=== PATIENT | female | born 1975 | race Two or more races ===

== ENCOUNTER 2022-02-01 08:40 | Outpatient (REF) | payer OTHER, SELFPAY ==
--- NOTE | ~2022-02-01 | MM_ITS ---
EXAMINATION: MM SCREENING DIGITAL BREAST TOMOSYNTHESIS, BILATERAL CLINICAL INFORMATION: Screening. Asymptomatic. The lifetime risk of breast cancer based on the Tyrer-Cuzick Model is 10%. COMPARISON: Mammography: 12/07/2018 (new baseline) TECHNIQUE: Digital breast tomosynthesis is performed in both the craniocaudal and mediolateral oblique views along with computer-aided detection (CAD). Synthesized 2D images are generated from the tomosynthesis. FINDINGS: There are scattered areas of fibroglandular density (ACR BI-RADS breast composition Category b). There are no significant masses, abnormal calcifications, or other abnormalities. Parenchymal pattern is similar to prior new baseline exam. There is no interval mass or architectural abnormality or abnormal calcifications. The axilla and skin contours are unremarkable. No significant changes. MM/MM tomosynthesis screening BI IMPRESSION: No mammographic evidence of malignancy. ASSESSMENT: BI-RADS 1: Negative RECOMMENDATION: Routine annual mammography screening. This patient's information was entered into a reminder system with a target due date for their next mammogram.
== END 2022-02-01 08:41 | disposition home or self-care (01) ==
LOC: HO.MAMMO 08:40
PROVIDERS: Visit Provider Internal Medicine
DX: Z12.31 Encounter for screening mammogram for malignant neoplasm of breast (principal)
CPT/HCPCS: 77063; 77067

== ENCOUNTER 2022-10-27 07:25 | Emergency (ER) | payer OTHER, SELFPAY ==
--- NOTE | ~2022-10-27 | XR_ITS ---
EXAMINATION: XR CHEST CLINICAL INFORMATION: ?asthma. COMPARISON: None TECHNIQUE: Frontal view of the chest was obtained. FINDINGS: Cardiac size is normal. No abnormal tracheal deviation. Central bronchial thickening/peribronchial cuffing is noted. There is obscuration of the right cardiac border in the lower chest. Opacities noted in this region may represent vascular markings; however, airspace opacities cannot be completely excluded. There are no pertinent prior studies available for comparison. Otherwise, no focal airspace opacities are noted. No pleural effusions, pulmonary edema or pneumothorax. Regional skeleton is intact. XR/XR chest 1V IMPRESSION: Central bronchial thickening is suspected. Obscuration of the right cardiac border in the lower chest with adjacent opacities which may reflect pulmonary vascular markings; however, the possibility of airspace opacity here cannot be completely excluded. Recommend clinical correlation.
[2022-10-27 07:27] VITALS: BP 141/78; PULSE 90; RESP 20; TEMP 36.1; O2SAT 100; BMI 25.0
[2022-10-27 08:56] LABS: IDNOW Serial# BCCEAD1C; Influenza A Negative (Negative); Influenza B2 Negative (Negative)
[2022-10-27 08:57] LABS: COVID-19 Test Negative (Negative); IDNOW Serial# 16C4AD1C
--- NOTE | 2022-10-27 09:14 | ED_ITS ---
HPI - General Adult General Chief complaint: Dyspnea Stated complaint: asthma Time Seen by Provider: 10/27/22 08:14 Source: patient Mode of arrival: ambulatory Limitations: no limitations History of Present Illness HPI narrative: 47-year-old female with history of asthma presents to ED for coughing for 1 week, and chest tightness the past 2 days/asthma exacerbation. Patient denies any leg swelling, calf pain, coughing up blood, recent long travel, recent surgery, pleurisy, control use, or recent trauma. Related Data Previous Rx's Medication Instructions Recorded amoxicillin 500 mg capsule 1,000 mg PO TID 5 days #30 caps 10/27/22 doxycycline hyclate 100 mg capsule 100 mg PO BID 5 days #10 caps 10/27/22 prednisone 20 mg tablet 40 mg PO DAILY 5 days #10 tabs 10/27/22 Allergies Allergy/AdvReac Type Severity Reaction Status Date / Time No Known Allergies Allergy Unverified 07/26/20 19:35 [No Known Allergies*] Review of Systems Review of Systems: Cough, chest tightness, asthma exacerbation Yes all other systems are reviewed and are negative [facility] Social History Social History Alcohol intake: never Smoked in Last 30 Days: No Use of substances other than those prescribed or required for medical reasons: No Advance Directives: No Advance Directives Information Provided: Yes Patient : Yes Physical Exam ED Vital Signs: Vital Signs - 24 hr 10/27/22 07:27 Temperature 97 F Pulse Rate 90 Respiratory Rate 20 Blood Pressure 141/78 H Pulse Oximetry 100 Oxygen Delivery Method Room Air BMI result Body Mass Index 25.0 Const General: cooperative, healthy appearing, comfortable, no acute distress, well developed, alert and awake Orientation/consciousness: oriented to person, oriented to place, oriented to time and patient oriented x3 [facility] Head: Yes normal to inspection, Yes No palpable skull fracture present, Yes normocephalic, Yes atraumatic and No abrasion Ears: hearing grossly normal bilaterally, external ears normal, TM's normal bilaterally, EAC's normal, mastoids normal and no periauricular adenopathy Face and sinus: Yes normal facial exam and Yes sinuses nontender Mouth: Normal oral and palatal mucosa present, lip normal and tongue normal Teeth and gingiva: dentition normal and gingiva normal Throat: Yes posterior oropharynx normal, Yes tonsils normal and Yes uvula midline Eyes General: appearance normal, both eyes and all related structures Neck Neck: Yes normal visual inspection, Yes full ROM, Yes no lymphadenopathy, Yes no meningeal signs, Yes trachea midline, Yes supple, No anterior neck swelling and No tender Chest Chest palpation & inspection: normal inspection of the chest and normal palpation of entire chest wall Resp Effort & Inspection: normal respiratory effort and able to speak in complete sentences Auscultation: clear to auscultation bilaterally Cardio Jugular venous distension: no JVD Heart sounds: S1 normal heart sound present and S2 normal heart sound present GI Inspection: Yes normal to inspection and No abdominal wall ecchymosis Palpation (GI): Soft to palpation, not firm, nontender, no guarding and not rigid General: No CVA tenderness and Yes no CVA tenderness Back/Spine/Pelvis Back: no CVA tenderness, No CVA tenderness and No back tenderness Skin General skin exam: no rashes or lesions noted and elasticity normal Neuro General: oriented to person, oriented to place, oriented to time, patient oriented x3, gait normal, tone normal, moves all extremities, Normal light touch and pain sensation, no meningeal signs, no focal motor deficits and CN's II-XI intact bilaterally Extrem Other: Bilateral lower extremities negative for swelling, edema, or calf tenderness. General: Yes normal to inspection and Yes full ROM Psych Appearance: grossly normal, well kempt and not disheveled Course Course Course Narrative: Chest x-ray, COVID, influenza ordered Reevaluation(s) Reevaluation #1: Chest x-ray shows bronchial thickening and pneumonia. COVID influenza negative. Patient will be discharged with antibiotics and steroids. Patient informed continue albuterol at home. Time: 09:18 Medical Decision Making Lab Data Labs: Lab Results 10/27/22 10/27/22 Range/Units 08:10 08:10 COVID-19 (JOHANA) Negative (Negative) COVID-19 Clin Com See Note Influenza Type A (TEQUILA) Negative (Negative) Influenza Type B (TEQUILA) Negative (Negative) Influenza A & B Note See Note Discharge Plan Discharge Clinical Impression: Community acquired pneumonia, Asthma with exacerbation Patient Disposition: Home, Self-Care Instructions: Asthma (ED), Community Acquired Pneumonia (ED) Additional Instructions: You will be discharged with antibiotics for pneumonia on the x-ray. Continues albuterol inhaler as needed at home. He will be discharged with steroids also. Return to the ED for any chest pain, leg swelling, calf pain, coughing up blood, chest pain on inspiration, weakness, dizziness, or any other concerning symptoms. Please follow-up with primary care provider Prescriptions: New amoxicillin 500 mg capsule 1,000 mg PO TID 5 Days Qty: 30 0RF doxycycline hyclate 100 mg capsule 100 mg PO BID 5 Days Qty: 10 0RF prednisone 20 mg tablet 40 mg PO DAILY 5 Days Qty: 10 0RF Stand Alone Forms: Work/School Release Interventions: ED Discharge Assessment Last Done: 10/27/22 09:27 Discharge Date/Time: 10/27/22 09:27 Print Language: Turkish
== END 2022-10-27 09:27 | disposition home or self-care (01) ==
PROVIDERS: Emergency Provider Emergency Medicine; PCP Internal Medicine
DX: J18.9 Pneumonia, unspecified organism (principal); R06.02 Shortness of breath; Z20.822 Contact with and (suspected) exposure to COVID-19; Z79.899 Other long term (current) drug therapy
CPT/HCPCS: 71045; 87502; 87635; 99283

== ENCOUNTER 2022-11-10 08:42 | Emergency (ER) | payer OTHER, SELFPAY ==
--- NOTE | ~2022-11-10 | XR_ITS ---
EXAMINATION: XR chest 2V CLINICAL INFORMATION: Reason for Exam cough, recent pna COMPARISON: 10/27/2022 TECHNIQUE: XR chest 2V Lungs and Justa: Mild diffuse increased interstitial lung marking and peribronchial cuffing might be chronic or mild small airway disease. No dense focal consolidation. Pleura: Normal. Costophrenic angles are sharp. No pneumothorax. Heart: The heart is normal in size. Mediastinum: The mediastinum is within normal limits.. Bones: Skeletal structures included are normal for patient's age. XR/XR chest 2V IMPRESSION: * Mild diffuse increased interstitial lung marking and peribronchial cuffing might be chronic or mild small airway disease. * No dense focal consolidation pneumonia.
[2022-11-10 08:44] VITALS: BP 137/82; PULSE 99; RESP 16; TEMP 36.8; O2SAT 99; BMI 25.0
--- NOTE | 2022-11-10 09:48 | ED_ITS ---
HPI - URI/Sore Throat General Chief Complaint: Upper Respiratory Symptoms Stated Complaint: asthma Time Seen by Provider: 11/10/22 09:07 Source: patient Mode of arrival: ambulatory Limitations: no limitations History of Present Illness HPI Narrative: 47-year-old female with history of hypothyroidism, asthma, hypertension presents with 5 days of cough and wheezing. Patient reports she was here on October 27 and diagnosed with pneumonia. Patient reports she did 5 days of azithromycin and prednisone and felt better. However symptoms began again. Patient using albuterol MDI with continued symptoms. She denies any fevers, chills, vomiting, diarrhea, chest pain, shortness of breath, skin rash, headache. Denies any leg swelling or leg pain. MD elicited complaint: cough Pertinent past history: asthma Related Data Previous Rx's Medication Instructions Recorded amoxicillin 500 mg capsule 1,000 mg PO TID 5 days #30 caps 10/27/22 doxycycline hyclate 100 mg capsule 100 mg PO BID 5 days #10 caps 10/27/22 prednisone 20 mg tablet 40 mg PO DAILY 5 days #10 tabs 10/27/22 prednisone 20 mg tablet 40 mg PO DAILY #10 tabs 11/10/22 Allergies Allergy/AdvReac Type Severity Reaction Status Date / Time No Known Allergies Allergy Unverified 07/26/20 19:35 [No Known Allergies*] Review of Systems Review of Systems: Yes all other systems are reviewed and are negative Constitutional: Constitutional: Reports no additional constitutional complaints, Denies body ache(s), Denies chills, Denies fever(s), Denies headac he(s) and Denies weakness Eyes: Eyes: Reports no additional eye complaints and Denies change in vision ENT: Reports system reviewed and no additional complaints, except as documented, Denies dizziness, Denies headache(s), Denies nasal congestion, Denies nasal discharge and Denies neck pain Cardiovascular: Cardiovascular: Reports no additional cardiovascular complaints, Denies chest pain, Denies leg edema and Denies dyspnea Respiratory: Respiratory: Reports no additional respiratory complaints, Reports cough, Denies dyspnea and Reports wheezing Gastrointestinal: Gastrointestinal: Reports no additional gastrointestinal complaints, Denies abdominal pain, Denies diarrhea, Denies nausea and Denies vomiting Genitourinary: Genitourinary: Reports no additional female genitourinary complaints and Denies urinary incontinence Musculoskeletal: Musculoskeletal: Reports no additional musculoskeletal complaints, Denies back pain, Denies arthralgias, Denies joint swelling, Denies neck pain, Denies numbness and Denies tingling Integumentary/Breasts: Skin/Breast: Reports system reviewed and no additional complaints, except as docu and Denies rash Neurologic: Reports system reviewed and no additional complaints, except as documented, Denies Abnormal speech present, Denies dizziness, Denies headache(s), Denies numbness, Denies tingling and Denies weakness Allergic/Immunologic: Allergic/Immunologic: Reports wheezing [facility] Past Medical History Attestation statement: The following information was validated with the patient. Source: old records reviewed and nursing notes reviewed Social History Social History Alcohol intake: never Smoked in Last 30 Days: No Use of substances other than those prescribed or required for medical reasons: No Advance Directives: No Advance Directives Information Provided: No Physical Exam Vital Signs: Vital Signs: Last Vital Signs Temp 98.2 F 11/10/22 08:44 Pulse 78 11/10/22 10:27 Resp 16 11/10/22 10:27 BP 137/82 11/10/22 08:44 Pulse Ox 99 11/10/22 08:44 O2 Del Method 11/10/22 08:44 BMI result Body Mass Index 25.0 Const: General: cooperative, healthy appearing, comfortable and no acute distress Orientation/consciousness: patient oriented x3 Limitations: no limitations HEENT: Head: Yes normal to inspection Ears: hearing grossly normal bilaterally and TM's normal bilaterally General nose exam: Normal external nose present Face and sinus: Yes normal facial exam Mouth: Normal oral and palatal mucosa present Throat: Yes posterior oropharynx normal, Yes tonsils normal and Yes uvula midline Eyes: General: appearance normal, both eyes and all related structures Pupils: Equal, round and reactive pupils present Neck: Neck: Yes normal visual inspection, Yes full ROM, Yes no lymphadenopathy and Yes no meningeal signs Chest: Chest palpation & inspection: normal inspection of the chest Resp: Other: Expiratory wheezing Effort & Inspection: normal respiratory effort Cardio: Rate: regular rate Rhythm: regular rhythm Peripheral pulses: Peripheral pulses 2+ throughout GI: Inspection: Yes normal to inspection Palpation (GI): Soft to palpation and nontender Auscultation: normal bowel sounds Back/Spine/Pelvis: Thoracic/Lumbar Spine: thoracic and lumbar spine normal to inspection Skin: General skin exam: no rashes or lesions noted Neuro: General: patient oriented x3, no meningeal signs, no focal motor deficits and normal sensation to monofilament Cranial nerves: Yes Equal, ro und and reactive pupils present Cognition (Neuro): normal cognition Speech: No Abnormal speech present Gait exam (Neuro): Normal gait present Motor exam (neuro): 5/5 motor strength present throughout Extrem: General: Yes normal to inspection, Yes no pedal edema and Yes no calf tenderness Course Course Course Narrative: Testing for flu, COVID, RSV are negative. Chest x-ray shows no acute finding. Patient with wheezing this improved after receiving a DuoNeb. Likely asthma exacerbation. Patient will be treated with course of prednisone. Patient reports adequate albuterol at home. Recommend follow-up with primary care doctor for further management of her asthma. Reviewed worrisome signs and symptoms when to return to the emergency room. Comfortable w/ discharge home. Medications Administered Discontinued Medications Generic Name Dose Route Start Last Admin Trade Name Freq PRN Reason Stop Dose Admin Albuterol/Ipratropium 3 ml 11/10/22 09:52 11/10/22 10:27 Albuterol/Iprat 2.5/0.5mg 3 Ml Ampul.Neb INHALE 11/10/22 09:53 3 ml ONCE ONE Administration Prednisone 60 mg 11/10/22 09:52 11/10/22 10:10 Prednisone 20 Mg Tablet PO 11/10/22 09:53 60 mg ONCE ONE Administration Medical Decision Making Medical Decision Making [facility] Narrative: 47-year-old female with a history of asthma here with 5 days of cough and wheezing. Patient with recent pneumonia treated with azithromycin with improvement of symptoms. Vitals stable. Expiratory wheezing throughout. Will send testing for flu, COVID, RSV. Will obtain chest x-ray. Patient received DuoNeb and p.o. prednisone. Differential Diagnosis Differential Diagnoses: The differential diagnosis associated with the presentation includes Asthma exacerbation, pneumonia, influenza, viral syndrome Lab Data [facility] Lab Attestation statement: I reviewed the patient's lab results. Labs: Lab Results 11/10/22 Range/Units 10:32 Influenza Type A (PCR) NEGATIVE (Negative) Influenza Type B (PCR) NEGATIVE (Negative) RSV RNA Qual (PCR) NEGATIVE (Negative) SARS-CoV-2 RNA (RT-PCR) NEGATIVE (Negative) Independent Interpretation I performed an independent interpretation of an: Plain X-Ray (I independently reviewed the x-ray which shows No signs of pneumonia) Radiology Impression Discussion of test interpretation with radiology: I have reviewed the radiologist's reading. Radiologist Impression: XR/XR chest 2V IMPRESSION: ? *? Mild diffuse increased interstitial lung marking and peribronchial cuffing might be chronic or mild small airway disease. ? *? No dense focal consolidation pneumonia. Discharge Plan Discharge Clinical Impression: Upper respiratory infection, Asthma exacerbation Patient Disposition: Home, Self-Care Instructions: Asthma (ED), Upper Respiratory Infection (ED) Additional Instructions: X-ray shows no signs of pneumonia Testing for flu, COVID, RSV are negative Take the prednisone as prescribed Continue your inhaler. Return for worsening symptoms Prescriptions: New prednisone 20 mg tablet 40 mg PO DAILY Qty: 10 0RF No Action amoxicillin 500 mg capsule 1,000 mg PO TID 5 Days Qty: 30 0RF doxycycline hyclate 100 mg capsule 100 mg PO BID 5 Days Qty: 10 0RF prednisone 20 mg tablet 40 mg PO DAILY 5 Days Qty: 10 0RF Referrals: Cora Deleon MD [Primary Care Provider] - 10 days Stand Alone Forms: Work/School Release
[2022-11-10] MEDS: predniSONE 20 MG TABLET 60 MG PO (10:10)
[2022-11-10 10:27] VITALS: PULSE 78; RESP 16; O2SAT 98
[2022-11-10] MEDS: Albuterol/Iprat 2.5/0.5MG 3 ML AMPUL.NEB INHALE (10:27)
[2022-11-10 11:43] LABS: Influenza A PCR NEGATIVE (Negative); Influenza B PCR NEGATIVE (Negative); Resp Syncy Virus RNA Qual PCR NEGATIVE (Negative); SARS COV2 PCR INHOUSE NEGATIVE (Negative)
== END 2022-11-10 12:37 | disposition home or self-care (01) ==
PROVIDERS: Nurse Practitioner Family; Emergency Provider Student in an Organized Health Care Education/Training Program; PCP Internal Medicine
DX: J06.9 Acute upper respiratory infection, unspecified (principal); J45.901 Unspecified asthma with (acute) exacerbation; Z20.828 Contact with and (suspected) exposure to other viral communicable diseases
CPT/HCPCS: 0241U; 71046; 94640; 99284

== ENCOUNTER 2023-02-28 08:03 | Outpatient (REF) | payer OTHER, SELFPAY ==
--- NOTE | ~2023-02-28 | MM_ITS ---
EXAMINATION: MM SCREENING DIGITAL BREAST TOMOSYNTHESIS, BILATERAL CLINICAL INFORMATION: Screening. Asymptomatic. The lifetime risk of breast cancer based on the Tyrer-Cuzick Model is 10%. COMPARISON: Mammography: 02/01/2022, 12/07/2018 (new baseline) TECHNIQUE: Digital breast tomosynthesis is performed in both the craniocaudal and mediolateral oblique views along with computer-aided detection (CAD). Synthesized 2D images are generated from the tomosynthesis. Additional exaggerated left CC view is provided. FINDINGS: There are scattered areas of fibroglandular density (ACR BI-RADS breast composition Category b). Breast tissue composition borders on heterogeneously dense. There are no significant masses, abnormal calcifications, or other abnormalities. No developing density or architectural abnormality. The axilla are similar to previous studies. The skin contours are unremarkable. There are no significant changes from prior exams. MM/MM tomosynthesis screening BI IMPRESSION: No mammographic evidence of malignancy. ASSESSMENT: BI-RADS 1: Negative RECOMMENDATION: Routine annual mammography screening. This patient's information was entered into a reminder system with a target due date for their next mammogram.
== END 2023-02-28 08:04 | disposition home or self-care (01) ==
LOC: HO.MAMMO 08:03
PROVIDERS: PCP Internal Medicine; Visit Provider Internal Medicine
DX: Z12.31 Encounter for screening mammogram for malignant neoplasm of breast (principal)
CPT/HCPCS: 77063; 77067

== ENCOUNTER 2023-08-21 04:13 | Emergency (ER) | payer OTHER, SELFPAY ==
--- NOTE | 2023-08-21 | ECG_ITS ---
Test Reason : TACHYCARDIA Blood Pressure : / mmHG Vent. Rate : 105 BPM Atrial Rate : 105 BPM P-R Int : 118 ms QRS Dur : 090 ms QT Int : 334 ms P-R-T Axes : 057 051 058 degrees QTc Int : 441 ms Sinus tachycardia RSR' or QR pattern in V1 suggests right ventricular conduction delay Intra-ventricular conduction delay Nonspecific ST abnormality Lateral leads Abnormal ECG No previous ECGs available Referred By: Generic ED Physician Electronically Signed By:REYMUNDO TOLEDO MD
--- NOTE | ~2023-08-21 | CT_ITS ---
EXAMINATION: CT ABDOMEN AND PELVIS WITHOUT CONTRAST CLINICAL INFORMATION: Right renal colic COMPARISON: None available. TECHNIQUE: Multidetector volumetric imaging was performed from the superior aspect of the liver through the pubic symphysis. Sagittal and coronal reformatted images were obtained on the technologist's workstation. This CT examination was performed using dose optimization techniques as appropriate, variously including the following: *Automated exposure control *Adjustment of mA and/or kV according to patient size (this includes techniques or standardized protocols for targeted exams where dose is matched to indication/reason for exam; i.e. extremities or head) *Use of iterative reconstruction technique DLP: 443 mGy-cm FINDINGS: LUNG BASES: Subsegmental atelectasis within the middle lobe and lingula. LIVER, GALLBLADDER, AND BILIARY TREE: The liver is normal in size, shape, and attenuation. No focal hepatic lesion or biliary ductal dilatation is present. The gallbladder is unremarkable with no evidence of radiopaque gallstones, gallbladder wall thickening, or obvious pericholecystic inflammatory changes. PANCREAS: Unremarkable. SPLEEN: Unremarkable. ADRENAL GLANDS: Unremarkable. KIDNEYS AND URETERS: Bilateral simple fluid attenuating renal cysts are benign. No follow-up imaging recommended. Mild right pelvocaliectasis without belen hydronephrosis. There is mild prominence of the right ureter and periureteral fat stranding. No urinary calculi are identified. BLADDER: Unremarkable. GASTROINTESTINAL TRACT: The small and large bowel are unremarkable. The appendix is unremarkable. ABDOMINAL WALL: Small fat-containing umbilical hernia. LYMPH NODES: Normal. VASCULAR: Unremarkable. PELVIC VISCERA: Uterus and adnexa unremarkable. OSSEOUS STRUCTURES: No acute or suspicious osseous abnormalities. CT/CT abdomen pelvis wo IV con IMPRESSION: * No urinary calculi are identified. * There is mild right pelvocaliectasis and mild prominence of the right ureter with periureteral fat stranding. This could be compatible with a recently passed stone or ureteritis. Please correlate with urinalysis.
[2023-08-21 04:15] VITALS: BP 110/59; PULSE 125; RESP 18; TEMP 37.7; O2SAT 95; BMI 25.1
[2023-08-21 04:38] VITALS: BP 112/53; PULSE 111; RESP 18; TEMP 37.7; O2SAT 94
--- NOTE | 2023-08-21 04:51 | PC.NURSE ---
this rn assumed care of pt. pt a&ox3. respirations even and unlabored. pt coming from home reporting sudden onset of right flank pain with burning with urination. pt reports having one episode of nausea and vomiting before coming to the ED. pt denies abdominal pain, chest pain and SOB. pt reports blood in urine but states she is also on her period. pt right flank tender to touch, abdomen soft non tender to touch. pt denies trauma to the back. pt sinus tachy on tele 114-117. Iv established, labs and urine obtained and sent to lab.
[2023-08-21 04:52] LABS: Basophils Percent Auto 0.3 % (0-2); Eosinophils Absolute Auto 0.1 X10*3/uL (0.0-0.4); Eosinophils Percent Auto 0.4 % (0-4); Hematocrit 26.4 % (37.0-47.0); Hemoglobin 7.9 g/dl (12.0-16.0); Imm Gran Abs Auto 0.05 X10*3/uL (0.00-0.03); Imm Gran Pct Auto 0.4 % (0.0-0.4); Lymphocytes Absolute Auto 1.4 X10*3/uL (1.2-4.9); Lymphocytes Percent Auto 10.1 % (20-40); MANUAL DIFF FLAG NO; Mean Corpuscular HGB Conc 29.9 g/dl (31.0-35.0); Mean Corpuscular Hemoglobin 19.1 pg (27.0-33.0); Monocytes Absolute Auto 0.1 X10*3/uL (0.1-1.2); Monocytes Percent Auto 0.8 % (2-11); Platelet Count 437 X10*3/uL (160-400); Red Blood Count 4.14 X10*6/uL (4.20-5.50); White Blood Count 13.7 X10*3/uL (4.8-10.8)
[2023-08-21 04:53] LABS: Mean Corpuscular Volume 63.8 fL (80.0-98.0)
--- NOTE | 2023-08-21 05:01 | ED_ITS ---
HPI - Female Genitourinary General Chief complaint: Urogenital-Female Stated complaint: Pain in lower right side Time Seen by Provider: 08/21/23 04:56 Source: patient Mode of arrival: ambulatory Limitations: no limitations History of Present Illness HPI Narrative: Patient with no significant past medical history of kidney stone or gallstone comes here with sudden onset of right flank pain started at 22:00 with nausea vomited 1 time no fever had some chills no hematuria had slight dysuria no frequency no abdominal pain or distention Related Data Previous Rx's Medication Instructions Recorded amoxicillin 500 mg capsule 1,000 mg (2 x 500 mg) PO TID 5 10/27/22 days #30 caps doxycycline hyclate 100 mg capsule 100 mg PO BID 5 days #10 caps 10/27/22 prednisone 20 mg tablet 40 mg (2 x 20 mg) PO DAILY 5 days 10/27/22 #10 tabs prednisone 20 mg tablet 40 mg (2 x 20 mg) PO DAILY #10 tabs 11/10/22 cefuroxime axetil 250 mg tablet 250 mg PO BID 10 days #20 tabs 08/21/23 ibuprofen 600 mg tablet 600 mg PO Q6H PRN fever or pain 08/21/23 #30 tabs Allergies Allergy/AdvReac Type Severity Reaction Status Date / Time No Known Allergies Allergy Unverified 07/26/20 19:35 [No Known Allergies*] Review of Systems 2 Review of Systems: Yes all other systems are reviewed and are negative [facility] Social History Social History Alcohol intake: current Alcohol intake frequency: holidays/special occasions only Smoked in Last 30 Days: No Use of substances other than those prescribed or required for medical reasons: No Advance Directives: No Advance Directives Information Provided: No Patient : No Physical Exam 2 Vital Signs: Vital Signs: Last Vital Signs Temp 98.2 F 08/21/23 06:42 Pulse 87 08/21/23 06:48 Resp 18 08/21/23 06:48 BP 90/48 L 08/21/23 06:48 Pulse Ox 98 08/21/23 06:48 O2 Del Method Room Air 08/21/23 06:48 BMI result Body Mass Index 25.1 Appearance: Alert. Oriented X3. Mild distress Eyes: PERRLA, ENT: Pharynx normal. Oral Mucosa moist Neck: Normal inspection. Neck supple. CVS: Normal heart rate and rhythm. Pulses normal. Respiratory: No respiratory distress. Equal air entry bilateral, no wheezing/rales/rhonchi Abdomen: Soft and nontender. Bowel sounds are present, no mass palpable, R CVA tenderness Skin: Skin warm and dry. Normal skin color. Normal skin turgor. Extremities: No lower extremity edema. No calf tenderness Neuro: Oriented X 3. Medications Administered Discontinued Medications Generic Name Dose Route Start Last Admin Trade Name Freq PRN Reason Stop Dose Admin Acetaminophen 975 mg 08/21/23 05:51 08/21/23 06:15 Acetaminophen 325 Mg Tablet PO 08/21/23 05:52 975 mg ONCE ONE Administration Ferrous Sulfate 324 mg 08/21/23 05:51 08/21/23 06:15 Ferrous Sulfate 324 Mg Tablet.Dr PO 08/21/23 05:52 324 mg ONCE ONE Administration Sodium Chloride 1,000 mls @ 999 mls/hr 08/21/23 05:05 08/21/23 05:13 Ns IV 08/21/23 06:05 999 mls/hr .Q1H1M ONE Administration Ceftriaxone Sodium 1 gm/ 50 mls @ 100 mls/hr 08/21/23 05:48 08/21/23 06:45 Sodium Chloride IV 08/21/23 06:17 Infused ONCE ONE Infusion Sodium Chloride 1,000 mls @ 999 mls/hr 08/21/23 05:51 08/21/23 06:15 Ns IV 08/21/23 06:51 999 mls/hr .Q1H1M ONE Administration Ketorolac Tromethamine 30 mg 08/21/23 05:05 08/21/23 05:13 Ketorolac Tromethamine 30 Mg/Ml Vial IVPUSH 08/21/23 05:06 30 mg ONCE ONE Administration Morphine Sulfate 4 mg 08/21/23 05:05 08/21/23 05:14 Morphine Sulfate 4 Mg/Ml Cartridge IVPUSH 08/21/23 05:06 4 mg ONCE ONE Administration Protocol Ondansetron HCl 4 mg 08/21/23 05:05 08/21/23 05:13 Ondansetron Hcl 4 Mg/2 Ml Vial IVPUSH 08/21/23 05:06 4 mg ONCE ONE Administration Medical Decision Making Medical Decision Making MDM Narrative: Patient with possible recently passed kidney stone with UTI not septic lactic acid normal was given dose of Rocephin discharge patient home on Ceftin and tramadol for pain Differential Diagnosis Differential Diagnoses: The differential diagnosis associated with the presentation includes Renal colic/stone/UTI/gallstone Lab Data [facility] Lab Attestation statement: I reviewed the patient's lab results. 08/21/23 04:46 08/21/23 04:46 Labs: Lab Results 08/21/23 08/21/23 08/21/23 Range/Units 04:46 05:01 06:13 WBC 13.7 H (4.8-10.8) X10*3/uL RBC 4.14 L (4.20-5.50) X10*6/uL Hgb 7.9 L (12.0-16.0) g/dl Hct 26.4 L (37.0-47.0) % MCV 63.8 L (80.0-98.0) fL MCH 19.1 L (27.0-33.0) pg MCHC 29.9 L (31.0-35.0) g/dl RDW 18.0 H (11.0-16.0) % Plt Count 437 H (160-400) X10*3/uL MPV 9.0 L (9.4-12.3) fL Immature Gran % (Auto) 0.4 (0.0-0.4) % Neut % (Auto) 88.0 H (45-73) % Lymph % (Auto) 10.1 L (20-40) % Webster % (Auto) 0.8 L (2-11) % Eos % (Auto) 0.4 (0-4) % Baso % (Auto) 0.3 (0-2) % Lymph # (Auto) 1.4 (1.2-4.9) X10*3/uL Webster # (Auto) 0.1 (0.1-1.2) X10*3/uL Eos # (Auto) 0.1 (0.0-0.4) X10*3/uL Baso # (Auto) 0.0 (0.0-0.2) X10*3/uL Abs Immat Gran (auto) 0.05 H (0.00-0.03) X10*3/uL Absolute Neuts (auto) 12.0 H (2.0-8.3) x10*3/uL Absolute Nucleated RBC 0.000 (0.0-0.012) X10*3/uL Nucleated RBC % (auto) 0.0 (0.0-0.2) /100WBC Sodium 142 (135-145) mmol/L Potassium 3.4 (3.3-5.1) mmol/L Chloride 105 (96-108) mmol/L Carbon Dioxide 24 (22-29) mmol/L Anion Gap 16 (12-20) BUN 19 H (9-16) mg/dL Creatinine 0.80 (0.5-1.4) mg/dL Estim Creat Clear Calc 83.6 Estimated GFR > 60 Random Glucose 108 (60-115) mg/dL Lactic Acid 1.8 (0.5-2.0) mmol/L Calcium 8.9 (8.4-10.2) mg/dL Total Bilirubin 0.7 (0.0-1.0) mg/dL AST 12 (5-31) U/L ALT 13 (0-31) U/L Alkaline Phosphatase 53 (39-117) U/L Total Protein 6.6 (6.5-8.0) g/dL Albumin 3.8 (3.5-5.0) g/dL Urine Color Yellow Urine Appearance Cloudy Urine pH 5.5 (5.0-9.0) Ur Specific Flora 1.015 (1.005-1.025) Urine Protein Trace (Neg-Trace) mg/dL Urine Glucose (UA) Negative (Negative) mg/dL Urine Ketones Negative (Negative) mg/dL Urine Blood Trace H (Negative) Urine Nitrite Positive H (Negative) Ur Leukocyte Esterase Large (3+) H (Negative) Urine RBC 0-2 (0-2) /HPF Urine WBC >50 H (0-5) /HPF Ur Squamous Epith Cells 0-2 (0-2) /HPF Urine Bacteria 4+ (None Seen) Hyaline Casts 0-2 (0-2) /LPF Urine Test NEGATIVE (NEGATIVE) COVID-19 (JOHANA) Negative (Negative) COVID-19 Clin Com See Note Radiology Impression Discussion of test interpretation with radiology: I have reviewed the radiologist's reading. Radiologist Impression: RDER #: [id number] CT/CT abdomen pelvis wo IV con IMPRESSION: * No urinary calculi are identified. * There is mild right pelvocaliectasis and mild prominence of the right ureter with periureteral fat stranding. This could be compatible with a recently passed stone or ureteritis. Please correlate with urinalysis. Discharge Plan Discharge Clinical Impression: Urinary tract infection, Renal colic on right side Patient Disposition: Home, Self-Care Instructions: Urinary Tract Infection in Women (ED), Renal Colic (ED) Additional Instructions: Drink plenty of fluids Possibly you have passed a kidney stone Antibiotic as prescribed Ibuprofen for pain Prescriptions: New cefuroxime axetil 250 mg tablet 250 mg PO BID 10 Days Qty: 20 0RF ibuprofen 600 mg tablet 600 mg PO Q6H PRN (Reason: fever or pain) Qty: 30 0RF No Action prednisone 20 mg tablet 40 mg PO DAILY Qty: 10 0RF amoxicillin 500 mg capsule 1,000 mg PO TID 5 Days Qty: 30 0RF doxycycline hyclate 100 mg capsule 100 mg PO BID 5 Days Qty: 10 0RF prednisone 20 mg tablet 40 mg PO DAILY 5 Days Qty: 10 0RF
[2023-08-21 05:03] LABS: COVID-19 Test Negative (Negative); IDNOW Serial# 6674DD1D
[2023-08-21 05:05] LABS: Alanine Aminotransferase 13 U/L (0-31); Albumin Level 3.8 g/dL (3.5-5.0); Alkaline Phosphatase 53 U/L (39-117); Anion Gap 16 (12-20); Aspartate Amino Transferase 12 U/L (5-31); Bilirubin Total 0.7 mg/dL (0.0-1.0); Blood Urea Nitrogen 19 mg/dL (9-16); Calcium 8.9 mg/dL (8.4-10.2); Carbon Dioxide 24 mmol/L (22-29); Chloride 105 mmol/L (96-108); Creatinine Clr Calc Pharmacy 83.6; Estimated Glomerular Filt Rate > 60; Glucose Random 108 mg/dL (60-115); Potassium 3.4 mmol/L (3.3-5.1); Sodium 142 mmol/L (135-145); Total Protein 6.6 g/dL (6.5-8.0)
[2023-08-21 05:05] LABS: UPreg QC Valid YES
[2023-08-21 05:07] LABS: Appearance Urine Cloudy; Color Urine Yellow; Glucose Urine UA Negative (Negative); Leukocyte Esterase Urine Large (3+) (Negative); Nitrite Urine Positive (Negative); PH 5.5 (5.0-9.0); Specific Gravity - Urine 1.015 (1.005-1.025); UMIC TRIGGER UACC YES; Urine Blood Trace (Negative); Urine Ketones Negative (Negative); Urine Pregnancy NEGATIVE (NEGATIVE); Urine Protein Trace mg/dL (Neg-Trace)
[2023-08-21 05:12] LABS: Bacteria Urine 4+ (None Seen); Hyaline Casts Urine 0-2 /LPF (0-2); RBC Urine 0-2 /HPF (0-2); Squamous Epithelial Cell Urine 0-2 /HPF (0-2); UACC Culture Trigger YES; WBC Urine >50 /HPF (0-5)
[2023-08-21] MEDS: Ketorolac Tromethamine 30 MG/ML VIAL IVPUSH (05:13)
[2023-08-21] MEDS: ondansetron HCL 4 MG/2 ML VIAL IVPUSH (05:13)
[2023-08-21] MEDS: 0.9 % Sodium Chloride 1,000 ML 999 ML IV ×2 (05:13→06:15)
[2023-08-21] MEDS: Morphine Sulfate 4 MG/ML CARTRIDGE IVPUSH (05:14)
[2023-08-21] MEDS: Acetaminophen 325 MG TABLET 975 MG PO (06:15)
[2023-08-21] MEDS: Ferrous Sulfate 324 MG TABLET.DR PO (06:15)
[2023-08-21] MEDS: cefTRIAXone sodium 1 GM in 0.9 % Sodium Chloride 50 ML IV (06:22)
[2023-08-21 06:29] LABS: Lactic Acid 1.8 mmol/L (0.5-2.0)
[2023-08-21 06:42] VITALS: BP 88/47; PULSE 86; RESP 18; TEMP 36.8; O2SAT 98
--- NOTE | 2023-08-21 06:45 | PC.NURSE ---
Iv normal saline liter piggy back hanging at this time. iv antibiotic complete at this time.
[2023-08-21 06:48] VITALS: BP 90/48; PULSE 87; RESP 18; O2SAT 98
[2023-08-21 07:07] VITALS: BP 85/46; PULSE 90; RESP 15; TEMP 36.9; O2SAT 96
== END 2023-08-21 07:39 | disposition home or self-care (01) ==
PROVIDERS: Emergency Provider Internal Medicine; PCP Internal Medicine
DX: N39.0 Urinary tract infection, site not specified (principal); B96.20 Unspecified Escherichia coli [E. coli] as the cause of diseases classified elsewhere; N23 Unspecified renal colic; Z11.52 Encounter for screening for COVID-19
CPT/HCPCS: 36415; 74176; 80053; 81001; 81025; 83605; 85025; 87040; 87086; 87088; 87186; 87635; 93005; 96361; 96374; 96375; 99284; 99285; J0696; J1885; J2270; J2405

== ENCOUNTER 2024-01-09 07:34 | Outpatient (REF) | payer OTHER, SELFPAY ==
--- NOTE | ~2024-01-09 | XR_ITS ---
EXAMINATION: XR FOOT, RIGHT CLINICAL INFORMATION: Right heel pain COMPARISON: None available. TECHNIQUE: AP, lateral, and oblique views of the right foot. FINDINGS: The bones are intact. No fracture. Alignment is anatomic. Joint spaces are maintained. There is a large Achilles enthesophyte and a small ossific or calcific density seen adjacent to the insertion of the Achilles tendon. There is a tiny posterior plantar calcaneal spur. XR/XR foot RT min 3V IMPRESSION: Large Achilles enthesophyte and small ossific or calcific density adjacent to the insertion of the Achilles tendon.
[2024-01-09 09:13] LABS: Anion Gap 13 (12-20); Blood Urea Nitrogen 10 mg/dL (9-16); Calcium 9.4 mg/dL (8.4-10.2); Carbon Dioxide 30 mmol/L (22-29); Chloride 103 mmol/L (96-108); Cholesterol 155 mg/dL (<200); Estimated Glomerular Filt Rate > 60; Glucose Random 103 mg/dL (60-115); HDL Cholesterol 60 mg/dL (>40); LDL Cholesterol Calculated 78 mg/dL (<100); Potassium 3.7 mmol/L (3.3-5.1); Sodium 142 mmol/L (135-145); Triglycerides 87 mg/dL (<150)
[2024-01-09 09:30] LABS: Ferritin 8 ng/mL (10-250); TSH reflex Free T4 2.16 uIU/mL (0.32-4.0); Vitamin D 25-OH Total 17.1 ng/mL (>30)
[2024-01-09 10:00] LABS: Reflex LDLD? No
== END 2024-01-09 07:35 | disposition home or self-care (01) ==
LOC: HO.LAB 07:34
PROVIDERS: PCP Internal Medicine; Visit Provider Internal Medicine
DX: M79.671 Pain in right foot (principal); D64.9 Anemia, unspecified; I10 Essential (primary) hypertension; E55.9 Vitamin D deficiency, unspecified; G89.29 Other chronic pain
CPT/HCPCS: 36415; 73630; 80048; 80061; 82306; 82728; 84443

== ENCOUNTER 2024-01-15 15:06 | Outpatient (REF) | payer OTHER, SELFPAY ==
--- NOTE | ~2024-01-15 | US_ITS ---
EXAMINATION: US RETROPERITONEAL COMPLETE (RENAL) CLINICAL INFORMATION: Renal cyst. COMPARISON: CT abdomen and pelvis 08/21/2023. TECHNIQUE: Real-time imaging of the kidneys and bladder. FINDINGS: RIGHT KIDNEY: 11.8 x 5.7 x 4.4 cm (SAG x AP x TRV). The kidney is normal in size, contour, and echogenicity. Renal cortical thickness is normal. No renal calculi or hydronephrosis. Benign-appearing renal cyst measuring 5.7 cm, previously 6.2 cm. No follow up imaging is recommended. LEFT KIDNEY: 12.3 x 6.5 x 6.7 cm (SAG x AP x TRV). The kidney is normal in size, contour, and echogenicity. Renal cortical thickness is normal. No renal calculi or hydronephrosis. Benign-appearing renal cyst measuring 7.4 cm, previously 7.3 cm. No follow up imaging is recommended. BLADDER: Well distended and normal. Bilateral ureteral jets are demonstrated. Prevoid bladder volume is 270.1 mL. Postvoid bladder volume is 30.6 mL. US/US retroperitoneal comp IMPRESSION: Benign-appearing bilateral renal cysts measuring up to 7.4 cm on the left. No follow up imaging is recommended.
== END 2024-01-15 15:07 | disposition home or self-care (01) ==
LOC: HO.US 15:06
PROVIDERS: PCP Internal Medicine; Visit Provider Internal Medicine
DX: N26.1 Atrophy of kidney (terminal) (principal); E55.9 Vitamin D deficiency, unspecified
CPT/HCPCS: 76770

== ENCOUNTER 2024-04-21 16:16 | Outpatient (REF) | payer OTHER, SELFPAY | END 2024-04-21 16:17 | disposition home or self-care (01) | LOC: HO.MAMMO 16:16 | PROVIDERS: PCP Internal Medicine; Visit Provider Internal Medicine | DX: Z12.31 Encounter for screening mammogram for malignant neoplasm of breast (principal) | CPT/HCPCS: 77063; 77067 ==

== ENCOUNTER → 2024-04-21 16:30 | Outpatient (BNV) | payer OTHER, SELFPAY | PROVIDERS: PCP Internal Medicine; Visit Provider Radiology Diagnostic Radiology | DX: Z12.31 Encounter for screening mammogram for malignant neoplasm of breast (principal) | CPT/HCPCS: 77063; 77067 ==

== ENCOUNTER 2024-07-08 15:30 | Outpatient (RCR) | payer BC, SELFPAY | END 2024-07-08 15:53 | disposition home or self-care (01) | LOC: HO.OT 15:30 | PROVIDERS: PCP Internal Medicine; Visit Provider Internal Medicine | DX: M77.12 Lateral epicondylitis, left elbow (principal) | CPT/HCPCS: 97110; 97140; 97165 ==

== ENCOUNTER 2024-09-16 15:21 | Outpatient (AMB) | payer BC, SELFPAY ==
--- NOTE | 2024-09-16 15:27 | MHC.OFFVIS ---
Vital Signs 09/16/24 15:29 Height 5 ft 7 in Weight 167 lb 8.821 oz BMI 26.2 BP 140/67 H Blood Pressure Location Lt brachial Position Sitting Pulse 75 Intake Visit Reasons: anemia Intake Note: Sneha presents in as a new patient for anemia. CC: She has been having constipation and states since summer time she has a on and off pain in the left side of her abdomen. She states that it is a random stabbing pains. College Basketball Coach Required: No Allergies No Known Allergies [No Known Allergies*] Allergy (Unverified 09/16/24 15:31) HPI Comments Details: 49 y.o F with pmh of who is here for anemia. Pt reports longstanding hx of anemia since she was a young girl. Most recently was seen by her PCP last month and told iron levels are borderline . Has hx of menorrhagia. Has to wear tampons and pads at the same time to avoid leakage and changes this every 2 hours. No family history of blood disorders that she is aware of. Pt has never had a colo. Patient also report intermittent left upper quadrant pain, especially after meals. [facility] Social History Alcohol intake: current Alcohol intake frequency: holidays/special occasions only Review of Systems Const All systems reviewed & are unremarkable except as noted in HPI and below Physical Exam Vital Signs: Last Vital Signs Pulse 75 09/16/24 15:29 BP 140/67 H 09/16/24 15:29 BMI result Body Mass Index 26.2 No apparent distress Nonicteric Abdomen soft, nondistended Alert and oriented x3, normal gait Assessment & Plan Assessment & Plan (1) Iron deficiency: Code(s): E61.1 - Iron deficiency Category: Medical (2) LUQ pain: Code(s): R10.12 - Left upper quadrant pain Category: Medical Plan Reviewed with the patient that iron deficiency anemia appears to be secondary to menorrhagia. However, given age, we will also proceed with bidirectional endoscopy to further evaluate. Plan: -EGD/colo to be booked -PEG prep discussed -updated CBC and iron studies ordered Follow-up after procedure Orders: Orders Complete Blood Count no Diff Today E61.1 - Iron deficiency Ferritin Today E61.1 - Iron deficiency Vitamin B12 and Folate Today E61.1 - Iron deficiency IRON PROFILE Today E61.1 - Iron deficiency Medications: New peg 3350-electrolytes 236-22.74-6.74 -5.86 gram (Golytely) as per split prep instructions, until fecal effluent is clear 240 mL PO Q10M 4,000 mL 0RF colonoscopy Coding Level of Care Code New Pt Level 4 (84524) Diagnoses Iron deficiency E61.1 LUQ pain R10.12
[2024-09-16 15:29] VITALS: BP 140/67; PULSE 75; BMI 26.2
== END 2024-09-16 16:07 | disposition home or self-care (01) ==
PROVIDERS: PCP Internal Medicine; Visit Provider Internal Medicine
DX: E61.1 Iron deficiency (principal); R10.12 Left upper quadrant pain
CPT/HCPCS: 99204

== ENCOUNTER 2024-10-01 10:23 | Outpatient (REF) | payer BC, SELFPAY ==
[2024-10-01 11:10] LABS: Hemoglobin 10.8 g/dl (12.0-16.0); Mean Corpuscular HGB Conc 30.9 g/dl (31.0-35.0); Mean Corpuscular Hemoglobin 22.3 pg (27.0-33.0); Mean Corpuscular Volume 72.2 fL (80.0-98.0); Mean Platelet Volume 10.3 fL (9.4-12.3); Platelet Count 374 X10*3/uL (160-400); Red Blood Count 4.85 X10*6/uL (4.20-5.50); Red Cell Distribution Width 19.4 % (11.0-16.0); White Blood Count 8.7 X10*3/uL (4.8-10.8)
[2024-10-01 11:50] LABS: Iron 22 mcg/dL (30-160); Percent Iron Saturation 7 % (15-50); Total Iron Binding Capacity 337 mcg/dL (228-428); Unsaturated Iron Binding 315 ug/dL
[2024-10-01 12:04] LABS: Ferritin 12 ng/mL (10-250)
[2024-10-01 12:21] LABS: Folate 12.9 ng/mL (> or = 4.0); Vitamin B12 235 pg/mL (200-900)
== END 2024-10-01 10:24 | disposition home or self-care (01) ==
LOC: HO.LAB 10:23
PROVIDERS: PCP Internal Medicine; Visit Provider Internal Medicine
DX: E61.1 Iron deficiency (principal)
CPT/HCPCS: 36415; 82607; 82728; 82746; 83540; 85027

== ENCOUNTER 2024-10-24 12:27 | Outpatient (REF) | payer BC, SELFPAY ==
--- NOTE | ~2024-10-24 | XR_ITS ---
EXAMINATION: XR CHEST CLINICAL INFORMATION: Cough x 7 day. LMP Oct 05 COMPARISON: November 10, 2022 TECHNIQUE: 2 views of the chest were obtained. FINDINGS: Redemonstration mild diffuse increased interstitial lung markings with peribronchial cuffing. There is no gross pneumothorax. S-shaped thoracolumbar scoliosis with multilevel degenerative changes. Heart size is normal. No significant pleural effusion. No new focal consolidation XR/XR chest 2V IMPRESSION: Redemonstration mild diffuse increased interstitial lung markings with peribronchial cuffing. No new focal consolidation. This study was presented today to October 25, 2024 for interpretation. Stat results provided at this time as requested by referring provider. Electronically signed by: Haylee Hilton MD 10/25/2024 08:26 AM [facility]
== END 2024-10-24 12:28 | disposition home or self-care (01) ==
LOC: HO.HHCX 12:27
PROVIDERS: Visit Provider Internal Medicine
DX: R05.9 Cough, unspecified (principal)
CPT/HCPCS: 71046

== ENCOUNTER 2025-02-11 08:55 | Outpatient (REF) | payer BC, SELFPAY ==
--- OUTSIDE RECORDS SUMMARY | 2025-02-11 08:57 | XMS_ITS | Patient Health Record ---
Author Organization [facility] Address [address] [facility] [address] [place] [address] Care Team Providers Care Suction Dredge Dumping Supervisor Name Role Phone OMKAR MANNING Primary Care Provider Unav ailable STEVE SEALS Unavailable [phone] Allergies No Known Allergies Results Component Value Reference Range Notes [id number] IGP No Culture 30 Plus Reviewed date:08/11/2024 02:03:48 PM Interpretation: Performing Lab:[facility], [address], [address], [place], Phone - [phone], Director - [facility] Notes/Report: Clinical Information:[id number] LMP / Prev Treat...JYN=[id number];Cryo No. of containers..01 ThinPrep Vial DIAGNOSIS: NEGATIVE FOR INTRAEPITHELIAL LESION OR MALIGNANCY. FUNGAL ORGANISMS MORPHOLOGICALLY CONSISTENT WITH JESICA SPECIES ARE PRESENT. Specimen adequacy: Satisfactory for evaluation. Endocervical and/or squamous metaplastic cells (endocervical component) are present. Clinician provided ICD10: Z0 1.419 Performed by: Maryan maradiaga, Stable Manager (ASCP) . . Note: The Pap smear is a screening test designed to aid in the detection of premalignant and malignant conditions of the uterine cervix. It is not a diagnostic procedure and should not be used as the sole means of detecting cervical cancer. Both false-positive and false-negative reports do occur. . Test Methodology: This liquid based ThinPrep(R) pap test was screened with the use of an image guided system. HPV Aptima Negative Negative This nucleic acid amplification test detects fourteen high-risk HPV types (16,18,31,33,35,39,45,51,52,56,58 ,59,66,68) without differentiation. HPV Genotype Reflex Criteria not met, HPV Genotype not performed. PDF Report Reviewed date:08/11/2024 02:10:35 PM Interpretation: Performing Lab:[facility], [address], [address], [place], Phone - [phone], Director - [facility] Notes/Report: Clinical Information:[id number] LMP / Prev Treat...VTI=[id number];Cryo No. of containers..01 ThinPrep Vial Reason For Referral No Information Medications Medication SIG (Take, Route, Frequency, Duration) Notes Start Date End Date Status Aspirin 81 81 MG as directed Orally 0 nce a day Active Dulera 100-5 MCG/ACT Inhalation for 60 Days Active hydroCHLOROthiazide 25 MG 1 tablet in th e morning Orally Once a day Active Losartan Potassium 100 MG 1 tablet Orall y Once a day Active Atorvastatin Calcium 40 MG 1 tablet Oral ly Once a day Active Levothyroxine Sodium 25 MCG 1 tablet in the morning on an empty stomach Orally Once a day Active Social History Tobacco Use: Social History Observation Description Date Details (start date - stop date) Never Smoker NA - NA Tobacco Use/Smoking Question Answer Notes Are you a nonsmoker Tobacco use other than smoking: Question Answer Notes Are you an other tobacco user? No AUDIT-C (Standard) Question Answer Notes Did you have a drink contain ing alcohol in the past year? Yes How often did you have six o r more drinks on one occasion in the past year? Less than monthly (1 point) How many drinks did you have on a typical day when you were drinking in the past year? 3 or 4 drinks (1 point) How often did you have a dri nk containing alcohol in the past year? 2 to 3 times a week (3 points) Points 5 Interpretation Positive Problems Problem Type SNOMED Code ICD Code Onset Dates Problem Status W/U Status Risk Notes Problem Essential hypertension (97556641) Essential (primary) hypertension (I10) Active confirmed Problem Postcoital bleeding (07140649) Postcoital and contact bleeding (N93.0) Active confirmed Problem Long-term current use of anticoagulant (105773441) MCC (current) use of anticoagulants (Z79.01) Active confirmed Vital Signs Temperature 98.0 degrees Fahrenheit 08/08/2024 Blood pressure diastolic 78 mm Hg 08/08/2024 Height 67 in 08/08/2024 Blood pressure systolic 110 mm Hg 08/08/2024 Weight 166 lbs 08/08/2024 BMI 26 kg/m2 08/08/2024 Encounters Encounter Location Date Provider Diagnosis [facility] [address] [place] [address] 08/08/2024 STEVE SEALS Encounter for gynecological examination (general) (routine) without abnormal findings Z01.419 and Encounter for screening mammogram for malignant neoplasm of breast Z12.31 Assessments Encounter Date Diagnosis (ICD Code) Assessment Notes Treatment Notes Treatment Clinical Notes Section Notes 08/08/2024 Encounter for gynecological examination (general) (routine) without [...] to keep colon screening up to date. 08/08/2024 Encounter for screening mammogram for malignant neoplasm of breast (ICD-10 - Z12.31) Plan Of Treatment Pending Test Test Name Order Date MM Digital Screening Mammogram 3D 2019 MM Digital Screening Mammogram 3D 2021 MM Digital Screening Mammogram 3D 2023 Next Appt Details Provider Name:STEVE Ang, 08/15/2025 03:30:00 PM, [address], [address], [place], [address], Insurance Providers Payer Name Payer Address Payer Phone Subscriber Number Group Number Insured Name Patient Relationship to Insured Coverage Start Date Coverage End Date [employer] [place] [address] [place] [address] [phone] [id number] ZHANG CANAS Self - patient is the insured Medical (General) History Medical History History ICD Code Hypothyroidism, unspecified E03.9 Unspecified asthma with (acute) exacerba tion J45.901 Presence of coronary angioplasty implant and graft Z95.5 Pure hypercholesterolemia, unspecified E 78.00 Essential (primary) hypertension I10 Surgical History Surgery Date(Month/Year) Cardiac Stent 03/2018 Hospitalization History Reason Date(Month/Year) See Surgical HX 2 vaginal Deliveries
--- OUTSIDE RECORDS SUMMARY | 2025-02-11 08:58 | XMS_ITS ---
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 Annual JACQUARD FIXER Physical. 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 She has been in state of good health since her last exam. She has the following concerns:. She has received the [employer] Covid-19 vaccine. Relationship status: for nearly 26 [...] She exercises x days/week by . * ROS:?Annual Tractor Trailer Mechanic Exam ROS:?Bowel habit changes?denies.?Bladder symptoms?denies.?Vaginal discharge, unusual?denies.?Vaginal itch or odor?denies.?weight or appetite changes?denies.?Chest pains, SOB?denies.?depression?denies.?Breast:?Denies?Breast lump.?Denies?Nipple discharge.?Hematology:?Denies?Swollen glands.?Skin:?Patient denies?changing moles.?Psychiatric:?Denies?Anxiety.? * Medical History:? Objective: * Vitals:? * Examination: ???General Examination: ?GENERAL APPEARANCE:?in no acute distress, well developed, well nourished, industrial security analyst present in room.?HEAD:?normocephalic, atraumatic.?NECK/THYROID:?neck supple, full range of motion, thyroid normal.?LYMPH NODES:?no axillary or supraclavicular adenopathy.?SKIN:? normal, good turgor, no rashes, no suspicious lesions.?BREASTS:? normal, no dimpling, no discharge, no drainage, no masses palpable bilaterally, nontender.?ABDOMEN:? soft, non-tender, non distended without masses or hepatosplenomegay.?RECTAL:? normal tone, no masses palpable.?BACK:? no costovertebral angle tenderness.?FEMALE GENITOURINARY:?Vulva without lesions or masses, vagina pink without abnormal discharge, lesions or masses, cervix appears normal and is not tender to palpation, uterus is normal size, mobile, nontender and anteverted, ovaries are not palpable.?NEUROLOGIC:? alert and oriented, gait normal.?PSYCH:? alert, oriented, cognitive function intact, cooperative with exam, good eye contact, mood/affect full range, speech clear.? Assessment: * Assessment: 1.?Encounter for gynecologic al examination (general) (routine) without abnormal findings - Z01.419 (Primary)???2.?Encounter for screening mammogram for malignant neoplasm of breast - Z12.31???3.?Encounter for screening for infections with a predominantly sexual mode of transmission - Z11.3??? Plan: * Treatment: 2.?Encounter for screening m ammogram for malignant neoplasm of breast?Imaging: MM Digital Screening Mammogram 3D * Follow Up:?1 Year (Reason: Y early Tractor Trailer Mechanic Exam) * Images: Billing Information: * Visit Code:? 86644 Preventive Care Est Pt. Age 40-64. * Procedure Codes:? 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 She has been in state of [...] General Examination GENERAL APPEARANCE: in no ac allyssa distress, well developed, well nourished, industrial security analyst present in room HEAD: normocephalic, atrau matic [...]
--- OUTSIDE RECORDS SUMMARY | 2025-02-11 08:58 | XMS_ITS ---
Author Organization [facility] Address [address] [place] [address] Care Team Providers Care Police Liaison Name Role Phone OMKAR MANNING Primary Care Provider Unav ailable STEVE SEALS Unavailable [phone] REASON FOR VISIT Annual GROUP ROOMS COORDINATOR Physical Encounters Encounter Location Date Provider Diagnosis [facility] [facility] [address] [place] [address] 06/20/2024 STEVE SEALS Plan Of Treatment Next Appt Details Provider Name:STEVE Ang, 08/15/2025 03:30:00 PM, [address] [facility], [address], [place], [address], Progress Notes * ZHANG CANASDOB:1975 (49 yo F)Acc No.[id number]:06/20/2024 PROGRESS NOTES Patient:?ZHANG CANAS Provider:?STEVE SEALS MD :1975???Age:49 Y???Sex:Female D ate:06/20/2024 Address:[address] [place], [place] [address] Pcp:OMKAR MANNING Subjective: * Chief Complaints: * ???1. Annual GROUP ROOMS COORDINATOR Physical. * Medical History:? Objective: * Vitals:? Assessment: Plan: * Treatment: * Images: Billing Information: * Visit Code:? * Procedure Codes:? * Electronic signature of STEVE SEALS MD on 02/11/2025 at 08:57 AM EDT Sign off status: Pending * Provider:?STEVE SEALS MD Date:?2023 Generated for Rober orellana/Palmira/Merle on:?02/11/2025 08:57 AM EDT
--- OUTSIDE RECORDS SUMMARY | 2025-02-11 08:58 | XMS_ITS ---
Author Organization [employer] [facility] Address [address] [place] [address] Care Team Providers Care Slunk Skin Curer Name Role Phone OMKAR MANNING Primary Care Provider Unav ailable STEVE SEALS Unavailable [phone] Allergies No Known Allergies Results Component Value Reference Range Notes [id number] IGP No Culture 30 Plus Reviewed date:08/11/2024 02:03:48 PM Interpretation: Performing Lab:[facility] [place], [address], [address], [place], Phone - [phone], Director - [facility] Notes/Report: Clinical Information:[id number] LMP / Prev Treat...IFV=[id number];Cryo No. of containers..01 ThinPrep Vial DIAGNOSIS: NEGATIVE FOR INTRAEPITHELIAL LESION OR MALIGNANCY. FUNGAL ORGANISMS MORPHOLOGICALLY CONSISTENT WITH JESICA SPECIES ARE PRESENT. Specimen adequacy: Satisfactory for evaluation. Endocervical and/or squamous metaplastic cells (endocervical component) are present. Clinician provided ICD10: Z0 1.419 Performed by: Maryan maradiaga, Restaurant Team Member (ASCP) . . Note: The Pap smear [...] Report Reviewed date:08/11/2024 02:10:35 PM Interpretation: Performing Lab:[facility], [address], [address], [place], Phone - [phone], Director - Nathen Notes/Report: Clinical Information:[id number] LMP / Prev Treat...CEO=[id number];Cryo No. 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 Physical Medications Medication SIG (Take, Route, Frequency, Duration) Notes Start Date End Date Status Aspirin 81 81 MG as directed Orally 0 nce a day Active Dulera 100-5 MCG/ACT Inhalation for 60 Days Active Losartan Potassium 100 MG 1 tablet Orall y Once a day Active Atorvastatin Calcium 40 MG 1 tablet Oral ly Once a day Active Levothyroxine Sodium 25 MCG 1 tablet in the morning on an empty stomach Orally Once a day Active hydroCHLOROthiazide 25 MG 1 tablet in th e morning Orally Once a day Active Social History [...] week (3 points) Points 5 Interpretation Positive Vital Signs Temperature 98.0 degrees Fahrenheit 08/08/20 24 Blood pressure systolic 110 mm Hg 08/08/20 24 Blood pressure diastolic 78 mm Hg 024 Height 67 in 08/08/2024 Weight 166 lbs 08/08/2024 BMI 26 kg/m2 08/08/2024 Encounters Encounter Location Date Provider Diagnosis [address] [place] [address] 08/08/2024 STEVE SEALS Encounter for gynecological examination [...] breast (ICD-10 - Z12.31) Plan Of Treatment Treatment Notes Assessment Notes [...] Follow Up: 1 Year, Reason: Y early 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 She has been in state of good health since her last exam. She has the following concerns: some changes in her menstrual cycle - cycles now 23-30+ days. Last seen for PE in 12/2021. She has received the CIVICO Covid-19 vaccine. Relationship status: for nearly 26 years. She is sexually active. Sexual partner(s): male. She does not wish to have STI testing. Menses: 23-30+ days, lasting 5-7 days, moderate flow. No intermenstrual bleeding. Contraception: vasectomy She does not report vaginal dryness. She does sometimes have hot flashes/night sweats - tolerable. The patient has not had an abnormal pap smear within the last 5 years, but has a history of cryotherapy. Her most recent pap smear was 01/01/2020 - NIL, Neg HR HPV. Due now for cotesting. She has been diagnosed with breast cancer. She does not have a family history of breast cancer. Her last mammogram was April 21, 2024 - at [facility]. Normal, per patient. She does not have a family history of colon cancer. She a has not yet had a colonoscopy. She is due for a consult in September 2024 (she reports they keep changing the appointment). The patient does exercise. She exercises x 2 days/week by walking, playing pickleball. 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 admits,?constipation.?Bladder symptoms?denies.?Vaginal discharge, unusual?denies.?Vaginal itch or odor?denies.?weight or appetite changes?denies.?Chest pains, SOB?denies.?depression?denies.?Breast:?Denies?Breast lump.?Denies?Nipple discharge.?Hematology:?Denies?Swollen glands.?Skin:?Patient denies?changing moles.?Psychiatric:?Admits?Anxiety,?uses breathing and prayer, listens to music.? * Medical History:? * Job Training Supervisor History:?/ Para?2/2.?Sexual activity?currently sexually active, with men.?Last Pap Smear:?05/31/20 NIL, NEG HPV, 2019.?Mammogram:?04/21/2024 @ [facility], 2019.?Abnormal Pap Smear:?yes, prior to 2011 - she had a treatment with nitrogen (cryotherapy) in [place], with normal paps following (she reports a Class 2 or 3 pap).?LMP and menses?07/22/24.?History of STD's:?none.? Control:?vasectomy.?Menarche?12.?Colonoscopy?09/2024 Consult.?*Hep B Vac?yes.? * OB History:?Total pregnancies?2.?Total living children?2.?NVD?2.? # 1:?normal spontaneous vaginal delivery (), 11/22/1999, Tru, [id number], GDM - diet controlled.? # 2:?normal spontaneous vaginal delivery (), 03/20/2006, Roberta (girl), 6lb 2oz, GDM, preeclampsia, bedrest for nearly a month.? * Surgical History:?Cardiac St ent 03/2018 * Hospitalization/Major Diagno stic Procedure:?2 vaginal Deliveries See Surgical HX * Family History:?Mother: ld long 78 yrs, depression.?Father: 54 yrs, esophagus cancer.? Denies breast, colon, uterine or ovarian cancers. Brother - Donnell - 07/12/71 - well. * Social History:?Tobacco Use:?Tobacco Use/Smoking?Are you a?nonsmoker ?Tobacco use other than smoking?Are you an other tobacco user??No ???Drugs/Alcohol:?Drugs?Have you used drugs other than those for medical reasons in the past 12 months??No ???Miscellaneous:?Children: yes, 2. ?Domestic violence: no. ?Exercise: yes. ?Home smoke detector use: yes, smoke detectors, carbon monoxide detector. ?Housing: owns a home. ?Living with: spouse. ?Marital status: , Tru. 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 ?Pets: dogs: 1 mini ray doodle. ?Sexual abuse: no. ?Sexually active: no. ?Verbal abuse: no. ???Drug/Alcohol:?AUDIT-C (Standard)?Did you have a drink containing alcohol in the past year??Yes ?How often did you have six or more drinks on one occasion in the past year??Less than monthly (1 point) ?How many drinks did you have on a typical day when you were drinking in the past year??3 or 4 drinks (1 point) ?How often did you have a drink containing alcohol in the past year??2 to 3 times a week (3 points) ?Points?5 ?Interpretation?Positive * Medications:?TakingLevothyro xine Sodium 25 MCG Tablet 1 tablet in the morning on an empty stomach Orally Once a day Losartan Potassium 100 MG Tablet 1 tablet Orally Once a day Atorvastatin Calcium 40 MG Tablet 1 tablet Orally Once a day hydroCHLOROthiazide 25 MG Tablet 1 tablet in the morning Orally Once a day Aspirin 81 81 MG Tablet Delayed Release as directed Orally 0nce a day Dulera 100-5 MCG/ACT Aerosol Inhalation Taking Levothyroxine Sodium 25 MCG Tablet 1 tablet in the morning on an empty stomach Orally Once a day Taking Losartan Potassium 100 MG Tablet 1 tablet Orally Once a day Taking Atorvastatin Calcium 40 MG Tablet 1 tablet Orally Once a day Taking hydroCHLOROthiazide 25 MG Tablet 1 tablet in the morning Orally Once a day Taking Aspirin 81 81 MG Tablet Delayed Release as directed Orally 0nce a day Taking Dulera 100-5 MCG/ACT Aerosol Inhalation DiscontinuedClopidogrel Bisulfate 25 MG 1 tablet Orally Once a day Medication List reviewed and reconciled with the patientDiscontinued Clopidogrel Bisulfate 25 MG 1 tablet Orally Once a day Medication List reviewed and reconciled with the patient * Allergies:?N.K.D.A.no[Allerg ies Verified] Objective: * Vitals:?Ht: 67 in, Wt:166lbs , BMI:26Index, BP:110/78mm Hg, Temp:98.0F. * Examination: ???General Examination: ?GENERAL APPEARANCE:?in no acute distress, well developed, well nourished, box stacker present in room.?HEAD:?normocephalic, atraumatic.?NECK/THYROID:?neck supple, full range of motion, thyroid normal.?LYMPH NODES:?no axillary or supraclavicular adenopathy.?SKIN:? normal, good turgor, no rashes, no suspicious lesions.?BREASTS:? normal, no dimpling, no discharge, no drainage, no masses palpable bilaterally, nontender.?ABDOMEN:? soft, non-tender, non distended without masses or hepatosplenomegay.?RECTAL:?deferred at patient request.?BACK:? no costovertebral angle tenderness.?FEMALE GENITOURINARY:?Vulva without lesions or masses, vagina pink without abnormal discharge, lesions or masses, cervix appears normal with nabothian cyst and is not tender to palpation, uterus is upper limits normal size, mobile, nontender and retroverted, ovaries are not palpable.?NEUROLOGIC:? alert and oriented, gait normal.?PSYCH:? alert, oriented, cognitive function intact, cooperative with exam, good eye contact, mood/affect full range, speech clear.? Assessment: * Assessment: 1.?Encounter for gynecologic al examination (general) (routine) without abnormal findings - Z01.419 (Primary)???2.?Encounter for screening mammogram for malignant neoplasm of breast - Z12.31??? Plan: * Treatment: ? Value Reference Range ?. . - * ?HPV Aptima Negative Negative - * This lab was reviewed by TIGIST SEALS on 08/11/2024 at 14:03 PM EDT Notes: During the visit, the following areas of [...] to keep colon screening up to date. ??2.?Encounter for screening mammogram for malignant neoplasm of breast?Imaging: MM Digital Screening Mammogram 3D * Procedure Codes:? * Preventive Medicine:?101 Nights of Great Sex ~~~~~~~~~~~~~ STRENGTH TRAINING ~~~~~~~~~~~~~ Anyone, at any fitness level, can and should add strength training to their routine. Strength training is an important part of an overall fitness program, mainly because lean muscle mass naturally diminishes with age. You'll increase the percentage of fat in your body if you don't do anything to replace the lean muscle you lose over time. Strength training can help you preserve and enhance your muscle mass (at any age!), develop strong bones and reduce the risk of osteoporosis, manage or lose weight and increase your metabolism to help you burn more calories. It will also improve your ability to do everyday activities and reduce symptoms of chronic conditions such as arthritis, back pain, obesity, heart disease and diabetes. Some research suggests that regular strength training may help improve thinking and learning skills. Don't be intimidated. You can strength train at home or in the gym, and you have plenty of options. You can rely on your body weight and do many exercises with little or no equipment, like pushups, pullups, planks and leg squats. Or you can go pro and choose to go with resistance tubing (a lightweight tubing that provides resistance when stretched), free weights like barbells and dumbbells, or weight machines at the gym. ~~~~~~~~~~~~~~~~~~~~~~~~~~~~~~~~~~~~~~~~~~~ SARCOPENIA AND THE IMPORTANCE OF STRENGTH TRAINING EXERCISE ~~~~~~~~~~~~~~~~~~~~~~~~~~~~~~~~~~~~~~~~~~~ What is sarcopenia? ~~~~~~~~~~~~ Sarcopenia refers to the process of losing skeletal muscle mass and strength. 'Sarco' is the Stateless word referring to flesh, and 'penia' means a reduction in amount. Thus, the word describes a progressive weakening of the body caused by a 'change in body compensation in favor of fat and at the expense of muscle.' Everyone, beginning around age 25, starts to lose muscle mass, though the actual symptoms of this loss do not usually begin showing up until around the age of 40 or so. The process begins really picking up speed after the age of 65. In fact, around the age of 40, most women will lose almost a half-pound of muscle every year and replace it with fat. The result of this gradual loss of muscle is an insidious weakening of the body, loss of balance, loss of confidence upon walking, and a reduced ability to recover from near falls. As we lose strength, we become more inactive. This makes sense, because if we have less muscle, it takes much more effort to move, and we fatigue more easily. But also, with loss of strength comes loss of balance and stability. The fear of falling keeps many people sedentary, and a sedentary lifestyle opens the door for chronic illness. ~~~~~~~~~~~~~~ Take back your muscle ~~~~~~~~~~~~~~ And now for great news: you can delay sarcopenia and even reverse it. How? By lifting weights. Even though you cannot grow new muscles cells to replace the ones you have already lost, you can develop the ones that you have left. In fact, you can become stronger than you ever have in your life by simply beginning a strength training program. No matter how old you are, it is not too late to start. Even patients in nursing homes have seen transformation. After strength training, bedridden patients were able to begin walking with walkers, walker-dependent patients graduated to canes, and so on. And no matter how young you are, it is not too early to start! By starting early, you can significantly delay the effects of sarcopenia. As you begin lifting weights, you will notice a transformation in your body. You will have more energy, you will perform everyday tasks with noticeably more ease and your clothes will begin sagging on you, because you will be building muscle and burning up the fat deposits. You will have greater balance and more confidence. And perhaps best of all is the insurance policy you pay premiums on every time you choose to lift, because you are laying a strong, solid foundation for your later years. You are laying up health, independence and the ability to live well, not just long. DON'T LET ANOTHER DAY GO BY THAT YOU ARE LOSING MUSCLE. Take it back, and get ready to feel better than you ever have! ~~~~~~~~~~~~~~ CONSTIPATION DIET ~~~~~~~~~~~~~~ Avoid or limit BRAT diet B - bananas R - rice (white starches) A - apples T - toast (white starches) Good things - Whole grains Fiber - metamucil P fruits - peaches, plums, prunes, pineapple Melons Berries ~~~~~~~~~~~~~~ CONSTIPATION CARE ~~~~~~~~~~~~~~ Constipation means that you have a hard time passing stools (bowel movements). People pass stools from 3 times a day to once every 3 days. What is normal for you may be different. Constipation may occur with pain in the rectum and cramping. This pain may get worse when you try to pass stools. Sometimes there are small amounts of bright red blood on toilet paper or the surface of stools. This is because of enlarged veins near the rectum (hemorrhoids). A few changes in your diet (see above) and lifestyle may help you avoid ongoing constipation. Your doctor may also prescribe medicine to help loosen your stool. Some medicines can cause constipation. These include pain medicines and antidepressants. Tell your doctor about all the medicines you take. Your doctor may want to make a medicine change to ease your symptoms. Follow-up care is a phillips part of your treatment and safety. Be sure to make and go to all appointments, and call your doctor if you are having problems. It's also a good idea to know your test results and keep a list of medicines you take. ~~~~~~~~~~~~~~~~~~~~~~~~~ How can you care for yourself at home? ~~~~~~~~~~~~~~~~~~~~~~~~~ 1. Drink plenty of fluids, enough so that your urine is light yellow or clear like water. If you have kidney, heart, or liver disease and have to limit fluids, talk with your doctor before you increase the amount of fluids you drink. 2. Include high-fiber foods in your diet each day. These include fruits, vegetables, beans, and whole grains. 3. Get at least 30 minutes of exercise on most days of the week. Walking is a good choice. You also may want to do other activities, such as running, swimming, cycling, or playing tennis or team sports. 4. Take a fiber supplement, such as Citrucel or Metamucil, every day. Start with a small dose and very slowly increase the dose over a month or more. 5. Schedule time each day for a bowel movement. A daily routine may help. Take your time having your bowel movement. 6. Support your feet with a small step stool when you sit on the toilet. This helps flex your hips and places your pelvis in a squatting position. 7. Your doctor may recommend an eqlo-vfs-fowgvxz laxative to relieve your constipation. Examples are Milk of Magnesia and MiraLax. Read and follow all instructions on the label. Do not use laxatives on a long-term basis. ~~~~~~~~~~~~~~~~~~~ When should you call for help? ~~~~~~~~~~~~~~~~~~~ Call your doctor now or seek immediate medical care if: - You have new or worse belly pain. - You have new or worse nausea or vomiting. - You have blood in your stools. Watch closely for changes in your health, and be sure to contact your doctor if: - Your constipation is getting worse. - You do not get better as expected. 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 88046 Preventive Care Est Pt. Age 40-64. * Procedure Codes:? 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 She has been in state of good health since her last exam. She has the following concerns: some changes in her menstrual cycle - cycles now 23-30+ days. Last seen for PE in 12/2021. She has received the CIVICO Covid-19 vaccine. Relationship status: for nearly 26 years. She is sexually active. Sexual partner(s): male. She does not wish to have STI testing. Menses: 23-30+ days, lasting 5-7 days, moderate flow. No intermenstrual bleeding. Contraception: vasectomy She does not report vaginal dryness. She does sometimes have hot flashes/night sweats - tolerable. The patient has not had an abnormal pap smear within the last 5 years, but has a history of cryotherapy. Her most recent pap smear was 01/01/2020 - NIL, Neg HR HPV. Due now for cotesting. She has been diagnosed with breast cancer. She does not have a family history of breast cancer. Her last mammogram was April 21, 2024 - at [facility]. Normal, per patient. She does not have a family history of colon cancer. She a has not yet had a colonoscopy. She is due for a consult in September 2024 (she reports they keep changing the appointment). The patient does exercise. She exercises x 2 days/week by walking, playing pickleball. Examination Category Sub-Category Detail Notes Category Not es General Examination GENERAL APPEARANCE: in no ac allyssa distress, well developed, well nourished, box stacker present in room HEAD: normocephalic, atrau matic [...] no axillary or supra clavicular adenopathy RECTAL: deferred at patient request PSYCH: alert, oriented, cog nitive function intact, cooperative with exam, good eye contact, mood/affect full range, speech clear FEMALE GENITOURINARY: Vulva without lesi ons or masses, vagina pink without abnormal discharge, lesions or masses, cervix appears normal with nabothian cyst and is not tender to palpation, uterus is upper limits normal size, mobile, nontender and retroverted, ovaries are not palpable
[2025-02-11 10:13] LABS: Alanine Aminotransferase 21 U/L (0-31); Albumin Level 4.4 g/dL (3.5-5.0); Alkaline Phosphatase 59 U/L (39-117); Anion Gap 13 (12-20); Aspartate Amino Transferase 25 U/L (5-31); Bilirubin Total 0.4 mg/dL (0.0-1.0); Blood Urea Nitrogen 26 mg/dL (9-16); Calcium 9.7 mg/dL (8.4-10.2); Carbon Dioxide 29 mmol/L (22-29); Chloride 101 mmol/L (96-108); Cholesterol 140 mg/dL (<200); Estimated Glomerular Filt Rate 51; Glucose Random 100 mg/dL (60-115); HDL Cholesterol 63 mg/dL (>40); LDL Cholesterol Calculated 62 mg/dL (<100); Potassium 3.3 mmol/L (3.3-5.1); Sodium 140 mmol/L (135-145); Total Protein 7.9 g/dL (6.5-8.0); Triglycerides 79 mg/dL (<150)
[2025-02-11 10:28] LABS: TSH reflex Free T4 0.19 uIU/mL (0.32-4.0); Vitamin D 25-OH Total 28.1 ng/mL (>30)
[2025-02-11 10:51] LABS: Reflex LDLD? No
[2025-02-11 11:23] LABS: Free T4 (Free Thyroxine) 1.26 ng/dL (0.71-1.85)
== END 2025-02-11 08:56 | disposition home or self-care (01) ==
LOC: HO.LAB 08:55
PROVIDERS: PCP Internal Medicine; Visit Provider Internal Medicine
DX: Z00.00 Encounter for general adult medical examination without abnormal findings (principal); N91.5 Oligomenorrhea, unspecified
CPT/HCPCS: 36415; 80053; 80061; 82306; 84439; 84443

== ENCOUNTER 2025-04-13 11:25 | Outpatient (REF) | payer BC, SELFPAY ==
--- OUTSIDE RECORDS SUMMARY | 2025-04-13 13:38 | XMS_ITS ---
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 Physical Encounters Encounter Location Date Provider Diagnosis [facility] [employer] [address] [place] [address] 06/20/2024 STEVE SEALS Plan Of Treatment Next Appt Details Provider Name:STEVE Ang, 08/15/2025 03:30:00 PM, [address] [facility], [address], [place], [address], Progress Notes * ZHANG CANASDOB:1975 (49 yo F)Acc No.[id number]:06/20/2024 PROGRESS NOTES Patient:?ZHANG CANAS Provider:?STEVE SEALS MD :1975???Age:49 Y???Sex:Female D ate:06/20/2024 Address:[address] [place], [place] [id number] Pcp:OMKAR MANNING Subjective: * Chief Complaints: * ???1. 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 * Medical History:? Objective: * Vitals:? Assessment: Plan: * Treatment: * Images: Billing Information: * Visit Code:? * Procedure Codes:? * Electronic signature of STEVE SEALS MD on 04/13/2025 at 01:38 PM EDT Sign off status: Pending * Provider:?STEVE SEALS MD Date:?2023 Generated for Rober orellana/Palmira/Merle on:?04/13/2025 01:38 PM EDT
[2025-04-13 13:40] LABS: Basophils Percent Auto 1.3 % (0-2); Eosinophils Absolute Auto 0.5 X10*3/uL (0.0-0.4); Eosinophils Percent Auto 14.8 % (0-4); Hematocrit 35.7 % (37.0-47.0); Hemoglobin 11.3 g/dl (12.0-16.0); Lymphocytes Absolute Auto 1.3 X10*3/uL (1.2-4.9); Lymphocytes Percent Auto 43.3 % (20-40); MANUAL DIFF FLAG SCAN; Mean Corpuscular HGB Conc 31.7 g/dl (31.0-35.0); Mean Corpuscular Hemoglobin 24.5 pg (27.0-33.0); Mean Corpuscular Volume 77.3 fL (80.0-98.0); Mean Platelet Volume 10.8 fL (9.4-12.3); Monocytes Absolute Auto 0.4 X10*3/uL (0.1-1.2); Monocytes Percent Auto 13.4 % (2-11); Neutrophils Absolute Auto 0.8 x10*3/uL (2.0-8.3); Neutrophils Percent Auto 27.2 % (45-73); Platelet Count 269 X10*3/uL (160-400); Red Blood Count 4.62 X10*6/uL (4.20-5.50); Red Cell Distribution Width 17.5 % (11.0-16.0); SCAN SMEAR FLAG 1; White Blood Count 3.1 X10*3/uL (4.8-10.8)
[2025-04-13 13:59] LABS: SLIDE REVIEW VERIFIED
[2025-04-13 15:07] LABS: Ferritin 74 ng/mL (10-250); T4 Thyroxine 13.1 ug/dL (4.5-12.0); Thyroid Stimulating Hormone 0.36 uIU/mL (0.32-4.0)
[2025-04-14 05:29] LABS: Triiodothyronine T3 Free 2.8 pg/mL (2.3-4.2); Triiodothyronine T3 Total 95 ng/dL (76-181)
== END 2025-04-13 11:26 | disposition home or self-care (01) ==
LOC: HO.HHCL 11:25
PROVIDERS: Visit Provider Internal Medicine
DX: N93.8 Other specified abnormal uterine and vaginal bleeding (principal); E03.9 Hypothyroidism, unspecified
CPT/HCPCS: 36415; 82728; 84436; 84439; 84443; 84480; 84481; 85025

== ENCOUNTER 2025-05-04 10:24 | Outpatient (REF) | payer BC, SELFPAY ==
--- OUTSIDE RECORDS SUMMARY | 2024-06-20 09:50 | XMS_ITS ---
Author Organization [employer] Address [address] [place] [address] Care Team Providers Care Tombstone Polisher Name Role Phone OMKAR MANNING Primary Care Provider Unav ailable STEVE SEALS Unavailable [phone] REASON FOR VISIT Annual BAGGAGE AGENT Physical Encounters Encounter Location Date Provider Diagnosis [facility] [address] [facility] mentor | [facility] [address] [place] [address] 06/20/2024 STEVE SEALS Plan Of Treatment Next Appt Details Provider Name:STEVE Ang, 08/15/2025 03:30:00 PM, [address] [facility], [address], [place], [address], Progress Notes * ZHANG CANASDOB:1975 (49 yo F)Acc No.[id number]:06/20/2024 PROGRESS NOTES Patient: ZHANG BRUNNER Provider: Waylon SEALS MD :1975 A ge:49 Y S ex:Female Date:06/20/2024 Address:[address] [place], [place] [id number] Pcp:OMKAR MANNING Subjective: * Chief Complaints: * 1 . Annual BAGGAGE AGENT Physical. * Medical History: Objective: * Vitals: Assessment: Plan: * Treatment: * Images: Billing Information: * Visit Code: * Procedure Codes: * Electronic signature of STEVE SEALS MD on 05/04/2025 at 12:04 PM EDT Sign off status: Pending * Provider: Waylon SEALS MD Date: 0 06/20/2024 Generated for Rober orellana/Palmira/Kinzaitting on: 0 05/04/2025 12:04 PM EDT"
--- NOTE | ~2025-05-04 | US_ITS ---
CLINICAL HISTORY: Upper abdomen and left quadrant pain US abdomen complete Comparison: None Provided Findings: Gallbladder unremarkable, no stone formation or wall thickening. Common duct measures 2 mm. No sonographic Schmitt sign. Liver is homogeneous and normal in size and echogenicity. Main portal vein patent with normal direction of flow. Pancreas is unremarkable. Aorta and IVC patent and normal in caliber. The right kidney is normal, 12.0 cm in length. No focal abnormality or hydronephrosis. 6.1 cm septated cyst. The left kidney is normal, 12.7 cm in length. No focal abnormality or hydronephrosis. 8.1 x 7.4 cm septated cyst. The spleen is normal, 9.1 cm in length. No focal abnormality. Impression: Large bilateral septated renal cysts Otherwise unremarkable This document has been electronically signed by: Umang Nolen MD on 05/04/2025 19:48:57
== END 2025-05-04 10:25 | disposition home or self-care (01) ==
LOC: HO.US 10:24
PROVIDERS: PCP Internal Medicine; Visit Provider Internal Medicine
DX: R10.10 Upper abdominal pain, unspecified (principal)
CPT/HCPCS: 76700

== ENCOUNTER → 2025-05-04 10:29 | Outpatient (BNV) | payer BC, SELFPAY | PROVIDERS: PCP Internal Medicine; Visit Provider Radiology Diagnostic Radiology | DX: N28.1 Cyst of kidney, acquired (principal) | CPT/HCPCS: 76700 ==

== ENCOUNTER 2025-06-02 14:12 | Outpatient (REF) | payer BC, SELFPAY ==
--- OUTSIDE RECORDS SUMMARY | 2025-06-02 14:15 | XMS_ITS | Patient Health Record ---
Author Organization [employer] [facility] Address [address] [place] [address] Care Team Providers Care Coal Tower Operator Name Role Phone OMKAR MANNING Primary Care Provider Unav ailable STEVE SEALS Unavailable [phone] Allergies No Known Allergies Results Component Value Reference Range Notes [id number] IGP No Culture 30 Plus Reviewed date:08/11/2024 02:03:48 PM Interpretation: Performing Lab:[facility], Marylou [address], [address], [place], Phone - [phone], Director - [facility] Notes/Report: Clinical Information:[id number] LMP / Prev Treat...SXZ=[id number];Cryo No. of containers..01 ThinPrep Vial DIAGNOSIS: NEGATIVE FOR INTRAEPITHELIAL LESION OR MALIGNANCY. FUNGAL ORGANISMS MORPHOLOGICALLY CONSISTENT WITH JESICA SPECIES ARE PRESENT. Specimen adequacy: Satisfactory for evaluation. Endocervical and/or squamous metaplastic cells (endocervical component) are present. Clinician provided ICD10: Z0 1.419 Performed by: Maryan maradiaga, Electric Motor Controls Assembler (ASCP) . . Note: The Pap smear [...] Report Reviewed date:08/11/2024 02:10:35 PM Interpretation: Performing Lab:Svetlana Hart, Marylou [address]bar, [address], [place], Phone - [phone], Director - [facility] Notes/Report: Clinical Information:[id number] LMP / Prev Treat...GZQ=[id number];Cryo No. of containers..01 ThinPrep Vial Reason For Referral No Information Medications Medication SIG (Take, Route, Frequency, Duration) Notes Start Date End Date Status Aspirin 81 81 MG as directed Orally 0 nce a day Active Dulera 100-5 MCG/ACT Inhalation; Duratio n: 60 Days Active hydroCHLOROthiazide 25 MG 1 [...] W/U Status Risk Notes Problem Essential hypertension (05796172) Essential (primary) hypertension (I10) Active confirmed Problem Postcoital bleeding (12597729) Postcoital and contact bleeding (N93.0) Active confirmed Problem Long-term current use of anticoagulant (018876752) [facility] (current) use of anticoagulants (Z79.01) Active confirmed Vital Signs Temperature 98.0 degrees Fahrenheit 08/08/2024 Blood pressure diastolic 78 mm Hg 08/08/2024 Height 67 in 08/08/2024 Blood pressure systolic 110 mm Hg 08/08/2024 Weight 166 lbs 08/08/2024 BMI 26 kg/m2 08/08/2024 Encounters Encounter Location Date Provider Diagnosis Total [facility] [address] [place] [address] 08/08/2024 STEVE SEALS Encounter for gynecological examination [...] Provider Name:STEVE Ang, 08/15/2025 03:30:00 PM, [address], [address], [place], [address], Insurance Providers Payer Name Payer Address Payer Phone Subscriber Number Group Number Insured Name Patient Relationship to Insured Coverage Start Date Coverage End Date [employer] [place] [address] [place] [address] [id number] ZHANG CANAS Self - patient is the [...]
== END 2025-06-02 14:13 | disposition home or self-care (01) ==
LOC: HO.MAMMO 14:12
PROVIDERS: PCP Internal Medicine; Visit Provider Internal Medicine
DX: Z12.31 Encounter for screening mammogram for malignant neoplasm of breast (principal)
CPT/HCPCS: 77063; 77067

== ENCOUNTER → 2025-06-02 14:15 | Outpatient (BNV) | payer BC, SELFPAY | PROVIDERS: PCP Internal Medicine; Visit Provider Internal Medicine | DX: Z12.31 Encounter for screening mammogram for malignant neoplasm of breast (principal) | CPT/HCPCS: 77063; 77067 ==

== ENCOUNTER 2025-07-20 12:19 | Outpatient (REF) | payer BC, SELFPAY ==
--- OUTSIDE RECORDS SUMMARY | 2024-04-15 11:00 | XMS_ITS ---
Author Organization [facility] [employer] Address [address] [place] [address] Care Team Providers Care Road Mender Name Role Phone OMKAR MANNING Primary Care Provider Unav ailable STEVE SEALS Unavailable [phone] REASON FOR VISIT Annual CERT PHARMACY TECH Physical Encounters Encounter Location Date Provider Diagnosis [facility] [address] [facility] [address] [place] [address] 04/15/2024 STEVE SEALS Plan Of Treatment Next Appt Details Provider Name:STEVE Ang, 08/15/2025 03:30:00 PM, [address] [facility], [address], [place], [address], Progress Notes * ZHANG CANASDOB:1975 (50 yo F)Acc No.[id number]:04/15/2024 PROGRESS NOTES Patient: ZHANG BRUNNER Provider: Waylon SEALS MD :1975 A ge:48 Y S ex:Female Date:04/15/2024 Address:[address] [place], [place] [id number] Pcp:OMKAR MANNING Subjective: * Chief Complaints: * 1 . Annual CERT PHARMACY TECH Physical. * Medical History: Objective: * Vitals: Assessment: Plan: * Treatment: * Images: Billing Information: * Visit Code: * Procedure Codes: * Electronic signature of STEVE SEALS MD on 07/20/2025 at 04:30 PM EDT Sign off status: Pending * Provider: Waylon SEALS MD Date: 0 04/15/2024 Generated for Rober orellana/Palmira/Kinzaitting on: 0 07/20/2025 04:30 PM EDT
--- OUTSIDE RECORDS SUMMARY | 2024-04-15 11:00 | XMS_ITS ---
Author Organization [facility] Address [address] [facility] [address] [place] [address] Care Team Providers Care Public Administration Professor Name Role Phone OMKAR MANNING Primary Care Provider Unav ailable STEVE SEALS Unavailable [phone] REASON FOR VISIT Annual DIRECTOR RECREATION Physical Encounters Encounter Location Date Provider Diagnosis [facility] [place] [address] 04/15/2024 STEVE SEALS Encounter for gynecological examination [...] Follow Up: 1 Year, Reason: Y early Crtts Exam Provider Name:STEVE Waylon Ang, 08/15/2025 03:30:00 PM, [address], [address], [place], [address], Progress Notes * ZHANG CANASDOB:1975 (50 yo F)Acc No.[id number]:04/15/2024 PROGRESS NOTES Patient: ZHANG BRUNNER Provider: Waylon SEALS MD :1975 A ge:48 Y S ex:Female Date:04/15/2024 Address:[address] [place], [place] [id number] Pcp:OMKAR MANNING Subjective: * Chief Complaints: * 1 . Annual DIRECTOR RECREATION Physical. 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 She has been in state of [...] days/week by . * ROS: A nnual Crtts Exam ROS: Bowel habit changes d enies. [...] no acute distress, well developed, well nourished, art history instructor present in room. HEAD: n ormocephalic, atraumatic. [...] * Follow Up: 1 Year (Reason: Yearly Crtts Exam) * Images: Billing Information: * Visit Code: 48297 Preventive Care Est Pt. Age 40-64. 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 She has been in state of good health since her last exam. She has the following concerns:. She has received the [employer] Covid-19 vaccine. 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
--- OUTSIDE RECORDS SUMMARY | 2024-06-20 09:50 | XMS_ITS ---
Author Organization [facility] [employer] Address [address] [place] [address] Care Team Providers Care Street Commissioner Name Role Phone OMKAR MANNING Primary Care Provider Unav ailable STEVE SEALS Unavailable [phone] REASON FOR VISIT Annual HAT PARTS CUTTER MACHINE Physical Encounters Encounter Location Date Provider Diagnosis [facility] [address] [facility] [address] [place] [address] 06/20/2024 STEVE SEALS Plan Of Treatment Next Appt Details Provider Name:STEVE Ang, 08/15/2025 03:30:00 PM, [address] [facility], [address], [place], [address], Progress Notes * ZHANG CANASDOB:1975 (50 yo F)Acc No.[id number]:06/20/2024 PROGRESS NOTES Patient: ZHANG BRUNNER Provider: Waylon SEALS MD :1975 A ge:49 Y S ex:Female Date:06/20/2024 Address:[address] [place], [place] [id number] Pcp:OMKAR MANNING Subjective: * Chief Complaints: * 1 . Annual HAT PARTS CUTTER MACHINE Physical. * Medical History: Objective: * Vitals: Assessment: Plan: * Treatment: * Images: Billing Information: * Visit Code: * Procedure Codes: * Electronic signature of STEVE SEALS MD on 07/20/2025 at 04:30 PM EDT Sign off status: Pending * Provider: Waylon SEALS MD Date: 0 06/20/2024 Generated for Rober orellana/Palmira/Kinzaitting on: 0 07/20/2025 04:30 PM EDT
--- NOTE | ~2025-07-20 | MM_ITS ---
EXAMINATION: MM DIAGNOSTIC DIGITAL BREAST TOMOSYNTHESIS, BILATERAL Bilateral Limited ultrasound. CLINICAL INFORMATION: [Call back from screening for prominent left axillary lymph nodes and right asymmetry superior breast on MLO view. COMPARISON: Mammography: Comparison is made with relevant prior exams. TECHNIQUE: Digital breast mammography with tomosynthesis is performed in both the craniocaudal and mediolateral oblique views along with computer-aided detection (CAD). FINDINGS: The breasts are heterogeneously dense, which may obscure small masses (ACR BI-RADS breast composition Category c). Right: Asymmetry in the superior right breast on MLO view partially effaces on additional imaging projections. No suspicious calcifications or other abnormal findings. Targeted color Doppler ultrasound scanning in the right breast from 10-1 o'clock demonstrates normal fibronodular breast tissue. There is an incidental simple cyst at 11:00 4 cm from the nipple measuring 4 x 4 x 3 mm. Left: Targeted color Doppler ultrasound in the left axilla demonstrates 2 normal-appearing axillary lymph nodes with normal to slightly prominent cortices. Otherwise there is no suspicious abnormal finding. Results are provided to the patient at time of visit by the technologist. MM/MM tomosynthesis diagnostic BI IMPRESSION: Right: 1. Asymmetry superior breast on MLO view which partially effaces and without sonographic correlate. Recommend 6 month follow-up for further evaluation of stability. 2. Simple cysts on ultrasound. Benign. Left: Slightly prominent left axillary lymph nodes. Recommend 6 month follow-up ultrasound for further evaluation of stability. ASSESSMENT: BI-RADS BI-RADS 3 - Probably benign finding(s) - 6 month follow-up suggested RECOMMENDATION: 6 Month F/U This patient's information was entered into a reminder system with a target due date for their next mammogram. Electronically signed by: Mehreen Pennington DO 07/20/2025 01:13 PM EDT
--- OUTSIDE RECORDS SUMMARY | 2025-07-20 16:31 | XMS_ITS | Encounter Summary ---
Author Organization [employer] Address [address] [facility] 7 [place] [address] Care Team Providers Care Boilermaker Central Steam Plant Name Role Phone Cora Deleon MD Primary Care Provider + Reason for Visit * Reason Onset Date Comments Med Refill 12/29/2023 Encounter Details Date Type Department Care Team ([facility] Contact Info) Description 12/29/2023 Telephone [facility] MEDICINE [address] [place], [place] [phone] Cora Deleon MD 230 [place] [address] Med Refill Social History Tobacco Use Types Packs/Day Years Used Date Smoking Tobacco: Never Passive Smoke Exposure: Never Smokeless Tobacco: Never Depression Answer Date Recorded Patient Health Questionnaire-9 Score 0 02/09/2023 Housing Stability Answer Date Recorded What is your housing situation today? I have eric stallings 08/26/[address] you li ve. Do you have problems with any of the following? None of the above 08/26/2023 Food Insecurity Answer Date Recorded Within the past 12 months, y ou worried that your food would run out before you got money to buy more: Never True 08/26/2023 Within the past 12 months,th e food you bought just didn't last and you didn't have enough money to get more: Never True Transportation Answer Date Recorded In the past 12 months, has l ack of transportation kept you from medical appts, meetings, work or from getting things needed for daily living? No 08/26/2023 Utilities Answer Date Recorded In the past 12 months, has t he [employer], gas, oil or water company threatened to shut off services in your home? No 08/26/2023 Depression Answer Date Recorded Patient Health Questionnaire-2 Score 0 02/09/2023 Comments Unknown Sex and Gender Information Value Date Recorded Sex Assigned at Female 09/08/2022 10:34 AM EDT Legal Sex Female 10:34 AM EDT Gender Identity Female 09/08/2022 10:34 AM EDT Sexual Orientation Straight 09/08/2022 10 :34 AM EDT documented as of this encounter Miscellaneous Notes * Telephone Encounter - Lakesha Rooney LPN - 12/29/2023 1:04 PM EST Medication pended to PCP. * Telephone Encounter - Gwendolyn Harley - 12/29/2023 1:00 PM EST TC from pt requesting medication refill. Medications needing refill : levothyroxine (Synthroid, Levoxyl) 125 MCG tablet To be sent to: [id number] [place], [place] - [address] [place] [address] documented in this encounter Plan of Treatment Not on file documented as of this encounter Visit Diagnoses Not on filedocumented in this encounter Additional Health Concerns Assessment Noted Time PHQ-9 Depression Total Score: 0 02/10/20 23 4:03 PM EDT documented as of this encounter Care Teams Boilermaker Central Steam Plant Relationship Specialty Start Date End Date Cora Deleon MD [address] [place] [address] PCP - General Family Medicine 06/28/18 documented as of this encounter
--- OUTSIDE RECORDS SUMMARY | 2025-07-20 16:31 | XMS_ITS | Encounter Summary ---
Author Organization [employer] Address [address] [facility] 7t [place] [address] Care Team Providers Care Brain Wave Technician Name Role Phone Cora Deleon MD Primary Care Provider + Reason for Visit * Reason Comments Med Refill Encounter Details Date Type Department Care Team ([facility] st Contact Info) Description 06/14/2025 Refill [facility] [address] [place], [place] [phone] Cora Deleon MD 230 [place] [address] Social History Tobacco Use Types Packs/Day Years Used Date Smoking Tobacco: Never Passive Smoke Exposure: Never Smokeless Tobacco: Never Alcohol Use Standard Drinks/Week Comments Yes 0 (1 standard drink = 0.6 oz pur e alcohol) social Depression Answer Date Recorded Patient Health Questionnaire-9 Score 0 02/09/2023 Housing Stability Answer Date Recorded What is your housing situation today? I have eric stallings 05/11/[address] you li ve. Do you have problems with any of the following? None of the above 05/11/2024 Food Insecurity Answer Date Recorded Within the past 12 months, y ou worried that your food would run out before you got money to buy more: Never True 05/11/2024 Within the past 12 months,th e food you bought just didn't last and you didn't have enough money to get more: Never True 01/2024 Transportation Answer Date Recorded In the past 12 months, has l ack of transportation kept you from medical appts, meetings, work or from getting things needed for daily living? No 05/11/2024 Utilities Answer Date Recorded In the past 12 months, has t he electric, gas, oil or water company threatened to shut off services in your home? No 05/11/2024 Depression Answer Date Recorded Patient Health Questionnaire-2 Score 0 05/19/2024 Internet Access Answer Date Recorded Internet Access Q1 Yes 07/11/2024 Internet Access Q2 Not on file 07/11/2024 Comments No Sex and Gender Information Value Date Recorded Sex Assigned at Female 09/08/2022 10:34 AM EDT Legal Sex Female 10:34 AM EDT Gender Identity Female 09/08/2022 10:34 AM EDT Sexual Orientation Straight 09/08/2022 10 :34 AM EDT documented as of this encounter Plan of Treatment Not on file documented as of this encounter Visit Diagnoses Not on filedocumented in this encounter Additional Health Concerns Assessment Noted Time PHQ-9 Depression Total Score: 0 02/10/20 23 4:03 PM EDT documented as of this encounter Care Teams Brain Wave Technician Relationship Specialty Start Date End Date Cora Deleon MD [address] [place] [address] PCP - General Family Medicine 06/28/18 documented as of this encounter
--- OUTSIDE RECORDS SUMMARY | 2025-07-20 16:31 | XMS_ITS | Encounter Summary ---
Author Organization [employer] Address [address] [facility] 7t [place] [address] Care Team Providers Care Script Editor Name Role Phone Cora Deleon MD Primary Care Provider + Encounter Details Date Type Department Care Team (Late st Contact Info) Description 12/12/2024 Orders Only [facility] MEDICINE [address] [place] [address] Provider, MD [place] Social History Tobacco Use Types Packs/Day Years [...] on file documented as of this encounter Procedures Procedure Name Priority Date/Time Associated Diagnosis Comments HM PAP/HPV Routine 05/31/2020 8:09 AM EDT documented in this encounter Results * HM PAP/HPV (05/31/2020 8:09 AM EDT) Historical Provider HEALTH MAINTENANCE Final Result documented in this encounter Visit Diagnoses Not on filedocumented in this encounter Additional Health Concerns Assessment Noted Time PHQ-9 Depression Total Score: 0 02/10/20 23 4:03 PM EDT documented as of this encounter Care Teams Script Editor Relationship Specialty Start Date End Date Cora Deleon MD [address] [place] [address] PCP - General Family Medicine 06/28/18 documented as of this encounter
--- OUTSIDE RECORDS SUMMARY | 2025-07-20 16:31 | XMS_ITS | Encounter Summary ---
Author Organization [employer] Address [address] [place] [address] 7 [place] [address] Care Team Providers Care Gas Scrubber Operator Name Role Phone Cora Deleon MD Primary Care Provider + Reason for Visit * Reason Onset Date Comments Referral 11/30/2024 Encounter Details Date Type Department Care Team ([facility] Contact Info) Description 11/30/2024 Telephone [facility] MEDICINE 230 [place], [place] [phone] Cora Deleon MD [address] [place], [place] [phone] Referral Social History Tobacco Use Types Packs/Day Years [...] encounter Miscellaneous Notes * Telephone Encounter - Sarkis Tao - 11/30/2024 9:52 AM EST Tc from pt requesting that referral for allergies be sent to Because pt called to request an appt and office states they have not received anything. documented in this encounter Plan of Treatment Not on file documented as of this encounter Visit Diagnoses Not on filedocumented in this encounter Additional Health Concerns Assessment Noted Time PHQ-9 Depression Total Score: 0 02/10/20 23 4:03 PM EDT documented as of this encounter Care Teams Gas Scrubber Operator Relationship Specialty Start Date End Date Cora Deleon MD [address] [place] [address] PCP - General Family Medicine 06/28/18 documented as of this encounter
--- OUTSIDE RECORDS SUMMARY | 2025-07-20 16:31 | XMS_ITS | Patient Health Record ---
Author Organization [facility] Address [address] [place] [address] Care Team Providers Care Putty Worker Name Role Phone OMKAR MANNING Primary Care Provider Unav ailable STEVE SEALS Unavailable [phone] Allergies No Known Allergies Results Component Value Reference Range Notes [id number] IGP No Culture 30 Plus Reviewed date:08/11/2024 02:03:48 PM Interpretation: Performing Lab:[facility], [address], [address], [place], Phone - [phone], Director - [facility] Notes/Report: Clinical Information:[id number] LMP / Prev Treat...CJU=[id number];Cryo No. of containers..01 ThinPrep Vial DIAGNOSIS: NEGATIVE FOR INTRAEPITHELIAL LESION OR MALIGNANCY. FUNGAL ORGANISMS MORPHOLOGICALLY CONSISTENT WITH JESICA SPECIES ARE PRESENT. Specimen adequacy: Satisfactory for evaluation. Endocervical and/or squamous metaplastic cells (endocervical component) are present. Clinician provided ICD10: Z0 1.419 Performed by: Maryan maradiaga, Staff Writer (ASCP) . . Note: The Pap smear [...] Marylou Dunbar, [address], [place], Phone - [phone], Director - [facility] Notes/Report: Clinical Information:[id number] LMP / Prev Treat...TAL=[id number];Cryo No. of containers..01 ThinPrep Vial Reason For [...] W/U Status Risk Notes Problem Essential hypertension (18251011) Essential (primary) hypertension (I10) Active confirmed Problem Postcoital bleeding (14393549) Postcoital and contact bleeding (N93.0) Active confirmed Problem Long-term current use of anticoagulant (691742562) [facility] (current) use of anticoagulants (Z79.01) Active confirmed Vital Signs Temperature 98.0 degrees Fahrenheit 08/08/2024 Blood pressure diastolic 78 mm Hg 08/08/2024 Height 67 in 08/08/2024 Blood pressure systolic 110 mm Hg 08/08/2024 Weight 166 lbs 08/08/2024 BMI 26 kg/m2 08/08/2024 Encounters Encounter Location Date Provider Diagnosis Total [facility] [address] [place] [address] 08/08/2024 STEVE SEALS Encounter for gynecological examination [...] Provider Name:STEVE Ang, 08/15/2025 03:30:00 PM, [address], [address], [place], [address], Insurance Providers Payer Name Payer Address Payer Phone Subscriber Number Group Number Insured Name Patient Relationship to Insured Coverage Start Date Coverage End Date [employer] [place] [phone] [place] [address] [id number] ZHANG CANAS Self - patient is the [...]
--- OUTSIDE RECORDS SUMMARY | 2025-07-20 16:31 | XMS_ITS | Encounter Summary ---
Author Organization [employer] Address [address] [facility] 7 [place] [address] Care Team Providers Care Plater Production Name Role Phone Cora Deleon MD Primary Care Provider + Reason for Visit * Reason Onset Date Comments Appointment Request 11/24/2023 Encounter Details Date Type Department Care Team ([facility] Contact Info) Description 11/24/2023 Telephone [facility] MEDICINE [address] [place], [place] [phone] Cora Deleon MD [address] [place], [place] [phone] Appointment Request Social History Tobacco Use Types Packs/Day Years Used Date Smoking Tobacco: Never Passive Smoke Exposure: Never Smokeless Tobacco: Never Depression Answer Date Recorded Patient Health Questionnaire-9 Score 0 02/09/2023 Housing Stability Answer Date Recorded What is your housing situation today? I have ericjennifer stallings 08/26/[address] you [...] t he electric, gas, oil or water [employer] threatened to shut off services in your [...] encounter Miscellaneous Notes * Telephone Encounter - Yahaira Ma - 11/24/2023 10:43 AM EST Tc from pt requesting f/u appt with PCP documented in this encounter Plan of Treatment Not on file documented as of this encounter Visit Diagnoses Not on filedocumented in this encounter Additional Health Concerns Assessment Noted Time PHQ-9 Depression Total Score: 0 02/10/20 23 4:03 PM EDT documented as of this encounter Care Teams Plater Production Relationship Specialty Start Date End Date Cora Deleon MD [address] [place] [address] PCP - General Family Medicine 06/28/18 documented as of this encounter
--- OUTSIDE RECORDS SUMMARY | 2025-07-20 16:31 | XMS_ITS | Encounter Summary ---
Author Organization [employer] Address [address] [facility] 7t [place] [address] Care Team Providers Care Pin Worker Name Role Phone Cora Deleon MD Primary Care Provider + Reason for Visit * Reason Comments Med Refill Encounter Details Date Type Department Care Team ([facility] st Contact Info) Description 03/27/2025 Refill [facility] [address] [place], [place] [phone] Cora Deleon MD [address] [place] [address] Social History Tobacco Use Types Packs/Day Years [...] documented as of this encounter Care Teams Pin Worker Relationship Specialty Start Date End Date Cora Deleon MD [address] [place] [address] PCP - General Family Medicine 06/28/18 documented as of this encounter
--- OUTSIDE RECORDS SUMMARY | 2025-07-20 16:31 | XMS_ITS | Encounter Summary ---
Author Organization [employer] Address [address] [facility] 7t [place] [address] Care Team Providers Care Sheather Name Role Phone Cora Deleon MD Primary Care Provider + Reason for Visit * Reason Comments Med Refill Encounter Details Date Type Department Care Team ([facility] st Contact Info) Description 10/25/2023 Refill [facility] MEDICINE 230 [place] [address] Cora Deleon MD [address] [place] [address] Social History Tobacco Use Types Packs/Day Years [...] documented as of this encounter Care Teams Sheather Relationship Specialty Start Date End Date Cora Deleon MD [address] [place] [address] PCP - General Family Medicine 06/28/18 documented as of this encounter
--- OUTSIDE RECORDS SUMMARY | 2025-07-20 16:31 | XMS_ITS | Encounter Summary ---
Author Organization [employer] Address [address] [facility] 7t [place] [address] Care Team Providers Care Poultry Culler Name Role Phone Cora Deleon MD Primary Care Provider + Encounter Details Date Type Department Care Team ([facility] st Contact Info) Description 07/20/2025 Orders Only [facility] MEDICINE 230 [place] [address] Cora Deleon MD 230 [place] [address] Social History Tobacco Use Types Packs/Day Years [...] Procedure Name Priority Date/Time Associated Diagnosis Comments BI MAMMOGRAM DIAGNOSTIC TOMOSYNTHESIS BILATERAL Routine 07/20/2025 12:35 PM EDT documented in this encounter Results * BI Mammogram Diagnostic Tomosynthesis Bilateral (07/20/2025 12:35 PM EDT) Anatomical Region Laterality Modality Breast Bilateral Mammography 07/20/2025 12:3 5 PM EDT Narrative 07/20/2025 1:16 PM EDT [address] [place] [address] Mammography Report Signed Patient: Sneha Ruiz MR#: [id number] 001 : 1975 Acct:[id number] Age/Sex: 50 / F ADM Date: 07/20/25 Loc: HO.MAMMO Attending Dr: Cora Deleon MD Ordering Physician: Cora Deleon MD Results: 3.6MProbably Benign Finding - Short 6 M F/U Suggested Date of Service: 07/20/25 Follow Up: 6 Month F/U Procedure(s): MM tomosynthesis diagnostic BI Accession Number(s): [id number] cc: Cora Deleon MD EXAMINATION: MM DIAGNOSTIC DIGITAL BREAST TOMOSYNTHESIS, BILATERAL Bilateral Limited ultrasound. CLINICAL INFORMATION: [Call back from screening for prominent left axillary lymph nodes and right asymmetry superior breast on MLO view. COMPARISON: Mammography: Comparison is made with relevant prior exams. TECHNIQUE: Digital breast mammography with tomosynthesis is performed in both the craniocaudal and mediolateral oblique views along with computer-aided detection (CAD). FINDINGS: The breasts are heterogeneously dense, which may obscure small masses (ACR BI-RADS breast composition Category c). Right: Asymmetry in the superior right breast on MLO view partially effaces on additional imaging projections. No suspicious calcifications or other abnormal findings. Targeted color Doppler ultrasound scanning in the right breast from 10-1 o'clock demonstrates normal fibronodular breast tissue. There is an incidental simple cyst at 11:00 4 cm from the nipple measuring 4 x 4 x 3 mm. Left: Targeted color Doppler ultrasound in the left axilla demonstrates 2 normal-appearing axillary lymph nodes with normal to slightly prominent cortices. Otherwise there is no suspicious abnormal finding. Results are provided to the patient at time of visit by the technologist. MM/MM tomosynthesis diagnostic BI IMPRESSION: Right: 1. Asymmetry superior breast on MLO view which partially effaces and without sonographic correlate. Recommend 6 month follow-up for further evaluation of stability. 2. Simple cysts on ultrasound. Benign. Left: Slightly prominent left axillary lymph nodes. Recommend 6 month follow-up ultrasound for further evaluation of stability. ASSESSMENT: BI-RADS BI-RADS 3 - Probably benign finding(s) - 6 month follow-up suggested RECOMMENDATION: 6 Month F/U This patient's information was entered into a reminder system with a target due date for their next mammogram. Electronically signed by: Mehreen Pennington DO 07/20/2025 01:13 PM EDT Dictated By: Meheren Pennington DO Signed By: <Electronically signed by Mehreen Pennington DO in OV> 07/20/25 1313 DD/ 1235 TD/TT: 07/20/25 1250 Manager Of Health: Procedure Note Donotuseinterpreter, Image - 07/20/2025 [facility] [address] [place], [place] [address] Mammography Report Signed Patient: Sneha Ruiz MMR#: [id number] 001 : 1975Acct:[id number] Age/Sex: 50 / FADM Date: 07/20/25 Loc: HO.MAMMO Attending Dr: Cora Deleon MD Ordering Physician: Cora Deleon MD Results: 3.6MProbably Benign Finding - Short 6 M F/U Suggested Date of Service: 07/20/25Follow Up: 6 Month F/U Procedure(s): MM tomosynthesis diagnostic BI Accession Number(s): [id number] cc: Cora Deleon MD EXAMINATION: MM DIAGNOSTIC DIGITAL BREAST TOMOSYNTHESIS, BILATERAL Bilateral Limited ultrasound. CLINICAL INFORMATION: [Call back from screening for prominent left axillary lymph nodes and right asymmetry superior breast on MLO view. COMPARISON: Mammography: Comparison is made with relevant prior exams. TECHNIQUE: Digital breast mammography with tomosynthesis is performed in both the craniocaudal and mediolateral oblique views along with computer-aided detection (CAD). FINDINGS: The breasts are heterogeneously dense, which may obscure small masses (ACR BI-RADS breast composition Category c). Right: Asymmetry in the superior right breast on MLO view partially effaces on additional imaging projections. No suspicious calcifications or other abnormal findings. Targeted color Doppler ultrasound scanning in the right breast from 10-1 o'clock demonstrates normal fibronodular breast tissue. There is an incidental simple cyst at 11:00 4 cm from the nipple measuring 4 x 4 x 3 mm. Left: Targeted color Doppler ultrasound in the left axilla demonstrates 2 normal-appearing axillary lymph nodes with normal to slightly prominent cortices. Otherwise there is no suspicious abnormal finding. Results are provided to the patient at time of visit by the technologist. MM/MM tomosynthesis diagnostic BI IMPRESSION: Right: 1. Asymmetry superior breast on MLO view which partially effaces and without sonographic correlate. Recommend 6 month follow-up for further evaluation of stability. 2. Simple cysts on ultrasound. Benign. Left: Slightly prominent left axillary lymph nodes. Recommend 6 month follow-up ultrasound for further evaluation of stability. ASSESSMENT: BI-RADS BI-RADS 3 - Probably benign finding(s) - 6 month follow-up suggested RECOMMENDATION: 6 Month F/U This patient's information was entered into a reminder system with a target due date for their next mammogram. Electronically signed by: Mehreen Pennington DO 07/20/2025 01:13 PM EDT Dictated By: Mehreen Pennington DO Signed By: <Electronically signed by Mehreen Pennington DO in OV> 07/20/25 1313 DD/ 1235 TD/TT: 07/20/25 1250 Manager Of Health: us Cora Deleon MD IMG BI PROCEDURES Final Result documented in this encounter Visit Diagnoses Not on filedocumented in this encounter Additional Health Concerns Assessment Noted Time PHQ-9 Depression Total Score: 0 02/10/20 23 4:03 PM EDT documented as of this encounter Care Teams Poultry Culler Relationship Specialty Start Date End Date Cora Deleon MD [address] [place] [address] PCP - General Family Medicine 06/28/18 documented as of this encounter
--- OUTSIDE RECORDS SUMMARY | 2025-07-20 16:32 | XMS_ITS | Clinical Summary ---
Author Organization [employer] Address [address] [place] [address] [address] [place] [address] Care Team Providers Care Configuration Engineer Name Role Phone Cora Deleon MD Primary Care Provider + Allergies No known active allergies Medications ASPIRIN 81 MG chewable tablet as directed Ac tive albuterol 108 (90 Base) MCG/ACT inhaler inhale 2 puff by inhalation route every 4 - 6 hours as needed for cough, wheeze, sob 021 Active Symbicort 80-4.5 MCG/ACT inhaler USE 2 PUFFS BY MOUTH TWICE DAILY USING A SPACER 023 Active ascorbic acid (Vitamin C) 500 MG tablet TAKE 1 TABLET(500 MG) BY MOUTH IN THE MORNING 90 tablet 024 Active fexofenadine (Irina) 180 MG tablet Take 1 tablet (180 mg) by mouth if needed each day (Allergies). 30 tablet 024 Active Ketotifen Fumarate 0.035 % solutionIndication s:Allergic conjunctivitis of both eyes Administer 1 drop into both eyes 2 times daily. 10 mL 3 025 Active fluticasone (Flonase) 50 MCG/ACT nasal spray Administer 1 spray into each nostril Once per day. 16 g 2 025 Active senna-docusate sodium (Senokot-S) 8.6-50 MG tablet Take 1 tablet by mouth Once per day. 30 tablet 025 04/13 Active levothyroxine (Synthroid, Levoxyl) 125 MCG tablet TAKE 1 TABLET(125 MCG) BY MOUTH 1 TIME BEFORE BREAKFAST FOR HYPOTHYROIDISM 90 tablet 1 025 Active losartan-hydroCHLO ROthiazide (Hyzaar) 100-25 MG tabletIndications: Coronary arteriosclerosis TAKE 1 TABLET BY MOUTH EVERY DAY FOR HIGH BLOOD PRESSURE 90 tablet 1 025 Active atorvastatin (Lipitor) 40 MG tablet TAKE 1 TABLET BY MOUTH EVERY DAY AT BEDTIME 90 tablet 1 025 Active ferrous gluconate (Fergon) 324 (38 Fe) MG tablet TAKE 1 TABLET(324 MG) BY MOUTH WITH BREAKFAST 90 tablet 025 Active atorvastatin (Lipitor) 40 MG tablet TAKE 1 TABLET BY MOUTH EVERY DAY AT BEDTIME 90 tablet 1 025 06/26 Discontinued( Reorder (will not trigger notification to Pharmacy)) ferrous gluconate (Fergon) 324 (38 Fe) MG tablet TAKE 1 TABLET(324 MG) BY MOUTH WITH BREAKFAST 90 tablet 025 07/07 Discontinued Active Problems Problem Noted Date Diagnosed Date Renal cyst, acquired, left 2025 Slow transit constipation 04/13/2025 Assessment & Plan (04/13/2025 3:02 PM EDT): Counseled to hold iron tablets x 1 week and continue off if constipation improves, will check hemoglobin levels and decide if she needs to continue with iron (Hx DUB). Advised increase water intake, raisins, prune juice, latoya, flaxseed powder. She will use Senokot as needed if she does not have a BM in more than 2 days. Any referral to GI will be done again as she needs screening colonoscopy Petechiae 04/13/2025 Assessment & Plan (04/13/2025 2:59 PM EDT): It could be related to aspirin or recent viral URI. Will check platelets with a CBC as patient has to follow-up on hemoglobin levels Pain of upper abdomen 04/13/2025 Assessment & Plan (04/13/2025 3:07 PM EDT): It seems to be related to constipation, unclear if she has dyspepsia/PUD?. Counseled regarding improving constipation, see below Order abdominal ultrasound Follow-up with GI and with me in 3 months Encounter for preventive health examination 01/07 Assessment & Plan (01/18/2025 10:53 AM EDT): Discussed with patient re increase fresh fruit and vegetable intake. Counseled re moderate exercise as tolerated, up to 20min/d Patient feels safe at home. PAP smear.- UTD, she will contact [employer] to schedule Pap smear this year. Mammogram.- UTD, next due 04/2025. Eye exam.- UTD next due 2025. CRC screen.- Overdue, patient will call to reschedule colonoscopy appointment. Lipids/FBS.- overdue to be ordered. Vaccinations.- she will have Influenza vaccination today. Dental visit.- UTD, she has an appointment next week. Oligomenorrhea 01/18/2025 Assessment & Plan (01/18/2025 10:54 AM EDT): Most likely perimenopause. Reassured and advised to keep track of menstrual cycles. FU with [employer]. Order labs to rule out hypothyroidism. Allergic conjunctivitis of both eyes 01/18/2025 Assessment & Plan (01/18/2025 10:56 AM EDT): Use Ketotifen. Overweight 01/18/2025 Assessment & Plan (01/18/2025 11:01 AM EDT): Discussed re weight reduction options including exercise, life style modifications, diet. Recommended to decrease soda and sugary beverage consumption, increase protein intake with meals (at least 1 portion of protein with each meal) to assist with satiety, increase dietary fiber Recommended at least 150 min/week of moderate intensity exercise. Referral to dietitian. It may be related to perimenopause changes. Will FU after [employer] evaluation. Subacute maxillary sinusitis 09/28/2024 Assessment & Plan (09/28/2024 2:47 PM EST): Advised to use NS 3-4x/d. DC Flonase and use Nasonex x 7-10d, then prn DC Zyrtec and start Irina x 10d then prn Take Augmentin x 7-10d, out of work x 2d, back on Sunday 09/30 Take tylenol prn pain, do gargles with warm water/salt/apolinar tea. Re consult prn worsening of sxs. Epicondylitis, lateral, left 05/19/2024 Assessment & Plan (05/19/2024 12:00 PM EDT): Refer to OT Use Tylenol PRN pain. DUB (dysfunctional uterine bleeding) 01/04/2024 Assessment & Plan (04/13/2025 3:03 PM EDT): Probably related to perimenopause, will continue checking hemoglobin and decide if she needs to continue on iron supplementation. Follow-up with [employer] in 3 months, will consider HRT if symptoms/bleeding is not controlled Assessment & Plan (05/19/2024 11:57 AM EDT): Patient irregular menses cycles probably related to menopause. Hemoglobin is stable and will continue with Iron pills daily and follow up with [employer]. Assessment & Plan (01/06/2024 7:27 PM EST): Most likely perimenopause, she'll keep menstrual bleeding log FU with [employer] this year for PAP smear Order labs Renal cyst, acquired, right 01/04/2024 Overview (05/19/2024): Renal US on 01/2024 : Benign-appearing bilateral renal cysts measuring up to 7.4 cm on the left. No follow up imaging is recommended7.4 cm Assessment & Plan (05/19/2024 11:56 AM EDT): Renal US on 01/2024 : Benign-appearing bilateral renal cysts measuring up to 7.4 cm on the left. No follow up imaging is recommended7.4 cm. Discuss with patient of about warning signs, UTI, Hematuria, Worsening Flank pain and re consult PRN. Assessment & Plan (01/06/2024 7:28 PM EST): It seems to be benign Order renal US to compare and define it she needs further fu. Anemia 01/04/2024 Assessment & Plan (05/19/2024 11:57 AM EDT): Secondary to DUB, see above. Assessment & Plan (01/06/2024 7:35 PM EST): Order anemia studies, it could be related to DUB Order GI evaluation to ro GIB Encounter for screening for malignant neoplasm o f colon 01/04/2024 Assessment & Plan (04/13/2025 3:03 PM EDT): Sent 1 year ago, patient was never scheduled for colonoscopy. New referral sent Acute sinusitis 02/09/2023 Assessment & Plan (02/09/2023 4:51 PM EDT): Most likely triggered by allergies. no evidence of acute sinusitis at this time. 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 Moderate persistent asthma with exacerbation 01/2023 Assessment & Plan (05/19/2024 11:59 AM EDT): Seems to be much better controlled. Advised to use Symbicort once daily only, will increase to twice a day if she has more than 2 exacerbations a month. Continue to follow PRN. She will get PCV-20 today. Assessment & Plan (02/09/2023 4:51 PM EDT): increase flovent to 220 BID and FU in 3 months improve allergy control as above continue proair PRN Pt is a nonsmoker Irritant contact dermatitis 12/30/2022 Acquired hypothyroidism 12/01/2022 Assessment & Plan (02/09/2023 4:53 PM EDT): Continue levothyroxine 125mcg and check TSH prior to next appointment I alexia adjust medications as needed Allergic rhinitis due to pollen 12/01/2022 Assessment & Plan (02/09/2023 4:51 PM EDT): See sinusitis. CORA positive 12/01/2022 Coronary arteriosclerosis 12/01/2022 Assessment & Plan (02/09/2023 4:53 PM EDT): Check lipids and BMP she is chest pain free and has FU with cardiology every year continue aspirin, lipitor, plavix, and losartan FU with me in 3 months. History of coronary artery stent placement 12/01 Hypertensive disorder 12/01/2022 Assessment & Plan (01/06/2024 7:25 PM EST): Controlled BP is at goal. Continue losartan/hctz. Counseled re low salt diet/increase moderate physical activity. Check home BP BIW and prn CP/SOMERS/BENITEZ Non smoking patient. Assessment & Plan (02/09/2023 4:52 PM EDT): Controlled BP is at goal. No change in medications. Counseled re low salt diet/increase moderate physical activity. Check home BP BIW and prn CP/SOMERS/BENITEZ Non smoking patient. Moderate persistent asthma without complication 12/01/2022 Paresthesia of lower extremity 12/01/2022 Postcoital bleeding 12/01/2022 Vitamin D deficiency 12/01/2022 Assessment & Plan (01/06/2024 7:34 PM EST): Off vit D supplementation, order labs and fu Adjustment insomnia 12/07/2018 Anxiety 12/07/2018 Resolved Problems Problem Noted Date Diagnosed Date Resolved Date Atypical chest pain 06/28/2018 04/13/20 25 Encounters Date Type Department Care Team Description 07/20/2025 Orders Only [facility] [address] [place] [address] Cora Deleon MD 07/07/2025 Refill [facility] [address] [facility], [place] [id number] Sneha Lea MD 06/26/2025 Refill [facility] [address] [place] [address] Cora Deleon MD 06/14/2025 Results Follow-Up [facility] [address] [place] [address] Cora Deleon MD BI Mammogram Screening Tomosynthesis Bilateral 06/14/2025 Refill [facility] [address] [place] [address] Cora Deleon MD 06/02/2025 Orders Only [facility] [address] [place] [address] Cora Deleon MD 05/11/2025 Telephone [facility] [address] [facility], [place] [id number] Cora Deleon MD July recall from Last 3 Months Immunizations Immunization Administration Dates Next Due Influenza injectable quadriv alent preservative free 09/18/2021,08/01/2019,08/21/2018 Influenza, seasonal, injecta ble, preservative free 01/18/2025 Eryn SARS-CoV-2 Vaccination 01/24/2021,2020 Pfizer Covid-19 Vaccine 12+ 09/18/2021 Pneumococcal Conjugate PCV 20 05/19/2024 Tdap 05/19/2024 Social History Tobacco Use Types Packs/Day Years Used Date Smoking Tobacco: Never Passive Smoke Exposure: Never Smokeless Tobacco: Never Tobacco Cessation:Counseling Given: Not Answered Alcohol Use Standard Drinks/Week Comments Yes 0 [...] Q2 Not on file 07/11/2024 Comments No Intention Date Recorded No desire to become (finding) 0 01/18/2025 Sex and Gender Information Value Date Recorded Sex Assigned at Female 09/08/2022 10:34 AM EDT Legal Sex Female 10:34 AM EDT Gender Identity Female 09/08/2022 10:34 AM EDT Sexual Orientation Straight 09/08/2022 10 :34 AM EDT Last Filed Vital Signs Vital Sign Reading Time Taken Comments Blood Pressure 116/86 04/13/2025 10:30 AM EDT Pulse 92 04/13/2025 10:30 AM EDT Temperature 36.2 C (97.2 F) 04/13/2025 10:30 AM EDT Respiratory Rate 16 04/13/2025 10:30 AM EDT Oxygen Saturation 98% 01/18/2025 10:22 AM EDT Inhaled Oxygen Concentration - - Weight 72.2 kg (159 lb 2 oz) 04/13/2025 10:30 AM EDT Height 170.2 cm (5' 7 ) 04/13/2025 10:30 AM EDT Body Mass Index 24.92 04/13/2025 10:30 AM EDT Plan of Treatment Health Maintenance Due Date Last Done Comments CT Colonography 1975 Colonoscopy 1975 Colorectal Cancer Screening 1975 FIT DNA/Cologuard 1975 FIT 1975 FOBT 1975 HIV Screening 1975 Sigmoidoscopy 1975 Alcohol/Substance Use Screening 1987 Hepatitis C Screening 1993 Hepatitis B Vaccines (1 of 3 - 19+ 3-dose series) 1994 Zoster Vaccines (1 of 2) 2025 SDOH Screening 05/11/2025 05/11/2024 Depression Screening 05/19/2025 05/19/2024, 02/10/20 23 Cervical Cancer Screening 05/31/2025 HPV/Cotest 05/31/2025 12/28/2018 Pap Smear 05/31/2025 05/31/2020, 12/28/2018 COVID-19 Vaccine ( season) 2025 09/18/2021, 01/24/2021, 01/02/2021 Influenza Vaccine (#1) 2025 , 09/18/2021, 08/01/2019, Additional history exists Family Planning (PISQ) 01/18/2026 01/18/2025 Disability Screening 04/13/2026 04/13/2025 Tobacco Screening 04/13/2026 04/13/2025 Mammogram 07/20/2026 07/20/2025, 05/10, 04/21/2024, Additional history exists Lipid Panel 02/11/2030 02/11/2025, 0312/2023, 03/01/2021 DTaP/Tdap/Td Vaccines (2 - Td or Tdap) 05/19/2034 05/19/2024 RSV Patients and Patients Aged 60 years or older (1 - 1-dose 75+ series) 2050 Pneumococcal Vaccine: 50+ Years Completed 05/19/2024 HIB Vaccines Aged Out No longer eligi ble based on patient's age to complete this topic HPV Vaccines Aged Out No longer eligi ble based on patient's age to complete this topic Hepatitis A Vaccines Aged Out No long er eligible based on patient's age to complete this topic IPV Vaccines Aged Out No longer eligi ble based on patient's age to complete this topic Meningococcal B Vaccine Aged Out No l onger eligible based on patient's age to complete this topic Meningococcal Vaccine Aged Out No donald osmany eligible based on patient's age to complete this topic RSV under 20 months Aged Out No longe r eligible based on patient's age to complete this topic Rotavirus Vaccines Aged Out No longer eligible based on patient's age to complete this topic Procedures Procedure Name Priority Date/Time Associated Diagnosis Comments BI MAMMOGRAM DIAGNOSTIC TOMOSYNTHESIS BILATERAL Routine 07/20/2025 12:35 PM EDT BI MAMMOGRAM SCREENING TOMOSYNTHESIS BILATERAL Routine 06/02/2025 2:20 PM EDT US ABDOMEN COMPLETE Routine 05/04/2025 7 :48 PM EDT Pain of upper abdomen LIPID PANEL WITH REFLEX TO DIRECT LDL Routine 02/11/2025 9:01 AM EDT Encounter for preventive health examination HM PAP/HPV Routine 05/31/2020 8:09 AM EDT ZZZ HISTORICAL HPV E6/E7 RFLX MARIA A 16 18/45 Routine 12/28/2018 11:25 AM EST from Last 3 Months or Most Recently Relevant to Health Maintenance Results * BI Mammogram Diagnostic Tomosynthesis Bilateral (07/20/2025 12:35 PM EDT) Anatomical Region Laterality Modality Breast Bilateral Mammography 07/20/2025 12:3 5 PM EDT Narrative 07/20/2025 1:16 PM EDT [facility] [address] [place] [address] Mammography Report Signed Patient: Sneha Ruiz MR#: [id number] 001 : 1975 Acct:[id number] Age/Sex: 50 / F ADM Date: 07/20/25 Loc: HO.MAMMO Attending Dr: Cora Deleon MD Ordering Physician: Cora Deleon MD Results: 3.6MProbably Benign Finding - Short 6 M F/U Suggested Date of Service: 07/20/25 Follow Up: 6 Month F/U Procedure(s): MM tomosynthesis diagnostic BI Accession Number(s): [id number] cc: Cora Deleon MD EXAMINATION: MM DIAGNOSTIC [...] ultrasound scanning in the right breast from 08-09 o'clock demonstrates normal fibronodular breast tissue. There [...] 07/20/25 1313 DD/ 1235 TD/TT: 07/20/25 1250 Corporate Development Associate: Procedure Note Donotuseinterpreter, Image - 07/20/2025 [facility] [address] [place] [address] Mammography Report Signed Patient: Sneha Ruiz MMR#: [id number] 001 : 1975Acct:[id number] Age/Sex: 50 / FADM Date: 07/20/25 Loc: HO.MAMMO Attending Dr: Cora Deleon MD Ordering Physician: Cora Deleon MD Results: 3.6MProbably Benign Finding - Short 6 M F/U Suggested Date of Service: 07/20/25Follow Up: 6 Month F/U Procedure(s): MM tomosynthesis diagnostic BI Accession Number(s): [id number] cc: Cora Deleon MD EXAMINATION: MM DIAGNOSTIC [...] 07/20/25 1313 DD/ 1235 TD/TT: 07/20/25 1250 Corporate Development Associate: us Cora Deleon MD IMG BI PROCEDURES Final Result * BI Mammogram Screening Tomosynthesis Bilateral (06/02/2025 2:20 PM EDT) Anatomical Region Laterality Modality Breast Bilateral Mammography 06/02/2025 2:20 PM EDT Narrative 06/13/2025 11:11 AM EDT [facility] [place] [address] Mammography Report Signed Patient: Sneha Ruiz MR#: [id number] 001 : 1975 Acct:[id number] Age/Sex: 50 / F ADM Date: 06/02/25 Loc: HO.MAMMO Attending Dr: Cora Deleon MD Ordering Physician: Cora Deleon MD Results: 0In complete: Needs Additional Imaging Evaluation Date of Service: 06/02/25 Follow Up: Additional Imagi ng Procedure(s): MM tomosynthesis screening BI Accession Number(s): [id number] cc: Cora Deleon MD EXAMINATION: MM SCREENING DIGITAL BREAST TOMOSYNTHESIS, BILATERAL CLINICAL INFORMATION: Screening. Asymptomatic. COMPARISON: Mammography: Comparison is made with available priors TECHNIQUE: Digital breast mammography with tomosynthesis is performed in both the craniocaudal and mediolateral oblique views along with computer-aided detection (CAD). FINDINGS: The breasts are heterogeneously dense, which may obscure small masses (ACR BI-RADS breast composition Category c). Right: Asymmetry superior breast middle depth on MLO view. No suspicious calcifications or other abnormal findings. Left: Question prominent axillary lymph nodes. No suspicious masses calcifications or other abnormal findings. MM/MM tomosynthesis screening BI IMPRESSION: Additional imaging is recommended ASSESSMENT: BI-RADS BI-RADS 0 - Incomplete: Needs additional Imaging. RECOMMENDATION: 1. Additional views of the bilateral breasts. 2. Targeted ultrasound if warranted after review of the additional views. 3. Radiology department staff will contact the patient for additional imaging. Additional Imaging required This examination should not preclude the clinical evaluation of a suspicious palpable abnormality. This patient's information was entered into a reminder system with a target due date for their next mammogram. Electronically signed by: Mehreen Pennington DO 06/13/2025 11:09 AM EDT Dictated By: Mehreen Pennington DO Signed By: <Electronically signed by Mehreen Pennington DO in OV> 06/13/25 1109 DD/ 1420 TD/TT: 06/02/25 1430 Corporate Development Associate: Procedure Note Donotuseinterpreter, Image - 06/13/2025 [facility] [address] [place] [address] Mammography Report Signed Patient: Sneha Ruiz MMR#: [id number] 001 : 1975Acct:[id number] Age/Sex: 50 / FADM Date: 06/02/25 Loc: HO.MAMMO Attending Dr: Cora Deleon MD Ordering Physician: Cora Deleon MDResults: 0In complete: Needs Additional Imaging Evaluation Date of Service: 06/02/25Follow Up: Additional Imagi ng Procedure(s): MM tomosynthesis screening BI Accession Number(s): [id number] cc: Cora Deleon MD EXAMINATION: MM SCREENING DIGITAL BREAST TOMOSYNTHESIS, BILATERAL CLINICAL INFORMATION: Screening. Asymptomatic. COMPARISON: Mammography: Comparison is made with available priors TECHNIQUE: Digital breast mammography with tomosynthesis is performed in both the craniocaudal and mediolateral oblique views along with computer-aided detection (CAD). FINDINGS: The breasts are heterogeneously dense, which may obscure small masses (ACR BI-RADS breast composition Category c). Right: Asymmetry superior breast middle depth on MLO view. No suspicious calcifications or other abnormal findings. Left: Question prominent axillary lymph nodes. No suspicious masses calcifications or other abnormal findings. MM/MM tomosynthesis screening BI IMPRESSION: Additional imaging is recommended ASSESSMENT: BI-RADS BI-RADS 0 - Incomplete: Needs additional Imaging. RECOMMENDATION: 1. Additional views of the bilateral breasts. 2. Targeted ultrasound if warranted after review of the additional views. 3. Radiology department staff will contact the patient for additional imaging. Additional Imaging required This examination should not preclude the clinical evaluation of a suspicious palpable abnormality. This patient's information was entered into a reminder system with a target due date for their next mammogram. Electronically signed by: Mehreen Pennington DO 06/13/2025 11:09 AM EDT Dictated By: Mehreen Pennington DO Signed By: <Electronically signed by Mehreen Pennington DO in OV> 06/13/25 1109 DD/ 1420 TD/TT: 06/02/25 1430 Corporate Development Associate: us Cora Deleon MD IMG BI PROCEDURES Edited Result - Final * US Abdomen Complete (05/04/2025 7:48 PM EDT) Anatomical Region Laterality Modality Abdomen Ultrasound 05/04/2025 7:48 PM EDT Narrative 05/04/2025 7:51 PM EDT [place] [address] Ultrasound Report Signed Patient: Sneha Ruiz MR#: [id number] 001 : 1975 Acct:[id number] Age/Sex: 49 / F ADM Date: 05/04/25 Loc: HO.US Attending Dr: Cora Deleon MD Ordering Physician: Cora Deleon MD Date of Service: 05/04/25 Procedure(s): US abdomen complete Accession Number(s): [id number] cc: Cora Deleon MD CLINICAL HISTORY: Upper abdomen and left quadrant pain US abdomen complete Comparison: None Provided Findings: Gallbladder unremarkable, no stone formation or wall thickening. Common duct measures 2 mm. No sonographic Schmitt sign. Liver is homogeneous and normal in size and echogenicity. Main portal vein patent with normal direction of flow. Pancreas is unremarkable. Aorta and IVC patent and normal in caliber. The right kidney is normal, 12.0 cm in length. No focal abnormality or hydronephrosis. 6.1 cm septated cyst. The left kidney is normal, 12.7 cm in length. No focal abnormality or hydronephrosis. 8.1 x 7.4 cm septated cyst. The spleen is normal, 9.1 cm in length. No focal abnormality. Impression: Large bilateral septated renal cysts Otherwise unremarkable This document has been electronically signed by: Umang Nolen MD on 05/04/2025 19:48:57 Dictated By: Umang Nolen MD Signed By: <Electronically signed by Umang Nolen MD in OV> 05/04/251948 DD/ 47 TD/TT: 05/04/251947 Corporate Development Associate: Procedure Note Donotuseinterpreter, Image - 05/04/2025 [place] [address] Ultrasound Report Signed Patient: Sneha Ruiz MMR#: [id number] 001 : 1975Acct:[id number] Age/Sex: 49 / FADM Date: 05/04/25 Loc: HO.US Attending Dr: Cora Deleon MD Ordering Physician: Cora Deleon MD Date of Service: 05/04/25 Procedure(s): US abdomen complete Accession Number(s): [id number] cc: Cora Deleon MD CLINICAL HISTORY: Upper abdomen and left quadrant pain US abdomen complete Comparison: None Provided Findings: Gallbladder unremarkable, no stone formation or wall thickening. Common duct measures 2 mm. No sonographic Schmitt sign. Liver is homogeneous and normal in size and echogenicity. Main portal vein patent with normal direction of flow. Pancreas is unremarkable. Aorta and IVC patent and normal in caliber. The right kidney is normal, 12.0 cm in length. No focal abnormality or hydronephrosis. 6.1 cm septated cyst. The left kidney is normal, 12.7 cm in length. No focal abnormality or hydronephrosis. 8.1 x 7.4 cm septated cyst. The spleen is normal, 9.1 cm in length. No focal abnormality. Impression: Large bilateral septated renal cysts Otherwise unremarkable This document has been electronically signed by: Umang Nolen MD on 05/04/2025 19:48:57 Dictated By: Umang Nolen MD Signed By: <Electronically signed by Umang Nolen MD in OV> 05/04/251948 DD/ 47 TD/TT: 05/04/251947 Corporate Development Associate: Cora Deleon MD IMG US PROCEDURES Final Result * Lipid Panel with Reflex to Direct LDL (02/11/2025 9:01 AM EDT) Triglycerides 79 <150 mg/dL [facility] Comment:Desirable Triglyceri de: less than 150 mg/dLBorderline High Triglyceride 150-199 mg/dLHigh Triglyceride: 200-499 mg/dLVery High Triglyceride: greater than or equal to 5OO mg/dL Cholesterol 140 <200 mg/dL [facility] Comment:Desirable Cholestero l: less than 200 mg/dLBorderline High Cholesterol: 200-239 mg/dLHigh Cholesterol: greater than 239 mg/dL LDL Cholesterol Calculated 62 <100 mg/dL [facility] Comment:Desirable LDL: less than 100 mg/dLNear Optimal/Above Optimal LDL: 110- 129 mg/dLBorderline High LDL: 130-159 mg/dLHigh LDL: 160-189 mg/dLVery High LDL: greater than or equal to 190 mg/dL HDL Cholesterol 63 >40 mg/dL [facility] Comment:Desirable HDL: great er than 40 mg/dL Note: This HDL assay may give artificially low results in patients with liver disease. Blood 02/11/2025 9:01 AM EDT 02/11/2025 9:01 AM EDT Cora Deleon MD LAB BLOOD ORDERABLES Fin al Result [facility] [address] [place] [phone] * HM PAP/HPV (05/31/2020 8:09 AM EDT) Historical Provider [facility] MAINTENANCE Final Result * HPV E6/E7 RFLX MARIA A 16 18/45 (12/28/2018 11:25 AM EST) HPV mRNA E6/E7 Not Detected [facility] Comment: This test was performed using the APTIMA(R) HPV Assay ([employer] This assay detects E6/E7 viral messenger RNA (mRNA) from 14 high-risk HPV types (16,18,31,33,35,39,45,51, 52,56,58,59,66,68). For additional information please refer to: http://education.[employer]/faq/MIE890w1 (This link is being provided for informational/ educational purposes only.) The analytical performance characteristics of this assay have been determined by [employer] [place], [place]. The modifications have not been cleared or approved by the FDA. This assay has been validated pursuant to the CLIA regulations and is used for clinical purposes. Please note: Effective 07/21/2016, HPV testing will be performed using [employer]'s APTIMA test which targets mRNA. Detecting mRNA instead of DNA, as in older methods, offers significant improvements in specificity. ADDITIONAL TESTING Not indicated () [facility] Comment: Test Performed by [employer] [place], [employer] [facility], [address] [place] [address] Roberto Peres M.D., Ph.D., Director of Laboratories , CLIA [id number] HPV 18/45 RNA Test not performed [facility] HPV 16 RNA Test not performed [facility] 12/28/2018 11:2 5 AM EST Cora Deleon MD HISTORICAL/NON ORDERABLE LABS Final Result [facility] [address] from Last 3 Months or Most Recently Relevant to Health Maintenance Insurance [facility] HMO Care Teams Configuration Engineer Relationship Specialty Start Date End Date Cora Deleon MD [address] [place] [id number] PCP - General Family Medicine 06/28/18
== END 2025-07-20 12:20 | disposition home or self-care (01) ==
LOC: HO.MAMMO 12:19
PROVIDERS: PCP Internal Medicine; Visit Provider Internal Medicine
DX: N64.89 Other specified disorders of breast (principal)
CPT/HCPCS: 76642; 77062; 77066

== ENCOUNTER → 2025-07-20 12:35 | Outpatient (BNV) | payer BC, SELFPAY | PROVIDERS: PCP Internal Medicine; Visit Provider Internal Medicine | DX: N60.01 Solitary cyst of right breast (principal); R59.0 Localized enlarged lymph nodes | CPT/HCPCS: 77062; 77066 ==

== ENCOUNTER 2025-07-25 07:55 | Outpatient (AMB) | payer BC, SELFPAY ==
--- OUTSIDE RECORDS SUMMARY | 2024-04-15 11:00 | XMS_ITS ---
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 Physical Encounters Encounter Location Date Provider Diagnosis [facility] [facility] [address] [address] 04/15/2024 STEVE SEALS Encounter for gynecological examination (general) (routine) without abnormal findings Z01.419 ; Encounter for screening mammogram for malignant neoplasm of breast Z12.31 and Encounter for screening for infections with a predominantly sexual mode of transmission Z11.3 Assessments Encounter Date Diagnosis (ICD Code) Assessment Notes Treatment Notes Treatment Clinical Notes Section Notes 04/15/2024 Encounter for gynecological examination (general) (routine) without abnormal findings (ICD-10 - Z01.419) During the visit, the following areas of concern were addressed: Discussed cervical cancer screening with either cytology alone every 3 years or high risk HPV co-testing every 5 years as per ASCCP guidelines. Advised continued annual pelvic exams. Patient encouraged to increase her level of exercise. SBE technique encouraged/tau ght. Patient reminded when annual mammogram is due. Patient encouraged to keep colon screening up to date. 04/15/2024 Encounter for screening mammogram for malignant neoplasm of breast (ICD-10 - Z12.31) 04/15/2024 Encounter for screening for infections with a predominantly sexual mode of transmission (ICD-10 - Z11.3) Plan Of Treatment Treatment Notes Assessment Notes Encounter for gynecological examination (general) (routine) without abnormal findings During the visit, the following areas of concern were addressed: Discussed cervical cancer screening with either cytology alone every 3 years or high risk HPV co-testing every 5 years as per ASCCP guidelines. Advised continued annual pelvic exams. Patient encouraged to increase her level of exercise. SBE technique encouraged/taught. Patient reminded when annual mammogram is due. Patient encouraged to keep colon screening up to date. Pending Test Test Name Order Date MM Digital Screening Mammogram 3D 2023 Next Appt Details Follow Up: 1 Year, Reason: Y early Solutions Manager Exam Provider Name:STEVE Waylon Ang, 08/15/2025 03:30:00 PM, [address], [address], [place], [address], Progress Notes * ZHANG CANASDOB:1975 (50 yo F)Acc No.[id number]:04/15/2024 PROGRESS NOTES Patient: ZHANG BRUNNER Provider: Waylon SEALS MD :1975 A ge:48 Y S ex:Female Date:04/15/2024 Address:[address] [place], [place] [id number] Pcp:OMKAR MANNING Subjective: * Chief Complaints: * 1 . 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 She has been in state of good health since her last exam. She has the following concerns:. She has received the Pf[employer] Covid-19 vaccine. Relationship status: for nearly 26 years. She is sexually active. Sexual partner(s): male. She does wish to have STI testing. Menses: Contraception: vasectomy She does report vaginal dryness. She does have hot flashes/night sweats. The patient has had an abnormal pap smear within the last 5 years. Her most recent pap smear was 01/01/2020 - NIL, Neg HR HPV. Next due for cotesting in 2024. She has been diagnosed with breast cancer. She does have a family history of breast cancer. Her last mammogram was . She does have a family history of colon cancer. She a has had a colonoscopy. The last colonoscopy was . The patient does exercise. She exercises x days/week by . * ROS: A nnual Solutions Manager Exam ROS: Bowel habit changes d enies. B ladder symptoms d enies. V aginal discharge, unusual d enies. V aginal itch or odor d enies. w eight or appetite changes d enies. C hest pains, SOB d enies. d epression d enies.? B reast: Denies B reast lump. D enies N ipple discharge.? H ematology: Denies S wollen glands. S kin: Patient denies c hanging moles. P sychiatric: Denies A nxiety. * Medical History: Objective: * Vitals: * Examination: G eneral Examination: GENERAL APPEARANCE: i n no acute distress, well developed, well nourished, supervisor final present in room. HEAD: n ormocephalic, atraumatic. NECK/THYROID: n nila supple, full range of motion, thyroid normal. LYMPH NODES: n o axillary or supraclavicular adenopathy.? SKIN: normal, good turgor, no rashes, no suspicious lesions. BREASTS: normal, no dimpling, no discharge, no drainage, no masses palpable bilaterally, nontender. ABDOMEN: soft, non-tender, non distended without masses or hepatosplenomegay. RECTAL: normal tone, no masses palpable. BACK: no costovertebral angle tenderness. FEMALE GENITOURINARY: V ulva without lesions or masses, vagina pink without abnormal discharge, lesions or masses, cervix appears normal and is not tender to palpation, uterus is normal size, mobile, nontender and anteverted, ovaries are not palpable. NEUROLOGIC: alert and oriented, gait normal. PSYCH: alert, oriented, cognitive function intact, cooperative with exam, good eye contact, mood/affect full range, speech clear. Assessment: * Assessment: 1. E ncounter for gynecological examination (general) (routine) without abnormal findings - Z01.419 (Primary) 2 . E ncounter for screening mammogram for malignant neoplasm of breast - Z12.31 3 . E ncounter for screening for infections with a predominantly sexual mode of transmission - Z11.3 Plan: * Treatment: 2. E ncounter for screening mammogram for malignant neoplasm of breast I maging: MM Digital Screening Mammogram 3D * Follow Up: 1 Year (Reason: Yearly Solutions Manager Exam) * Images: Billing Information: * Visit Code: 38237 Preventive Care Est Pt. Age 40-64. 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 She has been in state of good health since her last exam. She has the following concerns:. She has received the [employer] Covid-19 vaccine. Relationship status: for nearly 26 years. She is sexually active. Sexual partner(s): male. She does wish to have STI testing. Menses: Contraception: vasectomy She does report vaginal dryness. She does have hot flashes/night sweats. The patient has had an abnormal pap smear within the last 5 years. Her most recent pap smear was 01/01/2020 - NIL, Neg HR HPV. Next due for cotesting in 2024. She has been diagnosed with breast cancer. She does have a family history of breast cancer. Her last mammogram was . She does have a family history of colon cancer. She a has had a colonoscopy. The last colonoscopy was . The patient does exercise. She exercises x days/week by . Examination Category Sub-Category Detail Notes Category Not es General Examination GENERAL APPEARANCE: in no ac [place] distress, well developed, well nourished, supervisor final present in room HEAD: normocephalic, atrau matic NECK/THYROID: neck supple, full ra nge of motion, thyroid normal ABDOMEN: soft, non-tender, no n distended without masses or hepatosplenomegay NEUROLOGIC: alert and oriented, gait normal SKIN: normal, good turgor, no rashes, no suspicious lesions BACK: no costovertebral an gle tenderness BREASTS: normal, no dimpling, no discharge, no drainage, no masses palpable bilaterally, nontender LYMPH NODES: no axillary or supra clavicular adenopathy RECTAL: normal tone, no mass es palpable PSYCH: alert, oriented, cog nitive function intact, cooperative with exam, good eye contact, mood/affect full range, speech clear FEMALE GENITOURINARY: Vulva without lesi ons or masses, vagina pink without abnormal discharge, lesions or masses, cervix appears normal and is not tender to palpation, uterus is normal size, mobile, nontender and anteverted, ovaries are not palpable
--- OUTSIDE RECORDS SUMMARY | 2024-04-15 11:00 | XMS_ITS ---
Author Organization [employer] Address [address] [place] [address] Care Team Providers Care Salesperson Sheet Music Name Role Phone OMKAR MANNING Primary Care Provider Unav ailable STEVE SEALS Unavailable [phone] REASON FOR VISIT Annual REFUSE COLLECTOR SUPERVISOR Physical Encounters Encounter Location Date Provider Diagnosis [facility] [address] [facility] [address] [place] [address] 04/15/2024 STEVE SEALS Plan Of Treatment Next Appt Details Provider Name:STEVE Ang, 08/15/2025 03:30:00 PM, [address] [facility], [address], [place], [address], Progress Notes * ZHANG CANASDOB:1975 (50 yo F)Acc No.[id number]:04/15/2024 PROGRESS NOTES Patient: ZHANG BRUNNER Provider: Waylon SEALS MD :1975 A ge:48 Y S ex:Female Date:04/15/2024 Address:[address] [place], [place] [id number] Pcp:OMKAR MANNING Subjective: * Chief Complaints: * 1 . 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 * Medical History: Objective: * Vitals: Assessment: Plan: * Treatment: * Images: Billing Information: * Visit Code: * Procedure Codes: * Electronic signature of STEVE SEALS MD on 07/25/2025 at 08:02 AM EDT Sign off status: Pending * Provider: Waylon SEALS MD Date: 0 04/15/2024 Generated for Rober orellana/Palmira/Kinzaitting on: 0 07/25/2025 08:02 AM EDT
--- OUTSIDE RECORDS SUMMARY | 2024-06-20 09:50 | XMS_ITS ---
Author Organization [facility] Address [address] [place] [address] Care Team Providers Care Telephonic Nurse Case Manager Name Role Phone OMKAR MANNING Primary Care Provider Unav ailable STEVE SEALS Unavailable [phone] REASON FOR VISIT Annual POWER PLANT OPERATOR APPRENTICE Physical Encounters Encounter Location Date Provider Diagnosis [facility] [address] [facility] [place] [address] [place] [address] 06/20/2024 STEVE SEALS Plan Of Treatment Next Appt Details Provider Name:STEVE Ang, 08/15/2025 03:30:00 PM, [address] [facility] [place] [address], [place], [address], Progress Notes * ZHANG CANASDOB:1975 (50 yo F)Acc No.[id number]:06/20/2024 PROGRESS NOTES Patient: ZHANG BRUNNER Provider: Waylon SEALS MD :1975 A ge:49 Y S ex:Female Date:06/20/2024 Address:[address] [place], [place] [id number] Pcp:OMKAR MANNING Subjective: * Chief Complaints: * 1 . Annual POWER PLANT OPERATOR APPRENTICE Physical. * Medical History: Objective: * Vitals: Assessment: Plan: * Treatment: * Images: Billing Information: * Visit Code: * Procedure Codes: * Electronic signature of STEVE SEALS MD on 07/25/2025 at 08:02 AM EDT Sign off status: Pending * Provider: Waylon SEALS MD Date: 0 06/20/2024 Generated for Rober orellana/Palmira/Kinzaitting on: 0 07/25/2025 08:02 AM EDT
--- OUTSIDE RECORDS SUMMARY | 2025-07-25 08:02 | XMS_ITS | Encounter Summary ---
Author Organization [employer] Address [address] [facility] 7t [place] [address] Care Team Providers Care Traffic Circuit Engineer Name Role Phone Cora Deleon MD Primary Care Provider + Reason for Visit * Reason Comments Med Refill Encounter Details Date Type Department Care Team ([facility] st Contact Info) Description 06/14/2025 Refill [facility] [address] [place], [place] [phone] Cora Deleon MD [address] [place] [address] Social History Tobacco Use Types Packs/Day Years [...] documented as of this encounter Care Teams Traffic Circuit Engineer Relationship Specialty Start Date End Date Cora Deleon MD [address] [place] [id number] PCP - General Family Medicine 06/28/18 documented as of this encounter
--- OUTSIDE RECORDS SUMMARY | 2025-07-25 08:02 | XMS_ITS | Encounter Summary ---
Author Organization [employer] Address [address] [place] [address] 7 [place] [address] Care Team Providers Care Aqua Ammonia Operator Name Role Phone Cora Deleon MD Primary Care Provider + Reason for Visit * Reason Onset Date Comments Referral 11/30/2024 Encounter Details Date Type Department Care Team ([facility] st Contact Info) Description 11/30/2024 Telephone [facility] MEDICINE [address] [place], [place] [phone] Cora Deleon MD [address] [place], [place] [phone] Referral Social History Tobacco Use Types Packs/Day [...] documented as of this encounter Care Teams Aqua Ammonia Operator Relationship Specialty Start Date End Date Cora Deleon MD [address] [place] [phone] PCP - General Family Medicine 06/28/18 documented as of this encounter
--- OUTSIDE RECORDS SUMMARY | 2025-07-25 08:02 | XMS_ITS | Encounter Summary ---
Author Organization [employer] Address [address] [facility] 7t [place] [address] Care Team Providers Care Grain Sacker Name Role Phone Cora Deleon MD Primary Care Provider + Reason for Visit * Reason Comments Med Refill Encounter Details Date Type Department Care Team ([facility] st Contact Info) Description 03/27/2025 Refill [facility] [address] [place], [place] [phone] Cora Deleon MD [address] [place] [address] Social History Tobacco Use Types Packs/Day Years [...] documented as of this encounter Care Teams Grain Sacker Relationship Specialty Start Date End Date Cora Deleon MD [address] [place] [id number] PCP - General Family Medicine 06/28/18 documented as of this encounter
--- OUTSIDE RECORDS SUMMARY | 2025-07-25 08:02 | XMS_ITS | Encounter Summary ---
Author Organization [employer] Address [address] [facility] 7t [place] [address] Care Team Providers Care Associate Programmer Analyst Name Role Phone Cora Deleon MD Primary Care Provider + Encounter Details Date Type Department Care Team (Late st Contact Info) Description 12/12/2024 Orders Only [facility] MEDICINE [address] [place] [address] Provider, MD [place] Social History Tobacco Use [...] documented as of this encounter Care Teams Associate Programmer Analyst Relationship Specialty Start Date End Date Cora Deleon MD [address] [place] [phone] PCP - General Family Medicine 06/28/18 documented as of this encounter
--- OUTSIDE RECORDS SUMMARY | 2025-07-25 08:02 | XMS_ITS | Encounter Summary ---
Author Organization [employer] Address [address] [facility] 7t [place] [address] Care Team Providers Care Copy Center Operator Name Role Phone Cora Deleon MD Primary Care Provider + Encounter Details Date Type Department Care Team ([facility] st Contact Info) Description 07/20/2025 Orders Only [facility] MEDICINE [address] [place] [address] Cora Deleon MD [address] [place] [address] Social History Tobacco Use Types Packs/Day Years [...] PM EDT Narrative 07/20/2025 1:16 PM EDT [address] [place] [address] Mammography Report Signed Patient: Sneha Ruiz MR#: [id number] 001 : 1975 Acct:[id number] Age/Sex: 50 / F ADM Date: 07/20/25 Loc: HO.MAMMO Attending Dr: Cora Deleon MD Ordering Physician: Cora Deleon MD Results: 3.6MProbably Benign Finding - Short 6 M F/U Suggested Date of Service: 07/20/25 Follow Up: 6 Month F/U Procedure(s): MM tomosynthesis diagnostic BI Accession Number(s): [id number] cc: Cora Deleon MD EXAMINATION: MM DIAGNOSTIC [...] 07/20/25 1313 DD/ 1235 TD/TT: 07/20/25 1250 Bankruptcy Assistant: Procedure Note Donotuseinterpreter, Image - 07/20/2025 [facility] [address] [place], [place] [address] Mammography Report Signed Patient: Sneha Ruiz MMR#: [id number] 001 : 1975Acct:[id number] Age/Sex: 50 / FADM Date: 07/20/25 Loc: HO.MAMMO Attending Dr: Cora Deleon MD Ordering Physician: Cora Deleon MD Results: 3.6MProbably Benign Finding - Short 6 M F/U Suggested Date of Service: 07/20/25Follow Up: 6 Month F/U Procedure(s): MM tomosynthesis diagnostic BI Accession Number(s): [id number] cc: Cora Deleon MD EXAMINATION: MM DIAGNOSTIC [...] 07/20/25 1313 DD/ 1235 TD/TT: 07/20/25 1250 Bankruptcy Assistant: us Cora Deleon MD IMG BI PROCEDURES Final Result documented in this encounter Visit Diagnoses Not on filedocumented in this encounter Additional Health Concerns Assessment Noted Time PHQ-9 Depression Total Score: 0 02/10/20 23 4:03 PM EDT documented as of this encounter Care Teams Copy Center Operator Relationship Specialty Start Date End Date Cora Deleon MD [address] [place] [id number] PCP - General Family Medicine 06/28/18 documented as of this encounter
--- NOTE | 2025-07-25 08:03 | A.OFFVIS_ITS ---
Intake Visit Reasons: bilateral renal cyst Intake Note: Patient is present for bilteral renal cyst Urology Medication:none Antibiotic Allergy:none Blood Thinner:ASPIRIN TODAY'S PVR:0ML'S Land Development Project Manager Required: No Allergies No Known Allergies (No Known Allergies*) Allergy (Verified 07/25/25 09:18) Medication List - Last Reconciled 07/25/25 by KIMMY Swan- albuterol sulfate 90 mcg/actuation 2 puffs inhalation Q4H PRN aspirin 81 mg PO DAILY atorvastatin 40 mg PO DAILY budesonide-formoterol 80-4.5 mcg/actuation inhalation ferrous gluconate mg PO DAILY fluticasone propionate 50 mcg/actuation 1 spray intranasal DAILY levothyroxine 125 mcg PO DAILY losartan-hydrochlorothiazide 100-25 mg 1 tab PO DAILY HPI Comments Details: Sneha is a very pleasant 50-year-old female patient of Dr. Deleon. She has a past medical history of hyperlipidemia and hypertension. She presents to the office today as a new patient for renal cysts. In discussion with the patient today she reports having had a recent ultrasound at which time recommendations were made for urology referral for further assessment evaluation. These results were reviewed and communicated with the patient today. 05/03 bilateral kidneys with no focal abnormality or hydronephrosis. Large bilateral septated renal cyst otherwise unremarkable abdominal ultrasound. In review of patient's chart it appears patient with previous imaging dating back to 01/30 that noted bilateral renal cysts. We did discuss at length potential causes of renal cysts as well as classifications of renal cysts. When asked she denies any bothersome urinary issues or concerns. In office urinalysis results reviewed with the patient today. She denies urinary urgency, urinary frequency, incontinence, nocturia, hematuria, dysuria, foul smelling urine, changes to urinary stream, flank pain, fever, and or chills. She is happy with her current voiding parameters. All questions were answered. She otherwise offers no other issues or concerns at this time. [facility] Social History Alcohol intake: current Alcohol intake frequency: holidays/special occasions only Review of Systems Const All systems reviewed & are unremarkable except as noted in HPI and below Physical Exam Const General: cooperative, healthy appearing, comfortable, no acute distress, well developed, alert and awake Orientation/consciousness: patient oriented x3 Limitations: no limitations HEENT Head: Yes normal to inspection, Yes normocephalic and Yes atraumatic Ears: hearing grossly normal bilaterally Eyes General: appearance normal, both eyes and all related structures Neck Neck: Yes normal visual inspection and Yes trachea midline Chest Chest palpation & inspection: normal inspection of the chest Resp Effort & Inspection: normal respiratory effort and able to speak in complete sentences Cardio Rate: regular rate GI Inspection: Yes normal to inspection General: Yes no CVA tenderness Back/Spine/Pelvis Back: no CVA tenderness Skin General skin exam: no rashes or lesions noted Neuro General: patient oriented x3 Extrem General: Yes normal to inspection Psych Appearance: grossly normal and well kempt Mental Status: mental status grossly normal Speech and movement: Normal speech and movement present and Clear speech present Affect: normal affect Attitude: cooperative Thought process: Normal thought process present Thought content: Normal thought content present Insight: Fair insight present (Psych) Judgement: Fair judgement present (Psych) Office Procedures Post Void Residual Post Residual Void Post Void Residual (PVR): 0 49560-Gzss Void Residual by ultrasound Results AMB Urinalysis, Automated UA Leukoctes 0 Ambar/uL Last Edit by KRISTEN Mckenna on 07/25/25 08:18 UA Nitrite Negative Last Edit by KRISTEN Mckenna on 07/25/25 08:18 UA Urobilinogen 0.2 mg/dL Last Edit by KRISTEN Mckenna on 07/25/25 08:1 8 UA Protein 0 mg/dL Last Edit by KRISTEN Mckenna on 07/25/25 08:18 UA pH 7.0 Last Edit by KRISTEN Mckenna on 07/25/25 08:18 UA Blood 0 Roderick/uL Last Edit by KRISTEN Mckenna on 07/25/25 08:18 UA Specific [place] 1.010 Last Edit by KRISTEN Mckenna on 07/25/25 08: 18 UA Ketone Negative Last Edit by KRISTEN Mckenna on 07/25/25 08:18 UA Bilirubin 0 mg/dL Last Edit by KRISTEN Mckenna on 07/25/25 08:18 UA Glucose 0 mg/dL Last Edit by KRISTEN Mckenna on 07/25/25 08:18 Results Reviewed Results Reviewed: Laboratory Last Values Urine pH (Auto) 7.0 07/25/25 08:18 Specific [place] (Auto) 1.010 07/25/25 08:18 Urine Protein (Auto) 0 mg/dL 07/25/25 08:18 Glucose (UA)(Auto) 0 mg/dL 07/25/25 08:18 Urine Ketones (Auto) Negative 07/25/25 08:18 Urine Blood (Auto) 0 Roderick/uL 07/25/25 08:18 Urine Nitrite (Auto) Negative 07/25/25 08:18 Urine Bilirubin (Auto) 0 mg/dL 07/25/25 08:18 Urine Urobilinogen (Auto) 0.2 mg/dL 07/25/25 08:18 Leukocyte Esterase (Auto) 0 Ambar/uL 07/25/25 08:18 Date of Service: 05/04/25 Procedure(s): US abdomen complete Findings: Gallbladder unremarkable, no stone formation or wall thickening. Common duct measures 2 mm. No sonographic Schmitt sign. Liver is homogeneous and normal in size and echogenicity. Main portal vein patent with normal direction of flow. Pancreas is unremarkable. Aorta and IVC patent and normal in caliber. The right kidney is normal, 12.0 cm in length. No focal abnormality or hydronephrosis. 6.1 cm septated cyst. The left kidney is normal, 12.7 cm in length. No focal abnormality or hydronephrosis. 8.1 x 7.4 cm septated cyst. The spleen is normal, 9.1 cm in length. No focal abnormality. Impression: Large bilateral septated renal cysts Otherwise unremarkable Assessment & Plan Assessment & Plan (1) Renal cyst: Code(s): N28.1 - Cyst of kidney, acquired Category: Medical Plan In office urinalysis results reviewed with the patient today; as noted above. PVR 0 mL Recent renal imaging results reviewed with the patient today; as noted above. We discussed at length potential causes of renal cysts as well as classifications of renal cysts. Will continue with surveillance monitoring. She currently denies any bothersome urinary issues or concerns. She reports be happy with current voiding parameters. Will obtain renal ultrasound in 6 months. Follow-up in 6 months with imaging; or sooner with any issues, concerns, and or questions Orders: Orders AMB Urinalysis Automated Today Z13.9 - Encounter for screening, unspecified US renal BI 6 Months N28.1 - Cyst of kidney, acquired Patient Instructions: The patient had an opportunity to ask questions regarding the treatment plan. All questions were answered. Physical exam, labs, and imaging were discussed and reviewed in detail. As well as risks, benefits, and discussion of treatment choices. No major barriers to understanding were identified. The patient expressed understanding and agreement with the above treatment plan. The patient was made aware they should contact our office by phone for worsening of their current condition, the appearance of new symptoms, or with any questions or concerns. Compliance is encouraged with any medications and follow up testing that is ordered. It is a privilege to be allowed the opportunity to participate in? your urological care.? Again, if you have any questions or concerns If you have any questions or concerns please do not hesitate to contact me. The office is [phone]. This note is constructed using voice recognition software. While every effort has been made to ensure accuracy search engine optimizer errors may have been included. Yours sincerely, SARAH Swan Coding Level of Care Code New Pt Level 3 (60065) Diagnoses Renal cyst N28.1 CPT Codes Post Residual Void - PVR CPT Code: 24517-Slgt Void Residual by ultrasound ([id number])
--- OUTSIDE RECORDS SUMMARY | 2025-07-25 08:03 | XMS_ITS | Clinical Summary ---
Author Organization [employer] Address [address] [place] [address] 7t [place] [address] Care Team Providers Care Health Technician Name Role Phone Omkar Deleon MD Primary Care Provider + Allergies [...] home. PAP smear.- UTD, she will contact PROCESS TRAINER to schedule Pap smear this year. Mammogram.- [...] keep track of menstrual cycles. FU with PROCESS TRAINER. Order labs to rule out hypothyroidism. Allergic [...] related to perimenopause changes. Will FU after PROCESS TRAINER evaluation. Subacute maxillary sinusitis 09/28/2024 Assessment & [...] to continue on iron supplementation. Follow-up with PROCESS TRAINER in 3 months, will consider HRT if symptoms/bleeding is not controlled Assessment & Plan (05/19/2024 11:57 AM EDT): Patient irregular menses cycles probably related to menopause. Hemoglobin is stable and will continue with Iron pills daily and follow up with PROCESS TRAINER. Assessment & Plan (01/06/2024 7:27 PM EST): Most likely perimenopause, she'll keep menstrual bleeding log FU with PROCESS TRAINER this year for PAP smear Order labs [...] and zyrtec Pt made an appointment for learning operations specialist will FU after that. Moderate persistent asthma [...] Plan (02/09/2023 4:51 PM EDT): See sinusitis. OMKAR positive 12/01/2022 Coronary arteriosclerosis 12/01/2022 Assessment & [...] Department Care Team Description 07/20/2025 Orders Only [facility] MEDICINE [address] [place] [address] Omkar Deleon MD 07/07/2025 Refill [facility] MEDICINE [address] [facility], [place] [phone] Sneha Lea MD 06/26/2025 Refill [facility] MEDICINE [address] [place] [address] Omkar Deleon MD 06/14/2025 Results Follow-Up [facility] MEDICINE [address] [place] [address] Omkar Deleon MD BI Mammogram Screening Tomosynthesis Bilateral 06/14/2025 Refill [facility] [address] [place] [address] Omkar Deleon MD 06/02/2025 Orders Only [facility] MEDICINE [address] [place] [address] Omkar Deleon MD 05/11/2025 Telephone [facility] MEDICINE [address] [facility], [place] [phone] Omkar Deleon MD July recall from Last 3 [...] 2025 , 09/18/2021, 08/01/2019, Additional history exists Diagnostic Breast Imaging 01/17/2026 07/20/2025, Family Planning (PISQ) 01/18/2026 01/18/2025 Disability Screening 04/13/2026 04/13/2025 Tobacco Screening 04/13/2026 04/13/2025 Lipid Panel 02/11/2030 02/11/2025, 03/12/2023, 03/01/2021 DTaP/Tdap/Td Vaccines (2 - Td or [...] PM EDT Narrative 07/20/2025 1:16 PM EDT [facility] [address] [place] [address] Mammography Report Signed Patient: Sneha Ruiz MR#: [id number] 001 : 1975 Acct:[id number] Age/Sex: 50 / F ADM Date: 07/20/25 Loc: HO.MAMMO Attending Dr: Omkar Deleon MD Ordering Physician: Omkar Deleon MD Results: 3.6MProbably Benign Finding - Short 6 M F/U Suggested Date of Service: 07/20/25 Follow Up: 6 Month F/U Procedure(s): MM tomosynthesis diagnostic BI Accession Number(s): [id number] cc: Omkar Deleon MD EXAMINATION: MM DIAGNOSTIC DIGITAL BREAST [...] 07/20/25 1313 DD/ 1235 TD/TT: 07/20/25 1250 Slate Worker: Procedure Note Donotuseinterpreter, Image - 07/20/2025 [facility] [address] [place] [address] Mammography Report Signed Patient: Sneha uRiz MMR#: [id number] 001 : 1975Acct:[id number] Age/Sex: 50 / FADM Date: 07/20/25 Loc: HO.MAMMO Attending Dr: Omkar Deleon MD Ordering Physician: Omkar Deleon MD Results: 3.6MProbably Benign Finding - Short 6 M F/U Suggested Date of Service: 07/20/25Follow Up: 6 Month F/U Procedure(s): MM tomosynthesis diagnostic BI Accession Number(s): [id number] cc: Omkar Deleon MD EXAMINATION: MM DIAGNOSTIC DIGITAL BREAST [...] 07/20/25 1313 DD/ 1235 TD/TT: 07/20/25 1250 Slate Worker: Omkar Deleon MD IMG BI PROCEDURES Final Result * BI Mammogram Screening Tomosynthesis Bilateral (06/02/2025 2:20 PM EDT) Anatomical Region Laterality Modality Breast Bilateral Mammography 06/02/2025 2:20 PM EDT Narrative 06/13/2025 11:11 AM EDT [facility] [address] [place] [address] Mammography Report Signed Patient: Sneha Ruiz MR#: [id number] 001 : 1975 Acct:[id number] Age/Sex: 50 / F ADM Date: 06/02/25 Loc: HO.MAMMO Attending Dr: Omkar Deleon MD Ordering Physician: Omkar Deleon MD Results: 0In complete: Needs Additional Imaging Evaluation Date of Service: 06/02/25 Follow Up: Additional Imagi ng Procedure(s): MM tomosynthesis screening BI Accession Number(s): [id number] cc: Omkar Deleon MD EXAMINATION: MM SCREENING DIGITAL BREAST [...] 06/13/25 1109 DD/ 1420 TD/TT: 06/02/25 1430 Slate Worker: Procedure Note Donotkiminterpreter, Image - 06/13/2025 [facility] [address] [place] [address] Mammography Report Signed Patient: Sneha Ruiz MMR#: [id number] 001 : 1975Acct:[id number] Age/Sex: 50 / FADM Date: 06/02/25 Loc: HO.MAMMO Attending Dr: Omkar Deleon MD Ordering Physician: Omkar Deleon MDResults: 0In complete: Needs Additional Imaging Evaluation Date of Service: 06/02/25Follow Up: Additional Imagi ng Procedure(s): MM tomosynthesis screening BI Accession Number(s): [id number] cc: Omkar Deleon MD EXAMINATION: MM SCREENING DIGITAL BREAST [...] Mehreen Pennington DO 06/13/2025 11:09 AM EDT RP Dictated By: Mehreen Pennington DO Signed By: <Electronically signed by Mehreen Pennington DO in OV> 06/13/25 1109 DD/ 1420 TD/TT: 06/02/25 1430 Slate Worker: us Omkar Deleon MD IMG BI PROCEDURES Edited Result - Final * US Abdomen Complete (05/04/2025 7:48 PM EDT) Anatomical Region Laterality Modality Abdomen Ultrasound 05/04/2025 7:48 PM EDT Narrative 05/04/2025 7:51 PM EDT [address] [address] Ultrasound Report Signed Patient: Sneha Ruiz MR#: [id number] 001 : 1975 Acct:[id number] Age/Sex: 49 / F ADM Date: 05/04/25 Loc: HO.US Attending Dr: Omkar Deleon MD Ordering Physician: Omkar Deleon MD Date of Service: 05/04/25 Procedure(s): US abdomen complete Accession Number(s): [id number] cc: Omkar Deleon MD CLINICAL HISTORY: Upper abdomen and [...] in OV> 05/04/251948 DD/ 47 TD/TT: 05/04/251947 Slate Worker: Procedure Note Donotuseinterpreter, Image - 05/04/2025 [place] [address] Ultrasound Report Signed Patient: Sneha Ruiz MMR#: [id number] 001 : 1975Acct:[id number] Age/Sex: 49 / FADM Date: 05/04/25 Loc: HO.US Attending Dr: Omkar Deleon MD Ordering Physician: Omkar Deleon MD Date of Service: 05/04/25 Procedure(s): US abdomen complete Accession Number(s): [id number] cc: Omkar Deleon MD CLINICAL HISTORY: Upper abdomen and [...] in OV> 05/04/251948 DD/ 47 TD/TT: 05/04/251947 Slate Worker: us Omkar Deleon MD IMG US PROCEDURES Final Result * Lipid Panel with Reflex to Direct LDL (02/11/2025 9:01 AM EDT) Triglycerides 79 <150 mg/dL [facility] Comment:Desirable Triglyceri de: less than 150 mg/dLBorderline High Triglyceride 150-199 mg/dLHigh Triglyceride: 200-499 mg/dLVery High Triglyceride: greater than or equal to 5OO mg/dL Cholesterol 140 <200 mg/dL [facility] Comment:Desirable Cholestero l: less than 200 mg/dLBorderline High Cholesterol: 200-239 mg/dLHigh Cholesterol: greater than 239 mg/dL LDL Cholesterol Calculated 62 <100 mg/dL [facility] Comment:Desirable LDL: less than 100 mg/dLNear Optimal/Above Optimal LDL: 110- 129 mg/dLBorderline High LDL: 130-159 mg/dLHigh LDL: 160-189 mg/dLVery High LDL: greater than or equal to 190 mg/dL HDL Cholesterol 63 >40 mg/dL [facility] Comment:Desirable HDL: great er than 40 mg/dL Note: This HDL assay may give artificially low results in patients with liver disease. Blood 02/11/2025 9:01 AM EDT 02/11/2025 9:01 AM EDT mOkar Deleon MD LAB BLOOD ORDERABLES Fin al Result [facility] [address] [place] [phone] * HM PAP/HPV (05/31/2020 8:09 AM EDT) us Historical Provider HEALTH MAINTENANCE Final Result * HPV E6/E7 RFLX MARIA A 16 18/45 (12/28/2018 11:25 AM EST) HPV mRNA E6/E7 Not Detected NOT DETECTED [facility] Comment: This test was performed using the APTIMA(R) HPV Assay ([employer] This assay detects E6/E7 viral messenger RNA (mRNA) from 14 high-risk HPV types (16,18,31,33,35,39,45,51, 52,56,58,59,66,68). For additional information please refer to: http://education.Landingi/faq/GLZ104u6 (This link is being provided for informational/ educational purposes only.) The analytical performance characteristics of this assay have been determined by [facility] [place], [place]. The modifications have not been cleared or approved by the FDA. This assay has been validated pursuant to the CLIA regulations and is used for clinical purposes. Please note: Effective 07/21/2016, HPV testing will be performed using [employer] APTIMA test which targets mRNA. Detecting mRNA instead of DNA, as in older methods, offers significant improvements in specificity. ADDITIONAL TESTING Not indicated () [facility] Comment: Test Performed by [employer] [facility], [employer] [facility] [place], [address] [place] [address] Roberto Peres M.D., Ph.D., Director of Laboratories , [place] [id number] HPV 18/45 RNA Test not performed [facility] HPV 16 RNA Test not performed [facility] 12/28/2018 11:2 5 AM EST Omkar Deleon MD HISTORICAL/NON ORDERABLE LABS Final Result [facility] [address] from Last 3 Months or Most Recently Relevant to Health Maintenance Insurance [facility] HMO Care Teams Health Technician Relationship Specialty Start Date End Date Omkar Deleon MD [address] [place] [phone] PCP - General Family Medicine 06/28/18
--- OUTSIDE RECORDS SUMMARY | 2025-07-25 08:03 | XMS_ITS | Encounter Summary ---
Author Organization [employer] Address [address] [facility] 7 [place] [address] Care Team Providers Care Security Engineer Name Role Phone Cora Deleon MD Primary Care Provider + Reason for Visit * Reason Onset Date Comments Appointment Request 11/24/2023 Encounter Details Date Type Department Care Team ([facility] Contact Info) Description 11/24/2023 Telephone [facility] MEDICINE [address] [place], [place] [phone] Cora Deleon MD [address] [place], [place] [phone] Appointment Request Social History Tobacco Use Types [...] t he electric, gas, oil or water [employer] threatened to shut off services in your [...] documented as of this encounter Care Teams Security Engineer Relationship Specialty Start Date End Date Cora Deleon MD [address] [place] [address] PCP - General Family Medicine 06/28/18 documented as of this encounter
--- OUTSIDE RECORDS SUMMARY | 2025-07-25 08:03 | XMS_ITS | Encounter Summary ---
Author Organization [employer] Address [address] [facility] 7 [place] [address] Care Team Providers Care Records Supervisor Name Role Phone Cora Deleon MD Primary Care Provider + Reason for Visit * Reason Onset Date Comments Med Refill 12/29/2023 Encounter Details Date Type Department Care Team ([facility] Contact Info) Description 12/29/2023 Telephone [facility] MEDICINE [address] [place], [place] [phone] Cora Deleon MD [address] [place] [address] Med Refill Social History Tobacco Use Types [...] the past 12 months, has t he [employer], gas, oil or water company threatened to [...] 125 MCG tablet To be sent to: [id number] [place], [place] - [address] [place] [address] documented in this encounter Plan of Treatment Not on file documented as of this encounter Visit Diagnoses Not on filedocumented in this encounter Additional Health Concerns Assessment Noted Time PHQ-9 Depression Total Score: 0 02/10/20 23 4:03 PM EDT documented as of this encounter Care Teams Records Supervisor Relationship Specialty Start Date End Date Cora Deleon MD [address] [place] [address] PCP - General Family Medicine 06/28/18 documented as of this encounter
--- OUTSIDE RECORDS SUMMARY | 2025-07-25 08:03 | XMS_ITS | Patient Health Record ---
Author Organization [employer] [facility] Address [address] [facility] [address] [place] [address] Care Team Providers Care Ball Maker Name Role Phone OMKAR MANNING MARIA Primary Care Provider Unav ailable STEVE SEALS Unavailable [phone] Allergies No Known Allergies Results Component Value Reference Range Notes PDF Report Reviewed date:08/11/2024 02:10:35 PM Interpretation: Performing Lab:[facility], [address], [address], [place], Phone - [phone], [facility] - [facility] Notes/Report: Clinical Information:[id number] LMP / Prev Treat...SZD=[id number];Cryo No. of containers..01 ThinPrep Vial [id number] IGP No Culture 30 Plus Reviewed date:08/11/2024 02:03:48 PM Interpretation: Performing Lab:[facility], [address], [address], [place], Phone - [phone], [facility] Notes/Report: Clinical Information:[id number] LMP / Prev Treat...ZEU=[id number];Cryo No. of containers..01 ThinPrep Vial DIAGNOSIS: NEGATIVE FOR INTRAEPITHELIAL LESION OR MALIGNANCY. FUNGAL ORGANISMS MORPHOLOGICALLY CONSISTENT WITH JESICA SPECIES ARE PRESENT. Specimen adequacy: Satisfactory for evaluation. Endocervical and/or squamous metaplastic cells (endocervical component) are present. Clinician provided ICD10: Z0 1.419 Performed by: Maryan maradiaga, Warp Tension Tester (ASCP) . . Note: The Pap smear [...] Criteria not met, HPV Genotype not performed. Reason For Referral No Information Medications Medication [...] W/U Status Risk Notes Problem Essential hypertension (42052985) Essential (primary) hypertension (I10) Active confirmed Problem Postcoital bleeding (22851704) Postcoital and contact bleeding (N93.0) Active confirmed Problem Long-term current use of anticoagulant (057860794) jail (current) use of anticoagulants (Z79.01) Active confirmed Vital Signs Temperature 98.0 degrees Fahrenheit 08/08/2024 Blood pressure diastolic 78 mm Hg 08/08/2024 Height 67 in 08/08/2024 Blood pressure systolic 110 mm Hg 08/08/2024 Weight 166 lbs 08/08/2024 BMI 26 kg/m2 08/08/2024 Encounters Encounter Location Date Provider Diagnosis Total [facility] [address] [place] [address] 08/08/2024 STEVE SEALS Encounter for gynecological examination [...] Provider Name:STEVE Ang, 08/15/2025 03:30:00 PM, [address], [place], [address], Insurance Providers Payer Name Payer Address Payer Phone Subscriber Number Group Number Insured Name Patient Relationship to Insured Coverage Start Date Coverage End Date [employer] [place] [address] [place] [address] [id number] ZHANG CANAS Self - patient is the [...]
--- OUTSIDE RECORDS SUMMARY | 2025-07-25 08:03 | XMS_ITS | Encounter Summary ---
Author Organization [employer] Address [address] [facility] 7t [place] [address] Care Team Providers Care Manager Medical Name Role Phone Cora Deleon MD Primary Care Provider + Reason for Visit * Reason Comments Med Refill Encounter Details Date Type Department Care Team ([facility] st Contact Info) Description 10/25/2023 Refill [facility] MEDICINE [address] [place] [address] Cora Deleon MD [address] [place] [address] Social History Tobacco Use Types Packs/Day Years [...] documented as of this encounter Care Teams Manager Medical Relationship Specialty Start Date End Date Cora Deleon MD [address] [place] [address] PCP - General Family Medicine 06/28/18 documented as of this encounter
== END 2025-07-25 08:37 | disposition home or self-care (01) ==
LOC: HO.HUSH 07:56
PROVIDERS: PCP Internal Medicine; Visit Provider Nurse Practitioner Family
DX: Z13.9 Encounter for screening, unspecified (principal); N28.1 Cyst of kidney, acquired
CPT/HCPCS: 99203

== ENCOUNTER → 2025-07-25 07:55 | Outpatient (BNVA) | payer BC, SELFPAY | PROVIDERS: PCP Internal Medicine; Visit Provider Nurse Practitioner Family | DX: N28.1 Cyst of kidney, acquired (principal) | CPT/HCPCS: 51798; 81003 ==

== ENCOUNTER 2025-10-02 18:27 | Outpatient (REF) | payer BC, SELFPAY ==
--- OUTSIDE RECORDS SUMMARY | 2025-10-02 13:20 | XMS_ITS | Encounter Summary ---
Author Organization [email or web address] Address [address] [facility] 7[address] [place] [address] Care Team Providers Care Food Tester Name Role Phone Cora Deleon MD Primary Care Provider + Reason for Visit * Reason Comments UTI Encounter Details Date Type Department Care Team ([facility] st Contact Info) Description 10/02/2025 1:20 PM EST Office Visit [facility] [address] [place], [place] [phone] Mary Bello NP [address] [place] [address] UTI symptoms Social History Tobacco Use Types Packs/Day Years [...] AM EDT documented as of this encounter Last Filed Vital Signs Vital Sign Reading Time Taken Comments Blood Pressure 121/80 10/02/2025 1:24 PM EST Pulse 94 10/02/2025 1:24 PM EST Temperature 36.8 C (98.2 F) 10/02/2025 1:24 PM EST Respiratory Rate 17 10/02/2025 1:24 PM EST Oxygen Saturation 99% 10/02/2025 1:24 PM EST Inhaled Oxygen Concentration - - Weight 77 kg (169 lb 12.8 oz) 10/02/2025 1:24 PM EST Height 170.2 cm (5' 7 ) 10/02/2025 1:24 PM EST Body Mass Index 26.59 10/02/2025 1:24 PM EST documented in this encounter Progress Notes * Mary Bello, KIM - 10/02/2025 1:20 PM EST Sneha Ruiz, age 50, female - History of urinary tract infection in the past - Onset of lower abdominal pain and urinary urgency in the morning of October 02, 2025 - Symptoms improved after increased water intake - Mild right-sided back pain - Denies visible blood in urine - Denies fever or chills - Denies recent antibiotic use - Denies exposure to sexually transmitted infections or vaginal discharge - Denies change in bowel habits Problem List[1] Medical History[2] Allergies[3] Review of Systems Constitutional: Negative for activity change and appetite change. Genitourinary: Positive for dysuria, frequency and urgency. Negative for hematuria. BP 121/80 (BP Location: Left arm, Patient Position: Sitting, BP Cuff Size: Adult) Pulse 94 Temp98.2 ??F (36.8 ??C) (Temporal) Resp 17 Ht 5' 7 (1.702 m) Wt 169 lb 12.8 oz (77 kg) SpO2 99% BMI 26.59 kg/m?? Physical Exam Vitals reviewed. Constitutional: Appearance: She is obese. HENT: Head: Normocephalic and atraumatic. Nose: Nose normal. Eyes: Conjunctiva/sclera: Conjunctivae normal. Cardiovascular: Rate and Rhythm: Normal rate and regular rhythm. Pulmonary: Effort: Pulmonary effort is normal. Breath sounds: Normal breath sounds. Abdominal: Tenderness: There is no abdominal tenderness. There is no right CVA tenderness or left CVA tenderness. Musculoskeletal: Cervical back: Normal range of motion and neck supple. Neurological: General: No focal deficit present. Mental Status: She is alert. Results: No visits with results within 28 Day(s) from this visit. Latest known visit with results is: Orders Only on 04/13/2025 Component Date Value Ref Range Status Slide Review 04/13/2025 VERIFIED Final Assessment & Plan UTI symptoms Orders: POCT urinalysis dipstick manually resulted (CPT 31140) Culture, Urine, Routine Current Medications[4] Based on our discussion, I have outlined the following instructions for you: - Take one Nitrofurantoin tablet two times a day for 7 days. - A urine test has been sent to the lab. Check your patient portal for the results. - You can take Pyridium once a day for up to 3 days if you have bladder discomfort. This medicine may turn your urine a bright orange color, which is normal. - You can take ibuprofen for pain if you are able to take it safely. - Drink plenty of water every day. - Call the office if you do not feel better in 2 to 3 days, if you get any new or worrying symptoms, or if your symptoms do not go away after finishing your medicine. Thank you again for your visit, and we look forward to supporting you in your journey to better health. This note was drafted using Ambient (AI) technology. The patient/patient's guardian has been informed and has consented to the use of this technology: Yes [1] Patient Active Problem List Diagnosis Acquired hypothyroidism Adjustment insomnia Allergic rhinitis due to pollen CORA positive Anxiety Coronary arteriosclerosis History of coronary artery stent placement Hypertensive disorder Moderate persistent asthma without complication Paresthesia of lower extremity Postcoital bleeding Vitamin D deficiency Irritant contact dermatitis Acute sinusitis Moderate persistent asthma with exacerbation DUB (dysfunctional uterine bleeding) Renal cyst, acquired, right Anemia Encounter for screening for malignant neoplasm of colon Epicondylitis, lateral, left Subacute maxillary sinusitis Encounter for preventive health examination Oligomenorrhea Allergic conjunctivitis of both eyes Overweight Slow transit constipation Petechiae Pain of upper abdomen Renal cyst, acquired, left UTI symptoms [2] History reviewed. No pertinent past medical history. [3] No Known Allergies [4] Current Outpatient Medications: albuterol 108 (90 Base) MCG/ACT inhaler, inhale 2 puff by inhalation route every 4 - 6 hours as needed for cough, wheeze, sob, Disp: , Rfl: ascorbic acid (Vitamin C) 500 MG tablet, TAKE 1 TABLET(500 MG) BY MOUTH IN THE MORNING, Disp: 90 tablet, Rfl: 0 ASPIRIN 81 MG chewable tablet, as directed, Disp: , Rfl: atorvastatin (Lipitor) 40 MG tablet, TAKE 1 TABLET BY MOUTH EVERY DAY AT BEDTIME, Disp: 90 tablet, Rfl: 1 budesonide (Pulmicort) 180 MCG/ACT inhaler, Inhale 1 puff in the morning and at bedtime. Rinse mouth with water after use to reduce aftertaste and incidence of candidiasis. Do not swallow., Disp: 1 each, Rfl: 11 ferrous gluconate (Fergon) 324 (38 Fe) MG tablet, TAKE 1 TABLET(324 MG) BY MOUTH WITH BREAKFAST, Disp: 90 tablet, Rfl: 0 fexofenadine (Irina) 180 MG tablet, Take 1 tablet (180 mg) by mouth if needed each day (Allergies)., Disp: 30 tablet, Rfl: 0 fluticasone (Flonase) 50 MCG/ACT nasal spray, Administer 1 spray into each nostril Once per day., Disp: 16 g, Rfl: 2 Ketotifen Fumarate 0.035 % solution, Administer 1 drop into both eyes 2 times daily., Disp: 10 mL, Rfl: 3 levothyroxine (Synthroid, Levoxyl) 125 MCG tablet, TAKE 1 TABLET(125 MCG) BY MOUTH 1 TIME BEFORE BREAKFAST FOR HYPOTHYROIDISM, Disp: 90 tablet, Rfl: 1 losartan-hydroCHLOROthiazide (Hyzaar) 100-25 MG tablet, TAKE 1 TABLET BY MOUTH EVERY DAY FOR HIGH BLOOD PRESSURE, Disp: 90 tablet, Rfl: 1 nitrofurantoin, macrocrystal-monohydrate, (Macrobid) 100 MG capsule, Take 1 capsule (100 mg) by mouth 2 times daily for 7 days., Disp: 14 capsule, Rfl: 0 phenazopyridine (Pyridium) 200 MG tablet, Take 1 tablet (200 mg) by mouth if needed in the morning,at noon, and at bedtime for bladder spasms for up to 3 days., Disp: 9 tablet, Rfl: 0 senna-docusate sodium (Senokot-S) 8.6-50 MG tablet, Take 1 tablet by mouth Once per day., Disp: 30 tablet, Rfl: 0 documented in this encounter Miscellaneous Notes * Assessment & Plan Note - Mary Bello NP - 10/02/2025 1:20 PM ESTAssociated Problem(s): UTI symptoms Orders: POCT urinalysis dipstick manually resulted (CPT 42083) Culture, Urine, Routine documented in this encounter Plan of Treatment Scheduled Orders Name Type Priority Associated Diagnoses Orde r Schedule Culture, Urine, Routine Microbiology Routine UTI symptoms Ordered: 10/02/2025 documented as of this encounter Procedures Procedure Name Priority Date/Time Associated Diagnosis Comments POCT URINALYSIS DIPSTICK Routine 10/02/2025 2:33 PM EST UTI symptoms documented in this encounter Results * (ABNORMAL) POCT urinalysis dipstick manually resulted (CPT 25718) (10/02/2025 2:33 PM EST) Color, UA Yellow Clarity, UA Clear Glucose, UA Negative Bilirubin, UA Negative Ketones, UA Negative Spec Grav, UA 1.005 Blood, UA Positive(A) Negative, None Detected Comment:trace-intact pH, UA 5.5 Protein, UA Negative Urobilinogen, UA 0.2 Leukocytes, UA Trace Negative, Rare, Trace Nitrite, UA Negative Negative, None Detected Urine (Urine, Random) 10/02/2025 2:33 PM EST Result [facility] Mary Bello FOOT PIECE ASSEMBLER POINT OF CARE TEST ENTER/EDIT OR DERABLES Final Result documented in this encounter Visit Diagnoses Diagnosis UTI symptoms documented in this encounter Additional Health Concerns Assessment Noted Time PHQ-9 Depression Total Score: 0 02/10/20 23 4:03 PM EDT documented as of this encounter Care Teams Food Tester Relationship Specialty Start Date End Date Cora Deleon MD [address] [place] [address] PCP - General Family Medicine 06/28/18 documented as of this encounter
--- OUTSIDE RECORDS SUMMARY | 2025-10-02 20:36 | XMS_ITS | Encounter Summary ---
Author Organization [employer] Address [address] [place] [address] 7 [place] [address] Care Team Providers Care Shactor Name Role Phone Cora Deleon MD Primary Care Provider + Reason for Visit * Reason Onset Date Comments Med Refill 08/24/2025 Encounter Details Date Type Department Care Team ([facility] Contact Info) Description 08/24/2025 Telephone [facility] MEDICINE [address] [place], [place] [phone] Cora Deleon MD [address] [place] [address] Med Refill Social History Tobacco Use Types [...] Telephone Encounter - Lakesha Rooney LPN - 08/24/2025 8:17 AM EDT Medication prescribed by FLOR BARRERA * Telephone Encounter - Kathie Dobbins - 08/24/2025 8:12 AM EDT TC from pt requesting medication refill. Medications needing refill : - Symbicort 80-4.5 MCG/ACT inhaler To be sent to: - [id number] [place], [place] - [address] [place] [address] documented in this encounter Plan of Treatment Not on file documented as of this encounter Visit Diagnoses Not on filedocumented in this encounter Additional Health Concerns Assessment Noted Time PHQ-9 Depression Total Score: 0 02/10/20 23 4:03 PM EDT documented as of this encounter Care Teams Shactor Relationship Specialty Start Date End Date Cora Deleon MD [address] [place] [id number] PCP - General Family Medicine 06/28/18 documented as of this encounter
--- OUTSIDE RECORDS SUMMARY | 2025-10-02 20:36 | XMS_ITS | Encounter Summary ---
Author Organization [employer] Address [address] [facility] 7t [place] [address] Care Team Providers Care Autism Tutor Name Role Phone Cora Deleon MD Primary Care Provider + Reason for Visit * Reason Comments Med Refill Encounter Details Date Type Department Care Team ([facility] st Contact Info) Description 10/25/2023 Refill [facility] MEDICINE [address] [place], [place] [phone] Cora Deleon MD [address] [place], [place] [phone] Social History Tobacco Use Types Packs/Day Years [...] documented as of this encounter Care Teams Autism Tutor Relationship Specialty Start Date End Date Cora Deleon MD [address] [place] [phone] PCP - General Family Medicine 06/28/18 documented as of this encounter
--- OUTSIDE RECORDS SUMMARY | 2025-10-02 20:36 | XMS_ITS | Encounter Summary ---
Author Organization [employer] Address [address] [place] [address] 7 [place] [address] Care Team Providers Care Transfer Table Operator Helper Name Role Phone Cora Deleon MD Primary Care Provider + Reason for Visit * Reason Onset Date Comments Referral 11/30/2024 Encounter Details Date Type Department Care Team ([facility] Contact Info) Description 11/30/2024 Telephone [facility] MEDICINE [address] [place], [place] [phone] Cora Deleon MD [address] [place], [place] [phone] Referral Social History Tobacco Use Types Packs/Day [...] documented as of this encounter Care Teams Transfer Table Operator Helper Relationship Specialty Start Date End Date Cora Deleon MD [address] [place] [id number] PCP - General Family Medicine 06/28/18 documented as of this encounter
--- OUTSIDE RECORDS SUMMARY | 2025-10-02 20:36 | XMS_ITS | Encounter Summary ---
Author Organization [employer] Address [address] [facility] [address]t [address] [place] [address] Care Team Providers Care Expert Witness Name Role Phone Cora Deleon MD Primary Care Provider + Encounter Details Date Type Department Care Team (Late st Contact Info) Description 12/12/2024 Orders Only [facility] MEDICINE [address] [place], [place] [phone] Provider, MD [place] Social History Tobacco Use [...] documented as of this encounter Care Teams Expert Witness Relationship Specialty Start Date End Date Cora Deleon MD [address] [place] [id number] PCP - General Family Medicine 06/28/18 documented as of this encounter
--- OUTSIDE RECORDS SUMMARY | 2025-10-02 20:36 | XMS_ITS | Encounter Summary ---
Author Organization [employer] Address [address] [facility] 7 [place] [address] Care Team Providers Care Classification And Treatment Director Name Role Phone Cora Deleon MD Primary Care Provider + Reason for Visit * Reason Onset Date Comments Appointment Request 11/24/2023 Encounter Details Date Type Department Care Team ([facility] Contact Info) Description 11/24/[address] [facility] MEDICINE [address] [place], [place] [phone] Cora Deleon MD [address] [place], [place] [phone] Appointment Request Social History Tobacco Use Types [...] t he electric, gas, oil or water [employer] threatened to shut off services in your [...] documented as of this encounter Care Teams Classification And Treatment Director Relationship Specialty Start Date End Date Cora Deleon MD [address] [place] [address] PCP - General Family Medicine 06/28/18 documented as of this encounter
--- OUTSIDE RECORDS SUMMARY | 2025-10-02 20:36 | XMS_ITS | Clinical Summary ---
Author Organization [email or web address] Address [address] [place] [address] 7[address] [place] [address] Care Team Providers Care Tribal Delegate Name Role Phone Omkar Deleon MD Primary Care Provider + Allergies No known active allergies Medications ASPIRIN 81 MG chewable tablet as directed Ac tive albuterol 108 (90 Base) MCG/ACT inhaler inhale 2 puff by inhalation route every 4 - 6 hours as needed for cough, wheeze, sob 07/30/20 21 Active ascorbic acid (Vitamin C) 500 MG tablet TAKE 1 TABLET(500 MG) BY MOUTH IN THE MORNING 90 tablet 04/07/20 24 Active fexofenadine (Irina) 180 MG tablet Take 1 tablet (180 mg) by mouth if needed each day (Allergies). 30 tablet 09/28/20 24 Active Ketotifen Fumarate 0.035 % solutionIndications :Allergic conjunctivitis of both eyes Administer 1 drop into both eyes 2 times daily. 10 mL 3 01/19/20 25 Active fluticasone (Flonase) 50 MCG/ACT nasal spray Administer 1 spray into each nostril Once per day. 16 g 2 01/19/20 25 Active senna-docusate sodium (Senokot-S) 8.6-50 MG tablet Take 1 tablet by mouth Once per day. 30 tablet 04/13/20 25 2025 Active levothyroxine (Synthroid, Levoxyl) 125 MCG tablet TAKE 1 TABLET(125 MCG) BY MOUTH 1 TIME BEFORE BREAKFAST FOR HYPOTHYROIDISM 90 tablet 1 04/18/20 25 Active losartan-hydroCHLOR Othiazide (Hyzaar) 100-25 MG tabletIndications:C oronary arteriosclerosis TAKE 1 TABLET BY MOUTH EVERY DAY FOR HIGH BLOOD PRESSURE 90 tablet 1 04/18/20 Active atorvastatin (Lipitor) 40 MG tablet TAKE 1 TABLET BY MOUTH EVERY DAY AT BEDTIME 90 tablet 1 06/26/20 Active ferrous gluconate (Fergon) 324 (38 Fe) MG tablet TAKE 1 TABLET(324 MG) BY MOUTH WITH BREAKFAST 90 tablet 07/07/20 Active budesonide (Pulmicort) 180 MCG/ACT inhaler Inhale 1 puff in the morning and at bedtime. Rinse mouth with water after use to reduce aftertaste and incidence of candidiasis. Do not swallow. 1 each 11 08/26/20 25 2025 Active nitrofurantoin, macrocrystal-monohy drate, (Macrobid) 100 MG capsule Take 1 capsule (100 mg) by mouth 2 times daily for 7 days. 14 capsule 10/02/20 25 2024 Active phenazopyridine (Pyridium) 200 MG tablet Take 1 tablet (200 mg) by mouth if needed in the morning, at noon, and at bedtime for bladder spasms for up to 3 days. 9 tablet 10/02/20 25 2024 Active Active Problems Problem Noted Date Diagnosed Date UTI symptoms 10/02/2025 Assessment & Plan (10/02/2025 1:52 PM EST): Orders: POCT urinalysis dipstick manually resulted (CPT 25937) Culture, Urine, Routine Renal cyst, acquired, left 2025 Slow transit [...] home. PAP smear.- UTD, she will contact STATION MASTER to schedule Pap smear this year. Mammogram.- [...] keep track of menstrual cycles. FU with STATION MA[facility]. Order labs to rule out hypothyroidism. Allergic [...] related to perimenopause changes. Will FU after [facility]ATION [facility] evaluation. Subacute maxillary sinusitis 09/28/2024 Assessment & [...] to continue on iron supplementation. Follow-up with STATION MASTER in 3 months, will consider HRT if symptoms/bleeding is not controlled Assessment & Plan (05/19/2024 11:57 AM EDT): Patient irregular menses cycles probably related to menopause. Hemoglobin is stable and will continue with Iron pills daily and follow up with [facility]ATION [facility]. Assessment & Plan (01/06/2024 7:27 PM EST): Most likely perimenopause, she'll keep menstrual bleeding log FU with STATION MASTER this year for PAP smear Order labs [...] and zyrtec Pt made an appointment for barkeeper will FU after that. Moderate persistent asthma [...] Encounters Date Type Department Care Team Description 10/02/2025 1:20 PM EST Office Visit [facility] [address] [phone] Mary Bello NP UTI symptoms 10/02/2025 Travel 08/26/2025 9:20 AM EDT Office Visit [facility] [address] [place] [place] [address] Vonda Lund CNP Mild intermittent asthma with exacerbation (Primary Dx) 08/26/2025 Travel 08/24/2025 Telephone [facility] [address] [facility] [address] Omkar Deleon MD Med Refill 07/20/2025 Orders Only [facility] [address] [place], [place] [phone] Omkar Deleon MD 07/07/2025 Refill [facility] [address] [place] [address] Sneha Lea MD from Last 3 Months Immunizations Immunization Administration Dates Next Due Influenza injectable quadriv alent preservative free 09/18/2021,08/01/2019,08/21/2018 Influenza, seasonal, injecta ble, preservative free 01/18/2025 Peak Rx #2 SARS-CoV-2 Vaccination 01/24/2021,2020 Pfizer Covid-19 Vaccine 12+ [...] Mass Index 26.59 10/02/2025 1:24 PM EST Plan of Treatment Health Maintenance Due Date Last Done Comments CT Colonography 1975 Colonoscopy 1975 Colorectal Cancer Screening 1975 FIT DNA/Cologuard 1975 FIT 1975 FOBT 1975 HIV Screening 1975 Sigmoidoscopy 1975 Alcohol/Substance Use Screening 1987 Hepatitis C Screening 1993 Hepatitis B Vaccines (1 of 3 - 19+ 3-dose series) 1994 RSV Patients and Patients Aged 60 years or older (1 - Risk 50-74 years 1-dose series) 2025 SDOH Screening 05/11/2025 05/11/2024 Depression Screening 05/19/2025 05/19/2024, 02/10/20 Cervical Cancer Screening 05/31/2025 HPV/Cotest 05/31/2025 12/28/2018 Pap Smear 05/31/2025 05/31/2020, 12/28/2018 COVID-19 Vaccine ( season) 2025 09/18/2021, 01/24/2021, 01/02/2021 Zoster Vaccines (2 of 2) 10/26/2025 08/31/2025 Diagnostic Breast Imaging 01/17/20262024, 07/20/2025, 03/05/2023 Mammogram 01/17/2026 07/20/2025, 07/10, 06/02/2025, Additional history exists Family Planning (PISQ) 01/18/2026 01/18/2025 Disability Screening 04/13/2026 04/13/2025 Tobacco Screening 10/02/2026 10/02/2025 Lipid Panel 02/11/2030 02/11/2025, 03/0 12/2023, 03/01/2021 DTaP/Tdap/Td Vaccines (2 - Td or Tdap) 05/19/2034 05/19/2024 Pneumococcal Vaccine: 50+ Years Completed 05/19/2024 Influenza Vaccine Completed 08/31/2025, , 09/18/2021, Additional history exists HIB Vaccines Aged Out No longer eligi [...] Routine 10/02/2025 2:33 PM EST UTI symptoms BI US BREAST LIMITED BILATERAL Routine 07/20/2025 1:01 PM EDT BI MAMMOGRAM DIAGNOSTIC TOMOSYNTHESIS BILATERAL Routine 07/20/2025 12:35 PM EDT LIPID PANEL WITH REFLEX TO DIRECT LDL Routine 02/11/2025 9:01 AM EDT Encounter for preventive health examination HM PAP/HPV Routine 05/31/2020 8:09 AM EDT ZZZ HISTORICAL HPV E6/E7 RFLX MARIA A 16 18/45 Routine 12/28/2018 11:25 AM EST from Last 3 Months or Most Recently Relevant to Health Maintenance Results * (ABNORMAL) POCT urinalysis dipstick manually resulted (CPT 07420) (10/02/2025 2:33 PM EST) Color, UA Yellow Clarity, UA Clear Glucose, UA Negative Bilirubin, UA Negative Ketones, UA Negative Spec Grav, UA 1.005 Blood, UA Positive(A) Negative, None Detected Comment:trace-intact pH, UA 5.5 Protein, UA Negative Urobilinogen, UA 0.2 Leukocytes, UA Trace Negative, Rare, Trace Nitrite, UA Negative Negative, None Detected Urine (Urine, Random) 10/02/2025 2:33 PM EST Mary Bello NP POINT OF CARE TEST ENTER/EDIT OR DERABLES Final Result * BI US Breast Limited Bilateral (07/20/2025 1:01 PM EDT) Anatomical Region Laterality Modality Breast Bilateral Ultrasound 07/20/2025 1:01 PM EDT Narrative 08/01/2025 7:55 AM EDT [facility] [address] [place], [place] [address] Ultrasound Report Signed Patient: Sneha Ruiz MR#: [id number] 001 : 1975 Acct:[id number] Age/Sex: 50 / F ADM Date: 07/20/25 Loc: HO.MAMMO Attending Dr: Omkar Deleon MD Ordering Physician: Omkar Deleon MD Date of Service: 07/20/25 Procedure(s): US breast BI limited mamm only Accession Number(s): [id number] cc: Omkar Deleon MD Reason for Exam: RT BR ASYNMMETRY, LT BR NODE EXAMINATION: MM DIAGNOSTIC DIGITAL BREAST TOMOSYNTHESIS, BILATERAL [...] at time of visit by the technologist. US/US breast BI limited mamm only IMPRESSION: Right: 1. Asymmetry superior breast on [...] Pennington DO in OV> 07/20/25 1313 DD/ 1301 TD/TT: 07/20/25 1317 Tray Line Worker: Procedure Note Donotuseinterpreter, Image - 08/01/2025 [facility] [address] [place] [address] Ultrasound Report Signed Patient: Sneha Ruiz MMR#: [id number] 001 : 1975Acct:[id number] Age/Sex: 50 / FADM Date: 07/20/25 Loc: HO.MAMMO Attending Dr: Omkar Deleon MD Ordering Physician: Omkar Deleon MD Date of Service: 07/20/25 Procedure(s): US breast BI limited mamm only Accession Number(s): [id number] cc: Omkar Deleon MD Reason for Exam: RT BR ASYNMMETRY, LT BR NODE EXAMINATION: MM DIAGNOSTIC DIGITAL BREAST TOMOSYNTHESIS, BILATERAL [...] at time of visit by the technologist. US/US breast BI limited mamm only IMPRESSION: Right: 1. Asymmetry superior breast on [...] Mehreen Pennington DO 07/20/2025 01:13 PM EDT RP Workstation: [email or web address] Dictated By: Mehreen Pennington DO Signed By: <Electronically signed by Mehreen Pennington DO in OV> 07/20/25 1313 DD/ 1301 TD/TT: 07/20/25 1317 Tray Line Worker: us Omkar Deleon MD IMG US PROCEDURES Final Result * BI Mammogram Diagnostic Tomosynthesis Bilateral (07/20/2025 12:35 PM EDT) Anatomical Region Laterality Modality Breast Bilateral Mammography 07/20/2025 12:3 5 PM EDT Narrative 07/20/2025 1:16 PM EDT [facility] [address] [place] [address] Mammography Report Signed Patient: Sneha Ruiz MR#: [id number] 001 : 1975 Acct:[id number] Age/Sex: 50 / F ADM Date: 07/20/25 Loc: HO.MAMMO Attending Dr: Omkar Deleon MD Ordering Physician: Omkar Deleon MD Results: 3.6MProbably Benign Finding - Short 6 M F/U Suggested Date of Service: 07/20/25 Follow Up: 6 Month F/U Procedure(s): MM tomosynthesis diagnostic BI Accession Number(s): [id number] cc: Omkar Deleon MD Reason For Exam: RT BR ASYNMMETRY, LT BR NODE EXAMINATION: MM DIAGNOSTIC DIGITAL BREAST TOMOSYNTHESIS, BILATERAL [...] 07/20/25 1313 DD/ 1235 TD/TT: 07/20/25 1250 Tray Line Worker: Procedure Note Donotuseinterpreter, Image - 08/01/2025 [facility] [address] [place] [address] Mammography Report Signed Patient: Sneha Ruiz MMR#: [id number] 001 : 1975Acct:[id number] Age/Sex: 50 / FADM Date: 07/20/25 Loc: HO.MAMMO Attending Dr: Omkar Deleon MD Ordering Physician: Omkar Deleon MD Results: 3.6MProbably Benign Finding - Short 6 M F/U Suggested Date of Service: 07/20/25Follow Up: 6 Month F/U Procedure(s): MM tomosynthesis diagnostic BI Accession Number(s): [id number] cc: Omkar Deleon MD Reason For Exam: RT BR ASYNMMETRY, LT BR NODE EXAMINATION: MM DIAGNOSTIC DIGITAL BREAST TOMOSYNTHESIS, BILATERAL [...] Mehreen Pennington DO 07/20/2025 01:13 PM EDT RP Workstation: [employer] Dictated By: Mehreen Pennington DO Signed By: <Electronically signed by Mehreen Pennington DO in OV> 07/20/25 1313 DD/ 1235 TD/TT: 07/20/25 1250 Tray Line Worker: us Omkar Deleon MD IMG BI PROCEDURES Edited Result - Final * Lipid Panel with Reflex to Direct LDL (02/11/2025 9:01 AM EDT) Triglycerides 79 <150 mg/dL [facility] Comment:Desirable Triglyceri de: less than 150 mg/dLBorderline High Triglyceride 150-199 mg/dLHigh Triglyceride: 200-499 mg/dLVery High Triglyceride: greater than or equal to 5OO mg/dL Cholesterol 140 <200 mg/dL [facility] Comment:Desirable Cholestero l: less than 200 mg/dLBorderline High Cholesterol: 200-239 mg/dLHigh Cholesterol: greater than 239 mg/dL LDL Cholesterol Calculated 62 <100 mg/dL [facility] Comment:Desirable LDL: less than 100 mg/dLNear Optimal/Above Optimal LDL: 110- 129 mg/dLBorderline High LDL: 130-159 mg/dLHigh LDL: 160-189 mg/dLVery High LDL: greater than or equal to 190 mg/dL HDL Cholesterol 63 >40 mg/dL [facility] Comment:Desirable HDL: great er than 40 mg/dL Note: This HDL assay may give artificially low results in patients with liver disease. Blood 02/11/2025 9:01 AM EDT 02/11/2025 9:01 AM EDT us Omkar Deleon MD LAB BLOOD ORDERABLES Fin al Result [facility] [address] [place] [address] [phone] * HM PAP/HPV (05/31/2020 8:09 AM EDT) Historical Provider HEALTH MAINTENANCE Final Result * HPV E6/E7 RFLX MARIA A 16 18/45 (12/28/2018 11:25 AM EST) HPV mRNA E6/E7 Not Detected NOT DETECTED [facility] Comment: This test was performed using the APTIMA(R) HPV Assay ([employer] This assay detects E6/E7 viral messenger RNA (mRNA) from 14 high-risk HPV types (16,18,31,33,35,39,45,51, 52,56,58,59,66,68). For additional information please refer to: http://education.StashMetrics/faq/VXE959p1 (This link is being provided for informational/ educational purposes only.) The analytical performance characteristics of this assay have been determined by [employer] [place], [place]. The modifications have not been cleared or approved by the FDA. This assay has been validated pursuant to the CLIA regulations and is used for clinical purposes. Please note: Effective 07/21/2016, HPV testing will be performed using [employer]'s APTIMA test which targets mRNA. Detecting mRNA instead of DNA, as in older methods, offers significant improvements in specificity. ADDITIONAL TESTING Not indicated () [facility] Comment: Test Performed by [employer], [facility], [address] [place], [place] Roberto Peres M.D., Ph.D., Director of Laboratories , CLIA [id number] HPV 18/45 RNA Test not performed [facility] HPV 16 RNA Test not performed [facility] 12/28/2018 11:2 5 AM EST Omkar Deleon MD HISTORICAL/NON ORDERABLE LABS Final Result [facility] [address] [place] [address], from Last 3 Months or Most Recently Relevant to Health Maintenance Insurance [facility] HMO Care Teams Tribal Delegate Relationship Specialty Start Date End Date Omkar Deleon MD [address] [place] [id number] PCP - General Family Medicine 06/28/18
--- OUTSIDE RECORDS SUMMARY | 2025-10-02 20:36 | XMS_ITS | Encounter Summary ---
Author Organization [employer] Address [address] [facility] [address]t [place] [address] Care Team Providers Care Sports Management Professor Name Role Phone Cora Deleon MD Primary Care Provider + Reason for Visit * Reason Comments Med Refill Encounter Details Date Type Department Care Team ([facility] st Contact Info) Description 06/14/2025 Refill [facility] [address] [place], [place] [phone] Cora Deleon MD [address] [place] [address] Social History Tobacco Use Types Packs/Day Years [...] documented as of this encounter Care Teams Sports Management Professor Relationship Specialty Start Date End Date Cora Deleon MD [address] [place] [phone] PCP - General Family Medicine 06/28/18 documented as of this encounter
--- OUTSIDE RECORDS SUMMARY | 2025-10-02 20:36 | XMS_ITS | Encounter Summary ---
Author Organization [employer] Address [address] [facility] 7t [place] [address] Care Team Providers Care Manufacturing Industrial Engineer Name Role Phone Cora Deleon MD Primary Care Provider + Encounter Details Date Type Department Care Team (Latest Contact Info) Description 10/02/2025 Travel Social History Tobacco Use Types Packs/Day Years Used Date Smoking Tobacco: Never Passive Smoke Exposure: Never Smokeless Tobacco: Never Alcohol Use Standard Drinks/Week Comments Yes 0 (1 standard drink = 0.6 oz pur e alcohol) social Depression Answer Date Recorded Patient Health Questionnaire-9 Score 0 02/09/2023 Housing Stability Answer Date Recorded What is your housing situation today? I have ericjennifer stallings 05/11/[address] you [...] documented as of this encounter Care Teams Manufacturing Industrial Engineer Relationship Specialty Start Date End Date Cora Deleon MD [address] [place] [phone] PCP - General Family Medicine 06/28/18 documented as of this encounter
--- OUTSIDE RECORDS SUMMARY | 2025-10-02 20:36 | XMS_ITS | Encounter Summary ---
Author Organization [employer] Address [address] [facility] 7t [place] [address] Care Team Providers Care Critical Care Rn Name Role Phone Cora Deleon MD Primary Care Provider + Reason for Visit * Reason Comments Med Refill Encounter Details Date Type Department Care Team ([facility] st Contact Info) Description 03/27/2025 Refill [facility] [address] [place], [place] [phone] Cora Deleon MD [address] [place] [address] Social History Tobacco Use Types Packs/Day Years [...] documented as of this encounter Care Teams Critical Care Rn Relationship Specialty Start Date End Date Cora Deleon MD [address] [place] [phone] PCP - General Family Medicine 06/28/18 documented as of this encounter
--- OUTSIDE RECORDS SUMMARY | 2025-10-02 20:36 | XMS_ITS | Encounter Summary ---
Author Organization [employer] Address [address] [facility] 7t [place] [address] Care Team Providers Care Fence Machine Operator Name Role Phone Cora Deleon MD Primary Care Provider + Reason for Visit * Reason Onset Date Comments Med Refill 12/29/2023 Encounter Details Date Type Department Care Team ([facility] Contact Info) Description 12/29/2023 Telephone [facility] [address] [place], [place] [phone] Cora Deleon MD [address] [place] [address] Med Refill Social History Tobacco Use Types [...] t he electric, gas, oil or water [facility] threatened to shut off services in your [...] 125 MCG tablet To be sent to: [id number] [place], [place] - [address] [place] [address] documented in this encounter Plan of Treatment Not on file documented as of this encounter Visit Diagnoses Not on filedocumented in this encounter Additional Health Concerns Assessment Noted Time PHQ-9 Depression Total Score: 0 02/10/20 23 4:03 PM EDT documented as of this encounter Care Teams Fence Machine Operator Relationship Specialty Start Date End Date Cora Deleon MD [address] [place] [address] PCP - General Family Medicine 06/28/18 documented as of this encounter
== END 2025-10-02 18:28 | disposition home or self-care (01) ==
LOC: HO.HHCLNP 18:27
PROVIDERS: Visit Provider Nurse Practitioner Family
DX: R39.9 Unspecified symptoms and signs involving the genitourinary system (principal)
CPT/HCPCS: 87086